=== PATIENT | female | born 1975 | race Two or more races ===

== ENCOUNTER 2020-05-13 09:07 | Outpatient (REF) | payer OTHER, SELFPAY ==
[2020-05-13 09:33] LABS: MANUAL DIFF FLAG NO
[2020-05-13 09:55] LABS: Basophils Percent Auto 0.5 % (0-2); Eosinophils Absolute Auto 0.1 X10*3/uL (0.0-0.4); Eosinophils Percent Auto 2.4 % (0-4); Hematocrit 42.3 % (37-47); Hemoglobin 13.7 g/dl (12.0-16.0); Imm Gran Abs Auto 0.02 X10*3/uL (0.00-0.03); Imm Gran Pct Auto 0.3 % (0.0-0.4); Lymphocytes Absolute Auto 1.7 X10*3/uL (1.2-4.9); Lymphocytes Percent Auto 27.9 % (20-40); Mean Corpuscular HGB Conc 32.4 g/dl (31.0-35.0); Mean Corpuscular Volume 83.3 fL (80-98); Mean Platelet Volume 10.2 fL (9.4-12.3); Monocytes Absolute Auto 0.4 X10*3/uL (0.1-1.2); Monocytes Percent Auto 5.9 % (2-11); Neutrophils Absolute Auto 3.8 X10*3/uL (2.0-8.3); Platelet Count 305 X10*3/uL (160-400); Red Blood Count 5.08 X10*6/uL (4.20-5.50); Red Cell Distribution Width 12.6 % (11.0-16.0)
[2020-05-13 10:20] LABS: Estimated Average Glucose 128 mg/dL; Hemoglobin A1c % 6.1 %
[2020-05-13 10:33] LABS: Alanine Aminotransferase 29 U/L (0-31); Albumin Level 4.6 g/dL (3.5-5.0); Alkaline Phosphatase 68 U/L (39-117); Anion Gap 16 (12-20); Aspartate Amino Transferase 25 U/L (5-31); Bilirubin Total 0.4 mg/dL (0.0-1.0); Blood Urea Nitrogen 14 mg/dL (9-16); Calcium 9.3 mg/dL (8.4-10.2); Carbon Dioxide 25 mmol/L (22-29); Chloride 103 mmol/L (96-108); Cholesterol 185 mg/dL; Estimated Glomerular Filt Rate > 60; Glucose Fasting 111 mg/dL (60-99); HDL Cholesterol 42 mg/dL; LDL Cholesterol Calculated 105 mg/dl; Potassium 4.5 mmol/l (3.3-5.1); Sodium 139 mmol/L (135-145); Total Protein 7.8 g/dL (6.5-8.0); Triglycerides 193 mg/dL
[2020-05-13 11:06] LABS: Folate > 20.0 ng/mL (> or = 4.0); Thyroid Stimulating Hormone 3.77 uIU/mL (0.32-4.0); Vitamin B12 914 pg/mL (200-900); Vitamin D 25-OH Total 30.1 ng/mL (>30)
[2020-05-13 11:47] LABS: T4 Thyroxine 6.2 ug/dL (4.5-12.0)
== END 2020-05-13 09:08 | disposition home or self-care (01) ==
LOC: HO.LAB 09:07
PROVIDERS: PCP Internal Medicine; Visit Provider Internal Medicine
DX: F41.8 Other specified anxiety disorders (principal); R73.01 Impaired fasting glucose
CPT/HCPCS: 36415; 80053; 80061; 82306; 82607; 82746; 83036; 84436; 84443; 85025

== ENCOUNTER 2020-06-07 10:51 | Outpatient (REF) | payer OTHER, SELFPAY ==
--- NOTE | 2020-06-07 10:54 | MM_ITS ---
EXAMINATION: MM SCREENING DIGITAL BREAST TOMOSYNTHESIS, BILATERAL CLINICAL INFORMATION: Screening. Asymptomatic. Family history breast cancer: Mother, sister, maternal grandmother. Benign ultrasound-guided right breast biopsy 05/09/2017 (fibroadenoma). The lifetime risk of breast cancer based on the Tyrer-Cuzick Model is 24%. COMPARISON: Mammography: 06/02/2019, 05/29/2018, 05/09/2017, 05/02/2017, 04/10/2017 TECHNIQUE: Digital breast tomosynthesis is performed in both the craniocaudal and mediolateral oblique views along with computer-aided detection (CAD). Synthesized 2D images are generated from the tomosynthesis. Additional left MLO view is provided. FINDINGS: The breasts are heterogeneously dense, which may obscure small masses (ACR BI-RADS breast composition Category c). There are no significant masses, abnormal calcifications, or other abnormalities. There is a known fibroadenoma again seen with biopsy clip marker posterior 3:30 position right breast. No significant changes from prior studies. MM/MM tomosynthesis screening BI IMPRESSION: No significant changes from prior studies. ASSESSMENT: BI-RADS 2: Benign RECOMMENDATION: 1. Routine annual mammography screening. 2. The lifetime risk of breast cancer based on the Tyrer-Cuzick Model is 24%. Additional annual adjunct screening with breast MRI may be of benefit in women with a risk score of 20% or greater. This patient's information was entered into a reminder system with a target due date for their next mammogram.
== END 2020-06-07 10:52 | disposition home or self-care (01) ==
LOC: HO.MAMMO 10:51
PROVIDERS: PCP Internal Medicine; Visit Provider Internal Medicine
DX: Z12.31 Encounter for screening mammogram for malignant neoplasm of breast (principal)
CPT/HCPCS: 77063; 77067

== ENCOUNTER 2020-07-05 12:48 | Outpatient (REF) | payer OTHER, SELFPAY ==
[2020-07-10 01:02] LABS: HPV 16 RNA DETECTED (NOT DETECTED); HPV mRNA E6/E7 rflx Detected (Not Detected)
== END 2020-07-05 12:49 | disposition home or self-care (01) ==
LOC: HO.LAB 12:48
PROVIDERS: Visit Provider Obstetrics & Gynecology
DX: Z01.419 Encounter for gynecological examination (general) (routine) without abnormal findings (principal); Z11.51 Encounter for screening for human papillomavirus (HPV); N87.0 Mild cervical dysplasia
CPT/HCPCS: 36415; 87624; 87625; 88141; 88142

== ENCOUNTER 2020-08-04 13:29 | Outpatient (REF) | payer OTHER, SELFPAY | END 2020-08-04 13:30 | disposition home or self-care (01) | LOC: HO.LAB 13:29 | PROVIDERS: Visit Provider Obstetrics & Gynecology | DX: N87.0 Mild cervical dysplasia (principal) | CPT/HCPCS: 57454; 81025; 88300; 88305 ==

== ENCOUNTER → 2020-08-18 14:19 | Outpatient (BNVA) | payer OTHER, SELFPAY | PROVIDERS: Visit Provider Obstetrics & Gynecology ==

== ENCOUNTER 2020-09-01 13:39 | Outpatient (REF) | payer OTHER, SELFPAY | END 2020-09-01 13:40 | disposition home or self-care (01) | LOC: HO.LAB 13:39 | PROVIDERS: Visit Provider Obstetrics & Gynecology | DX: N87.0 Mild cervical dysplasia (principal) | CPT/HCPCS: 57505; 88305; 99212 ==

== ENCOUNTER → 2020-09-21 13:32 | Outpatient (BNVA) | payer OTHER, SELFPAY | PROVIDERS: Visit Provider Obstetrics & Gynecology ==

== ENCOUNTER → 2020-10-07 09:32 | Outpatient (BNVA) | payer OTHER, SELFPAY | PROVIDERS: PCP Internal Medicine; Visit Provider Obstetrics & Gynecology | DX: N87.0 Mild cervical dysplasia (principal) | CPT/HCPCS: 99212 ==

== ENCOUNTER 2020-10-08 | Outpatient (REF) | payer OTHER, SELFPAY ==
[2020-10-08 09:33] VITALS: BMI 25.3
[2020-10-08 09:35] VITALS: BP 128/84; PULSE 83; RESP 16; TEMP 37.2; O2SAT 99
--- NOTE | 2020-10-08 10:19 | P.BOP_ITS ---
Brief Operative Note Date of Service: 05/14/20 Pre-op diagnosis: Persistent KELIN 1 with negative ECC Post-op diagnosis: same Procedure: LEEP Surgeon: Shay Magdaleno MD Anesthesia: other (Paracervical block) Was an Computer Information Science Professor used for this Procedure?: No Estimated blood loss (mL): 0 Pathology: other (Cervical cone +post Cerv lip) Condition: stable Disposition: other (Home)
--- NOTE | 2020-10-08 10:19 | MHC.SHP ---
Pre-Procedural Eval Section A The patient is an INPATIENT: No Changes since office visit: No Cold of Flu in the past 2 weeks, No New Medical Problems, No Changes in Medication and No Patient answered all questions The History & Physical has been completed within 30 days and I have reviewed it.: Yes Section B Chief Complaint: Persistant Mild cervical Dysplasia Allergies: Allergies Allergy/AdvReac Type Severity Reaction Status Date / Time No Known Allergies [NKA] Allergy Mild NOT Verified 10/07/20 09:44 APPLICABLE Plan Diagnosis/Plan: Unchanged I have reviewed the history and physical and performed a pertinent physical examination on my patient. No changes have occurred unless specified.
--- NOTE | 2020-10-08 10:20 | W.PM.OPN ---
Operative Note Operative Note Date of Service: 05/14/20 Narrative: Preop diagnosis: Persistent KELIN 1 with negative ECC Operation: LEEP Post op diagnosis: same Anesthesia: paracervical block Complications: none Pathology: Cervical cone and Posterior cervical lip QBL: minimal Procedure: The patient was put in the dorsal lithotomy position, was prepped and draped in the usual sterile fashion. A sterile speculum was inserted inside the patient vagina. Using Lugol solution the cervix with Dyed with Lugol solution to identifiy the abnormal demarcating line. 10 cc of Marcaine0.5% with epinephrine were given at 2,4 , 8, and 10 o'clock. Using a medium-size loop wire, the cervical cone was excised followed by the posterior cervical lip . Hemostasis was assured using cautery and Monsel solution. All instruments were taken out of the patient's vaginal cavity. the patient tolerated the procedure well and was discharged home with the following instructions: call if temperature is above 100.4, vaginal bleeding, abdominal pain or nausea or vomiting. Follow-up in the office in 2 weeks for postop visit
== END 2020-10-08 00:01 | disposition home or self-care (01) ==
LOC: HO.MS
PROVIDERS: Visit Provider Obstetrics & Gynecology
PROC: 0UBC7ZZ Excision of Cervix, Via Natural or Artificial Opening (ICD-10-PCS; CPT 57522; principal; 2020-10-08 09:40)
DX: N87.0 Mild cervical dysplasia (principal)
CPT/HCPCS: 57522; 88307; 99211

== ENCOUNTER → 2020-10-19 15:03 | Outpatient (BNVA) | payer OTHER, SELFPAY | PROVIDERS: Visit Provider Obstetrics & Gynecology ==

== ENCOUNTER 2021-03-24 09:48 | Outpatient (REF) | payer OTHER, SELFPAY ==
[2021-03-24 10:06] LABS: MANUAL DIFF FLAG NO
[2021-03-24 10:52] LABS: Basophils Percent Auto 0.3 % (0-2); Eosinophils Absolute Auto 0.1 X10*3/uL (0.0-0.4); Eosinophils Percent Auto 1.5 % (0-4); Hematocrit 39.1 % (37-47); Hemoglobin 12.6 g/dl (12.0-16.0); Imm Gran Abs Auto 0.03 X10*3/uL (0.00-0.03); Imm Gran Pct Auto 0.5 % (0.0-0.4); Lymphocytes Absolute Auto 1.6 X10*3/uL (1.2-4.9); Lymphocytes Percent Auto 25.8 % (20-40); Mean Corpuscular HGB Conc 32.2 g/dl (31.0-35.0); Mean Corpuscular Hemoglobin 26.5 pg (27.0-33.0); Mean Corpuscular Volume 82.3 fL (80-98); Mean Platelet Volume 9.9 fL (9.4-12.3); Monocytes Absolute Auto 0.4 X10*3/uL (0.1-1.2); Monocytes Percent Auto 5.8 % (2-11); Neutrophils Absolute Auto 4.1 X10*3/uL (2.0-8.3); Neutrophils Percent Auto 66.1 % (45-73); Platelet Count 282 X10*3/uL (160-400); Red Blood Count 4.75 X10*6/uL (4.20-5.50); Red Cell Distribution Width 12.8 % (11.0-16.0); White Blood Count 6.2 X10*3/uL (4.8-10.8)
[2021-03-24 11:16] LABS: Alanine Aminotransferase 25 U/L (0-31); Albumin Level 4.3 g/dL (3.5-5.0); Alkaline Phosphatase 66 U/L (39-117); Anion Gap 13 (12-20); Aspartate Amino Transferase 20 U/L (5-31); Bilirubin Total 0.4 mg/dL (0.0-1.0); Blood Urea Nitrogen 21 mg/dL (9-16); Calcium 9.7 mg/dL (8.4-10.2); Carbon Dioxide 24 mmol/L (22-29); Chloride 107 mmol/L (96-108); Cholesterol 174 mg/dL; Estimated Glomerular Filt Rate > 60; Glucose Random 127 mg/dL (60-115); HDL Cholesterol 41 mg/dL; LDL Cholesterol Calculated 112 mg/dl; Potassium 4.7 mmol/L (3.3-5.1); Sodium 139 mmol/L (135-145); Total Protein 7.4 g/dL (6.5-8.0); Triglycerides 108 mg/dL
[2021-03-24 11:24] LABS: Estimated Average Glucose 134 mg/dL; Hemoglobin A1c % 6.3 %
== END 2021-03-24 09:49 | disposition home or self-care (01) ==
LOC: HO.LAB 09:48
PROVIDERS: PCP Internal Medicine; Visit Provider Internal Medicine
DX: K21.9 Gastro-esophageal reflux disease without esophagitis (principal); R73.02 Impaired glucose tolerance (oral); E78.00 Pure hypercholesterolemia, unspecified
CPT/HCPCS: 36415; 80053; 80061; 83036; 85025

== ENCOUNTER 2021-07-12 09:21 | Outpatient (REF) | payer OTHER, SELFPAY ==
--- NOTE | ~2021-07-12 | MM_ITS ---
EXAMINATION: MM SCREENING DIGITAL BREAST TOMOSYNTHESIS, BILATERAL CLINICAL INFORMATION: Screening. Asymptomatic. Prior history benign right ultrasound-guided breast biopsy 05/09/2017 (fibroadenoma). The lifetime risk of breast cancer based on the Tyrer-Cuzick Model is 7%. COMPARISON: Mammography: 06/07/2020, 06/02/2019, 05/29/2018, 05/09/2017, 04/10/2017; ultrasound-guided right breast biopsy 05/09/2017, targeted right breast ultrasound 05/02/2017 TECHNIQUE: Digital breast tomosynthesis is performed in both the craniocaudal and mediolateral oblique views along with computer-aided detection (CAD). Synthesized 2D images are generated from the tomosynthesis. Additional right cleavage view is provided. FINDINGS: The breasts are heterogeneously dense, which may obscure small masses (ACR BI-RADS breast composition Category c). There are increased calcifications posterior medial right breast extending to the film margin. These are likely related to the previously sampled fibroadenoma. Patient will be recalled to obtain additional views. The breasts are otherwise similar to prior studies. There is no interval mass or architectural abnormality. Left breast shows no abnormal calcifications. The bilateral axilla and skin contours are unremarkable. MM/MM tomosynthesis screening BI IMPRESSION: 1. Right: Interval calcifications posterior medial right breast likely related to the fibroadenoma. 2. Left: No mammographic evidence of malignancy. ASSESSMENT: BI-RADS 0: Incomplete - Need Additional Imaging Evaluation RECOMMENDATION: 1. Additional views of the right breast (magnification medial CC, magnification LM). 2. Targeted ultrasound if warranted after review of the additional views. 3. Radiology department staff will contact the patient for additional imaging. This patient's information was entered into a reminder system with a target due date for their next mammogram.
== END 2021-07-12 09:22 | disposition home or self-care (01) ==
LOC: HO.MAMMO 09:21
PROVIDERS: PCP Internal Medicine; Visit Provider Internal Medicine
DX: Z12.31 Encounter for screening mammogram for malignant neoplasm of breast (principal)
CPT/HCPCS: 77063; 77067

== ENCOUNTER 2021-07-18 10:22 | Outpatient (REF) | payer OTHER, SELFPAY ==
[2021-07-21 22:46] LABS: HPV mRNA E6/E7 rflx Detected (Not Detected)
[2021-07-21 22:50] LABS: HPV 16 RNA DETECTED (NOT DETECTED)
== END 2021-07-18 10:23 | disposition home or self-care (01) ==
LOC: HO.LAB 10:22
PROVIDERS: PCP Internal Medicine; Visit Provider Obstetrics & Gynecology
DX: Z01.419 Encounter for gynecological examination (general) (routine) without abnormal findings (principal); Z11.51 Encounter for screening for human papillomavirus (HPV)
CPT/HCPCS: 87624; 87625; 88142

== ENCOUNTER 2021-07-26 08:55 | Outpatient (REF) | payer OTHER, SELFPAY ==
--- NOTE | ~2021-07-26 | MM_ITS ---
EXAMINATION: MM DIAGNOSTIC DIGITAL MAMMOGRAPHY, RIGHT CLINICAL INFORMATION: Recall from screening for calcifications posterior medial right breast extending to the film margin, likely related to previous biopsy proven fibroadenoma. COMPARISON: Mammography: 07/12/2021, 06/07/2020, ultrasound-guided right breast biopsy 05/09/2017. TECHNIQUE: Digital mammography is performed in the following views: Magnification CC, magnification LM x3. FINDINGS: The breasts are heterogeneously dense, which may obscure small masses (ACR BI-RADS breast composition Category c). There are scattered coarse calcifications limited to the area of the biopsy-proven fibroadenoma. Calcifications are increased from prior exam 06/07/2020. They will be reassessed again in 6 months to include magnification views. Results are discussed with the patient at time of visit. MM/MM added views RT IMPRESSION: Calcifications posterior medial right breast likely related to degenerating fibroadenoma. ASSESSMENT: BI-RADS 3: Probably Benign RECOMMENDATION: Diagnostic right mammography in 6 months. This patient's information was entered into a reminder system with a target due date for their next mammogram.
== END 2021-07-26 08:56 | disposition home or self-care (01) ==
LOC: HO.MAMMO 08:55
PROVIDERS: PCP Internal Medicine; Visit Provider Internal Medicine
DX: R92.1 Mammographic calcification found on diagnostic imaging of breast (principal); R92.2 Inconclusive mammogram
CPT/HCPCS: 77061; 77065

== ENCOUNTER 2021-08-12 11:41 | Outpatient (REF) | payer OTHER, SELFPAY ==
[2021-08-13 18:16] LABS: Rubella IgG Antibody 4.72 Index
[2021-08-14 22:01] LABS: TS Negative Control Passed; TS Panel A 0; TS Panel B 2; TS Positive Control Passed; TSpotTB Negative (Negative)
[2021-08-15 04:37] LABS: HBc Num1 0.06 S/CO (0.00-0.79); Hepatitis B Core Antibody Nonreactive (Nonreactive); ~Hepatitis B Surface Antibody NONREACTIVE (Nonreactive)
[2021-08-15 04:44] LABS: HBsAGNum1 0.22 S/CO (0.00-0.99); Hepatitis B Surface Antigen Negative (Negative)
== END 2021-08-12 11:42 | disposition home or self-care (01) ==
LOC: HO.LAB 11:41
PROVIDERS: PCP Internal Medicine; Visit Provider Internal Medicine
DX: Z01.84 Encounter for antibody response examination (principal); Z11.1 Encounter for screening for respiratory tuberculosis
CPT/HCPCS: 36415; 86481; 86704; 86706; 86735; 86762; 86765; 86787; 87340

== ENCOUNTER 2021-08-15 10:15 | Outpatient (REF) | payer OTHER, SELFPAY | END 2021-08-15 10:16 | disposition home or self-care (01) | LOC: HO.LAB 10:15 | PROVIDERS: PCP Internal Medicine; Visit Provider Obstetrics & Gynecology | DX: R87.610 Atypical squamous cells of undetermined significance on cytologic smear of cervix (ASC-US) (principal); R87.810 Cervical high risk human papillomavirus (HPV) DNA test positive; L91.8 Other hypertrophic disorders of the skin | CPT/HCPCS: 11200; 11421; 57454; 88304; 88305 ==

== ENCOUNTER 2021-08-26 09:17 | Outpatient (REF) | payer OTHER, SELFPAY ==
--- NOTE | ~2021-08-26 | XR_ITS ---
EXAMINATION: XR HAND, LEFT CLINICAL INFORMATION: Pain COMPARISON: Left wrist x-ray July 2008. TECHNIQUE: PA, lateral, and oblique views of the left hand. FINDINGS: Bone alignment is normal. There is new arthritis at the 1st LONG-TERM joint. On the lateral view, there is a well-corticated ossification, question arising from the trapezoid or trapezium versus accessory ossicle bone. Appearance is questionable for fracture, uncertain age. No other fracture is seen. Joint spaces are otherwise normal. Soft tissues are normal. XR/XR hand LT 2V IMPRESSION: New arthritis at the 1st LONG-TERM joint. Question fracture of the trapezoid or trapezium bones versus accessory ossicle, uncertain age, appreciated on the lateral view only.
[2021-08-26 09:34] LABS: MANUAL DIFF FLAG NO
[2021-08-26 09:57] LABS: Basophils Percent Auto 0.5 % (0-2); Eosinophils Absolute Auto 0.2 X10*3/uL (0.0-0.4); Eosinophils Percent Auto 3.7 % (0-4); Hematocrit 39.9 % (37.0-47.0); Hemoglobin 12.8 g/dl (12.0-16.0); Imm Gran Abs Auto 0.03 X10*3/uL (0.00-0.03); Imm Gran Pct Auto 0.5 % (0.0-0.4); Lymphocytes Absolute Auto 1.7 X10*3/uL (1.2-4.9); Lymphocytes Percent Auto 30.4 % (20-40); Mean Corpuscular HGB Conc 32.1 g/dl (31.0-35.0); Mean Corpuscular Hemoglobin 26.4 pg (27.0-33.0); Mean Corpuscular Volume 82.3 fL (80.0-98.0); Mean Platelet Volume 9.7 fL (9.4-12.3); Monocytes Absolute Auto 0.3 X10*3/uL (0.1-1.2); Monocytes Percent Auto 5.8 % (2-11); Neutrophils Absolute Auto 3.3 x10*3/uL (2.0-8.3); Neutrophils Percent Auto 59.1 % (45-73); Platelet Count 298 X10*3/uL (160-400); Red Blood Count 4.85 X10*6/uL (4.20-5.50); Red Cell Distribution Width 12.7 % (11.0-16.0); White Blood Count 5.7 X10*3/uL (4.8-10.8)
[2021-08-26 11:03] LABS: Estimated Average Glucose 151 mg/dL; Hemoglobin A1c % 6.9 %
[2021-08-26 11:34] LABS: Alanine Aminotransferase 39 U/L (0-31); Albumin Level 4.4 g/dL (3.5-5.0); Alkaline Phosphatase 80 U/L (39-117); Anion Gap 14 (12-20); Aspartate Amino Transferase 27 U/L (5-31); Bilirubin Total 0.5 mg/dL (0.0-1.0); Blood Urea Nitrogen 14 mg/dL (9-16); Calcium 9.8 mg/dL (8.4-10.2); Carbon Dioxide 24 mmol/L (22-29); Chloride 105 mmol/L (96-108); Cholesterol 189 mg/dL; Estimated Glomerular Filt Rate > 60; Glucose Random 143 mg/dL (60-115); HDL Cholesterol 38 mg/dL; LDL Cholesterol Calculated 108 mg/dl; Potassium 4.6 mmol/L (3.3-5.1); Sodium 138 mmol/L (135-145); Total Protein 7.8 g/dL (6.5-8.0); Triglycerides 216 mg/dL
== END 2021-08-26 09:18 | disposition home or self-care (01) ==
LOC: HO.XRAY 09:17
PROVIDERS: PCP Internal Medicine; Visit Provider Internal Medicine
DX: M79.642 Pain in left hand (principal); E78.00 Pure hypercholesterolemia, unspecified; E11.65 Type 2 diabetes mellitus with hyperglycemia
CPT/HCPCS: 36415; 73120; 80053; 80061; 83036; 84443; 85025

== ENCOUNTER → 2021-08-29 11:49 | Outpatient (BNVA) | payer OTHER, SELFPAY | PROVIDERS: Visit Provider Obstetrics & Gynecology | DX: Z13.89 Encounter for screening for other disorder (principal) ==

== ENCOUNTER 2021-09-09 08:00 | Outpatient (REF) | payer OTHER, SELFPAY ==
--- NOTE | ~2021-09-09 | XR_ITS ---
EXAMINATION: XR HAND, LEFT CLINICAL INFORMATION: Pain COMPARISON: None TECHNIQUE: Four views of the left hand. FINDINGS: No acute fracture or dislocation. There are severe degenerative changes of the first carpometacarpal joint with ipvv-cm-[id number] contact, subchondral sclerosis, subchondral cystic changes and marginal osteophytes. Small marginal osteophytes present throughout the distal interphalangeal joints. No erosive changes. Soft tissues unremarkable. XR/XR hand LT min 3V IMPRESSION: No acute findings. Severe degenerative changes of the first CMC joint
== END 2021-09-09 08:01 | disposition home or self-care (01) ==
LOC: HO.HOSX 08:00
PROVIDERS: Visit Provider Physician Assistant
DX: M18.12 Unilateral primary osteoarthritis of first carpometacarpal joint, left hand (principal)
CPT/HCPCS: 73130; 99202

== ENCOUNTER 2022-02-23 14:42 | Outpatient (REF) | payer OTHER, SELFPAY ==
--- NOTE | ~2022-02-23 | MM_ITS ---
EXAMINATION: MM DIAGNOSTIC DIGITAL BREAST TOMOSYNTHESIS, RIGHT CLINICAL INFORMATION: Probable benign calcifications contained within biopsy proven fibroadenoma posterior medial right breast. TC score 7%. COMPARISON: Mammography: 07/26/2021, 07/12/2021 (BI-RADS 0), 06/07/2020, 06/02/2019, ultrasound-guided right breast biopsy and postbiopsy mammography 05/09/2017. TECHNIQUE: Digital breast tomosynthesis is performed in both the craniocaudal and mediolateral oblique views along with computer-aided detection (CAD). Synthesized 2D images are generated from the tomosynthesis. Additional magnification CC and magnification LM views are obtained. FINDINGS: The breasts are heterogeneously dense, which may obscure small masses (ACR BI-RADS breast composition Category c). The coarse calcifications overlying the previously biopsy-proven fibroadenoma posterior medial right breast are similar to prior diagnostic exam. The calcifications are included within the extent of the fibroadenoma. Calcifications will be reassessed again at time of annual bilateral mammography, due in 6 months. Remainder of the right breast is unremarkable. Results are provided to the patient at time of visit by the technologist. MM/MM tomosynthesis diagnostic RT IMPRESSION: Probable benign calcifications corresponding to the biopsy-proven fibroadenoma are similar to prior diagnostic exam. ASSESSMENT: BI-RADS 3: Probably Benign RECOMMENDATION: Diagnostic mammography at time of bilateral annual mammography, due in 6 months. This patient's information was entered into a reminder system with a target due date for their next mammogram.
== END 2022-02-23 14:43 | disposition home or self-care (01) ==
LOC: HO.MAMMO 14:42
PROVIDERS: Visit Provider Internal Medicine
DX: R92.1 Mammographic calcification found on diagnostic imaging of breast (principal)
CPT/HCPCS: 77061; 77065

== ENCOUNTER 2022-04-18 10:45 | Outpatient (REF) | payer OTHER, SELFPAY ==
[2022-04-18 12:32] LABS: Alanine Aminotransferase 24 U/L (0-31); Albumin Level 4.5 g/dL (3.5-5.0); Alkaline Phosphatase 67 U/L (39-117); Anion Gap 14 (12-20); Aspartate Amino Transferase 21 U/L (5-31); Bilirubin Total 0.5 mg/dL (0.0-1.0); Blood Urea Nitrogen 13 mg/dL (9-16); Calcium 9.5 mg/dL (8.4-10.2); Carbon Dioxide 24 mmol/L (22-29); Chloride 106 mmol/L (96-108); Cholesterol 179 mg/dL; Estimated Glomerular Filt Rate > 60; Glucose Random 100 mg/dL (60-115); HDL Cholesterol 42 mg/dL; LDL Cholesterol Calculated 106 mg/dl; Potassium 4.6 mmol/L (3.3-5.1); Sodium 139 mmol/L (135-145); Total Protein 7.7 g/dL (6.5-8.0); Triglycerides 156 mg/dL
[2022-04-18 12:34] LABS: Estimated Average Glucose 126 mg/dL
[2022-04-18 13:17] LABS: Appearance Urine Clear; Color Urine Yellow; Glucose Urine UA Negative (Negative); Leukocyte Esterase Urine Negative (Negative); Nitrite Urine Negative (Negative); Specific Gravity - Urine >= 1.030 (1.005-1.025); Urine Blood Negative (Negative); Urine Ketones Negative (Negative); Urine Protein Negative (Neg-Trace)
[2022-04-18 14:17] LABS: Creatinine Urine 149.19 mg/dL; Microalbum/Creatinine Ratio Ur 13.4 ug/mg cr
[2022-04-18 14:22] LABS: RBC Urine 0-2 /HPF (0-2); WBC Urine 0-5 /HPF (0-5)
[2022-04-18 14:23] LABS: Bacteria Urine Trace (None Seen); Hyaline Casts Urine 0-2 /LPF (0-2)
== END 2022-04-18 10:46 | disposition home or self-care (01) ==
LOC: HO.LAB 10:45
PROVIDERS: PCP Internal Medicine; Visit Provider Internal Medicine
DX: E11.65 Type 2 diabetes mellitus with hyperglycemia (principal); E78.00 Pure hypercholesterolemia, unspecified
CPT/HCPCS: 36415; 80053; 80061; 81001; 82043; 83036

== ENCOUNTER → 2022-05-15 09:38 | Outpatient (REF) | payer OTHER, SELFPAY ==
--- NOTE | 2022-05-15 09:44 | HM_ITS ---
Conclusion: 1. Patient was monitored for total of 1 day 2. Baseline was normal sinus rhythm with average heart of 87 beats per minute 3. No significant pauses or bradycardia noted 4. Very rare ectopy noted 5. No patient reported events MTDD
--- NOTE | 2022-05-15 09:44 | CA_ITS ---
Transthoracic Echocardiogram Patient (Last, First, Middle): Jayne Sparks, Gender: Female Date of : 1975 Age: 46 Procedure Date: 05/15/2022 Procedure Type: Transthoracic Echocardiogram Location: OP Height: 170.18 cm Weight: 72.58 kg BSA: 1.84 m2 Heart Rate: bpm BP: 120 / 78 mmHg Genetic Coordinator: ROSARIO Referring MD: Denis Shepherd MD Symptoms: R00.2 - Palpitations Study Quality: Fair, contrast used ECG Rhythm: Sinus Conclusions: - The left ventricular systolic function is normal. The visually estimated ejection fraction is between 65-70%. - No obvious valvular pathology seen on this study. Findings Procedure Information Contrast agent, definity, is being given per protocol without apparent complications. Left Ventricle Normal left ventricular cavity size. There is normal left ventricular wall thickness. The left ventricular systolic function is normal. The visually estimated ejection fraction is between 65-70%. There is no evidence of regional wall motion abnormalities. Diastolic function is normal for age. LV peak GLS -17.4%. Right Ventricle Normal right ventricular cavity size and systolic function. Atria Both atria are normal in size. Aortic Valve There is a normal trileaflet aortic valve. There is no aortic valve stenosis. There is no aortic valve regurgitation. Mitral Valve The mitral valve appears normal. There is no mitral valve regurgitation. There is no mitral valve stenosis. Pulmonic Valve The pulmonic valve is likely normal. Tricuspid Valve Normal tricuspid valve structure. There is trace tricuspid valve regurgitation. There is no evidence of pulmonary hypertension. Great Vessels The aortic annulus, sinuses of valsalva, and asc aorta are normal in size. Venous The inferior vena cava is normal in size and collapses greater than 50% with inspiration. Pericardium/Pleural There is no evidence of pericardial effusion. Prior Study Comparison No significant change compared to prior study dated: 04/07/2016. Recommendations, Care & Conclusions No obvious valvular pathology seen on this study. Measurements 2D Linear Measurements IVSd: 1.12 0.6-0.9/0.6-1.0 cm LVIDd: 4.25 3.9-5.3/4.2-5.9 cm LVIDd Index: 2.31 2.4-3.2/2.2-3.1 cm/m2 LVIDs: 2.49 2.0-3.6 cm LVPWd: 0.94 0.7-1.1 cm LA Diam: 3.20 2.7-3.8/3.0-4.0 cm LAIDs Index: 1.74 1.5-2.3 cm/m2 LV Mass: 180.96 67-162/88-224 g LV Mass Index: 98.35 43-95/49-115 g/m2 LVOT Diam: 2.00 3.0+(-)1.3 cm 2D Systolic Function EF 4C: 67.30 >55% EF 2C: 74.60 >55% EF BiP: 71.20 >55% Mitral Valve MV Pk E: 0.66 MV PK A: 0.62 MV Decel Time: 207.00 E/A: 1.10 E'Lateral: 10.20 E'Medial: 7.83 E/E' Med: 8.40 E/E' Lat: 6.40 PHT: 61.00 MVA PHT: 3.61 Decel [place]: 3.16 Aortic Valve AoV Pk Guille: 1.45 AoV Mn Guille: 0.98 AoV VTI: 0.26 AoV Pk Grad: 8.00 Aov Mn Grad: 4.00 JUNAID Cont.VTI: 2.54 LVOT LVOT Pk Guille: 1.16 LVOT Mn Guille: 0.82 LVOT VTI: 0.21 LVOT Pk Grad: 5.00 LVOT Mn Grad: 3.00 LVOT Diam: 2.00 LVOT Area: 3.14 Diastolic Function MV Pk E: 0.66 MV Pk A: 0.62 E/A: 1.10 E'Medial: 7.83 E/E' Med: 8.40 E' Laterial: 10.20 E/E' Lat: 6.40 Right Ventricle TAPSE (mm): 19.90 TVS' Guille: 12.60 Tricuspid Valve TR Pk Guille: 2.32 TR Pk Grad: 22.00 RA Press: 3.00 RVSP: 25.00 Great Vessels Aorta Sinus of Valsalva: 3.50 2.0-3.[address] [place]: 2.64 1.7-3.4 cm Ao Asc: 3.20 2.1-3.4 cm Updated in Other Vendor System with Status of Final Jose Cullen MD electronically signed on 05/15/2022 12:41:40 PM with status of Final
== END ==
LOC: HO.CARD 09:38
PROVIDERS: PCP Internal Medicine; Visit Provider Internal Medicine
DX: R00.2 Palpitations (principal)
CPT/HCPCS: 93226; 93306; 93356; Q9957

== ENCOUNTER 2022-08-30 10:35 | Outpatient (REF) | payer OTHER, SELFPAY ==
--- NOTE | ~2022-08-30 | MM_ITS ---
EXAMINATION: MM DIAGNOSTIC DIGITAL BREAST TOMOSYNTHESIS, BILATERAL CLINICAL INFORMATION: Right breast calcifications. Screening left breast study. Previous right breast biopsy demonstrating pathology of fibroadenoma. The lifetime risk of breast cancer based on the Tyrer-Cuzick Model is 10.3%. COMPARISON: Mammography: 02/23/2022 and studies dating back to 02/25/2016. TECHNIQUE: Digital breast tomosynthesis is performed in both the craniocaudal and mediolateral oblique views along with computer-aided detection (CAD). Synthesized 2D images are generated from the tomosynthesis. Spot magnification films of the right breast in craniocaudal and 90 degree mediolateral views also performed. FINDINGS: The breasts are extremely dense, which lowers the sensitivity of mammography (ACR BI-RADS breast composition Category d). LEFT BREAST: There is a stable parenchymal pattern of the left breast with some circumscribed densities again being noted. RIGHT BREAST: There is an increase in calcifications about the previous biopsy site medial aspect of the right breast involving the known fibroadenoma. Recommend 1 year diagnostic follow-up study. Results are provided to the patient at time of visit by the technologist. MM/MM tomosynthesis diagnostic BI IMPRESSION: Increasing calcifications in region of right breast fibroadenoma. Otherwise stable appearance of the breasts. ASSESSMENT: BI-RADS 3: Probably Benign RECOMMENDATION: Diagnostic mammography at time of next annual exam, due in 12 months. This patient's information was entered into a reminder system with a target due date for their next mammogram.
== END 2022-08-30 10:36 | disposition home or self-care (01) ==
LOC: HO.MAMMO 10:35
PROVIDERS: Visit Provider Internal Medicine
DX: R92.1 Mammographic calcification found on diagnostic imaging of breast (principal)
CPT/HCPCS: 77062; 77066

== ENCOUNTER 2022-10-09 10:02 | Outpatient (REF) | payer OTHER, SELFPAY ==
[2022-10-13 03:39] LABS: HPV 16 RNA DETECTED (NOT DETECTED); HPV mRNA E6/E7 rflx Detected (Not Detected)
== END 2022-10-09 10:03 | disposition home or self-care (01) ==
LOC: HO.LNP 10:02
PROVIDERS: PCP Internal Medicine; Visit Provider Obstetrics & Gynecology
DX: Z01.419 Encounter for gynecological examination (general) (routine) without abnormal findings (principal)
CPT/HCPCS: 87624; 87625; 88142

== ENCOUNTER → 2022-11-10 09:45 | Outpatient (BNVA) | payer OTHER, SELFPAY | PROVIDERS: PCP Internal Medicine; Visit Provider Nurse Practitioner | DX: Z01.818 Encounter for other preprocedural examination (principal) | CPT/HCPCS: 99202 ==

== ENCOUNTER 2022-11-15 08:48 | Outpatient (REF) | payer OTHER, SELFPAY ==
[2022-11-15 08:57] LABS: MANUAL DIFF FLAG NO
[2022-11-15 09:29] LABS: Basophils Percent Auto 0.5 % (0-2); Eosinophils Absolute Auto 0.1 X10*3/uL (0.0-0.4); Eosinophils Percent Auto 1.7 % (0-4); Hematocrit 38.7 % (37.0-47.0); Hemoglobin 12.4 g/dl (12.0-16.0); Imm Gran Abs Auto 0.03 X10*3/uL (0.00-0.03); Imm Gran Pct Auto 0.5 % (0.0-0.4); Lymphocytes Absolute Auto 1.9 X10*3/uL (1.2-4.9); Lymphocytes Percent Auto 30.2 % (20-40); Mean Corpuscular Hemoglobin 26.5 pg (27.0-33.0); Mean Corpuscular Volume 82.7 fL (80.0-98.0); Mean Platelet Volume 10.1 fL (9.4-12.3); Monocytes Absolute Auto 0.4 X10*3/uL (0.1-1.2); Monocytes Percent Auto 5.7 % (2-11); Neutrophils Absolute Auto 3.9 x10*3/uL (2.0-8.3); Neutrophils Percent Auto 61.4 % (45-73); Platelet Count 290 X10*3/uL (160-400); Red Blood Count 4.68 X10*6/uL (4.20-5.50); Red Cell Distribution Width 13.2 % (11.0-16.0); White Blood Count 6.4 X10*3/uL (4.8-10.8)
[2022-11-15 09:41] LABS: Estimated Average Glucose 134 mg/dL; Hemoglobin A1C 151.4195 umol/L; Hemoglobin A1c % 6.3 %
[2022-11-15 10:01] LABS: Creatinine Urine 137.44 mg/dL; Microalbum/Creatinine Ratio Ur 20.3 ug/mg cr
[2022-11-15 10:14] LABS: Alanine Aminotransferase 29 U/L (0-31); Albumin Level 4.3 g/dL (3.5-5.0); Alkaline Phosphatase 60 U/L (39-117); Anion Gap 13 (12-20); Aspartate Amino Transferase 23 U/L (5-31); Bilirubin Total 0.4 mg/dL (0.0-1.0); Blood Urea Nitrogen 22 mg/dL (9-16); Calcium 9.5 mg/dL (8.4-10.2); Carbon Dioxide 23 mmol/L (22-29); Chloride 106 mmol/L (96-108); Cholesterol 191 mg/dL; Estimated Glomerular Filt Rate > 60; Glucose Random 207 mg/dL (60-115); HDL Cholesterol 42 mg/dL; LDL Cholesterol Calculated 98 mg/dl; Potassium 3.8 mmol/L (3.3-5.1); Sodium 138 mmol/L (135-145); Total Protein 7.7 g/dL (6.5-8.0); Triglycerides 259 mg/dL
[2022-11-15 10:42] LABS: Free T4 (Free Thyroxine) 0.81 ng/dL (0.71-1.85); Thyroid Stimulating Hormone 3.64 uIU/mL (0.32-4.0); Vitamin D 25-OH Total 35.1 ng/mL (>30)
[2022-11-15 11:06] LABS: Folate 14.4 ng/mL (> or = 4.0); Vitamin B12 590 pg/mL (200-900)
== END 2022-11-15 08:49 | disposition home or self-care (01) ==
LOC: HO.LAB 08:48
PROVIDERS: PCP Internal Medicine; Visit Provider Internal Medicine
DX: E11.65 Type 2 diabetes mellitus with hyperglycemia (principal); E78.00 Pure hypercholesterolemia, unspecified
CPT/HCPCS: 36415; 80053; 80061; 82043; 82306; 82607; 82746; 83036; 84439; 84443; 85025

== ENCOUNTER 2022-11-22 09:39 | Outpatient (REF) | payer OTHER, SELFPAY | END 2022-11-22 09:40 | disposition home or self-care (01) | LOC: HO.LNP 09:39 | PROVIDERS: PCP Internal Medicine; Visit Provider Obstetrics & Gynecology | DX: Z32.02 Encounter for pregnancy test, result negative (principal) | CPT/HCPCS: 57454; 81025; 88305 ==

== ENCOUNTER 2022-12-26 09:56 | Outpatient (AMB) | payer OTHER, SELFPAY ==
--- NOTE | 2022-12-26 09:59 | A.OFFVIS_ITS ---
Intake Vital Signs 12/26/22 10:02 Height 5 ft 7 in Weight 165 lb 5.547 oz BMI 25.9 BP 118/70 Intake Visit Reasons: Colpo Results Dressmaking Teacher Required: Yes Dressmaking Teacher Language: Tumbler Machine Operator Name: Halima SHORT Information Interpreted: non-clinical & clinical Accompanied by: Self / Same As Patient Allergies No Known Allergies [NKA] Allergy (Mild, Verified 12/26/22 10:04) NOT APPLICABLE HPI HPI Comments History of Present Illness Details Presenting post colpo for follow-up. The patient is doing well with no complaints. The pathology showed the following: A. Endocervix, curettage: Endocervical glandular mucosa with squamous metaplasia and acute inflammation; negative for dysplasia. B. Cervix, 6:00, biopsy: Squamous mucosa; negative for dysplasia; no endocervical glandular component present. C. Cervix, 12:00, biopsy: Squamous mucosa; negative for dysplasia; no end ocervical glandular component present Comment: The patient's previous negative Pap test ([id number]) concurs with the current biopsies. [facility] Medical History Anxiety Diverticular disease Dysplasia of cervix, low grade (KELIN 1) Fibroadenoma of breast GERD (gastroesophageal reflux disease) Hermansky-Pudlak syndrome Left ulnar fracture Overweight (BMI 25.0-29.9) Skin tag Varicose vein of leg Vision blurred Vitamin D deficiency Well woman exam Surgical History H/O LEEP History of cholecystectomy Family History Sister Uterine cancer Social History Housing: Apartment Alcohol intake: never Patient Tobacco Use Status: Never used Tobacco e-Cigarette/Vaping Use: Never Used Second Hand Smoke Exposure: No service: No Current occupational status: employed 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 Gender identity: Female Cognitive needs: No Hearing needs: No Vision needs: No Female Reproductive History Menstrual Age of Menarche: 11 Review of Systems Const All systems reviewed & are unremarkable except as noted in HPI and below Reports as per HPI and Reports no additional complaints GI Reports no additional complaints Reports no additional complaints Physical Exam Vital Signs: Last Vital Signs BP 118/70 12/26/22 10:02 BMI result Body Mass Index 25.9 Assessment & Plan Assessment & Plan (1) HPV (human papilloma virus) infection: Code(s): B97.7 - Papillomavirus as the cause of diseases classified elsewhere Plan: Discussed with the patient the pathology results of the colposcopy biopsies & endocervical curettage ( negative). Discussed with the patient the sensitivity specificity, positive and negative predictive value in detecting cervical cancer in addition discussed the regression, persistence and progression rates. Recommended co-testing in 12 months, if cytology and or HPV are abnormal will proceed was colposcopy biopsy and endocervical curettage. Instructions given to the patient to schedule a co test appointment in 1 year. All questions answered the patient verbalized understanding. Coding Level of Care Code Est Pt Level 3 (13988) Diagnoses HPV (human papilloma virus) infection B97.7
[2022-12-26 10:02] VITALS: BP 118/70; BMI 25.9
== END 2022-12-26 10:14 | disposition home or self-care (01) ==
LOC: HO.HWS 09:56
PROVIDERS: PCP Internal Medicine; Visit Provider Obstetrics & Gynecology
DX: R87.821 Vaginal low risk human papillomavirus (HPV) DNA test positive (principal)
CPT/HCPCS: 99213

== ENCOUNTER → 2022-12-26 09:56 | Outpatient (BNVA) | payer OTHER, SELFPAY | PROVIDERS: PCP Internal Medicine; Visit Provider Obstetrics & Gynecology | DX: A63.0 Anogenital (venereal) warts (principal) | CPT/HCPCS: 99212 ==

== ENCOUNTER 2023-03-06 12:21 | Outpatient (REF) | payer OTHER, SELFPAY ==
[2023-03-06 14:25] LABS: Alanine Aminotransferase 16 U/L (0-31); Albumin Level 4.4 g/dL (3.5-5.0); Alkaline Phosphatase 65 U/L (39-117); Anion Gap 14 (12-20); Aspartate Amino Transferase 16 U/L (5-31); Bilirubin Total 0.3 mg/dL (0.0-1.0); Blood Urea Nitrogen 15 mg/dL (9-16); Carbon Dioxide 21 mmol/L (22-29); Chloride 105 mmol/L (96-108); Cholesterol 140 mg/dL (<200); Estimated Glomerular Filt Rate > 60; Glucose Random 101 mg/dL (60-115); HDL Cholesterol 43 mg/dL (>40); LDL Cholesterol Calculated 72 mg/dL (<100); Sodium 136 mmol/L (135-145); Total Protein 7.9 g/dL (6.5-8.0); Triglycerides 127 mg/dL (<150)
== END 2023-03-06 12:22 | disposition home or self-care (01) ==
LOC: HO.LAB 12:21
PROVIDERS: PCP Internal Medicine; Visit Provider Internal Medicine
DX: E78.00 Pure hypercholesterolemia, unspecified (principal); E11.65 Type 2 diabetes mellitus with hyperglycemia
CPT/HCPCS: 36415; 80053; 80061; 82570

== ENCOUNTER 2023-03-07 09:34 | Outpatient (AMB) | payer OTHER, SELFPAY ==
--- NOTE | 2023-03-07 09:38 | MHC.PC.OV ---
Vital Signs 03/07/23 09:39 Height 5 ft 7 in Weight 163 lb 6 oz BMI 25.6 BP 112/68 Blood Pressure Location Lt brachial Position Sitting Pulse 81 Pulse Source Pulse Oximeter Pulse Oximetry (%) 96 Oxygen Delivery Method Room Air Intake Visit Reasons: DM Intake Note: Patient is here to follow up on DM. Corporate Wellness Coordinator Required: No Microchip Specialist: Not Required per policy Accompanied by: Self / Same As Patient Allergies No Known Allergies [NKA] Allergy (Mild, Verified 03/07/23 09:39) NOT APPLICABLE Medication List - Last Reconciled 03/07/23 by Denis Shepherd MD blood sugar diagnostic (FreeStyle Lite Strips) As directed check the BS QD blood-glucose meter (FreeStyle Lite Meter kit) As directed cholecalciferol (vitamin D3) 10 mcg PO DAILY lancets (FreeStyle Lancets) As directed check BS QD lisinopril 2.5 mg PO DAILY 90 days metformin 500 mg PO BID 30 days peg 3350-electrolytes 236-22.74-6.74 -5.86 gram (Golytely) 240 mL PO Q10M 1 day simvastatin 10 mg PO BEDTIME 90 days triamcinolone acetonide 0.5% 1 appl topical BID 14 days Tobacco use date assessed: 03/07/23 Dental Screening Dental Screen Date: 03/07/23 Did you have a dental visit in the last 12 months?: Yes Did you have a dental problem in the last 6 months where you did not have access to dental care?: No Was dental information given to patient?: Patient has dentist HPI DM HPI Details 47-year-old overweight female with controlled diabetes mellitus, hypercholesterolemia coming in for follow-up. Last seen November 2022. Patient has mammogram is up-to-date and colonoscopy is up-to-date. [facility] Medical History (Updated 03/07/23 @ 09:59 by Denis Shepherd MD) Pre-op examination Encounter for screening colonoscopy Palpitations Fibroadenoma of breast Skin tag Well woman exam Vision blurred Varicose vein of leg Diverticular disease Left ulnar fracture GERD (gastroesophageal reflux disease) Hermansky-Pudlak syndrome Vitamin D deficiency Anxiety Overweight (BMI 25.0-29.9) Dysplasia of cervix, low grade (KELIN 1) Surgical History History of cholecystectomy H/O LEEP Family History Sister Uterine cancer Social History Housing: Apartment Alcohol intake: never Patient Tobacco Use Status: Never used Tobacco e-Cigarette/Vaping Use: Never Used Second Hand Smoke Exposure: No service: No Current occupational status: employed 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 Johnny Murphy, Antionette Alexander, Guy Cortes and colleagues, with an educational carla from [email or web address]. Physical exam (Primary Care) Vital Signs: Last Vital Signs Pulse 81 03/07/23 09:39 BP 112/68 03/07/23 09:39 Pulse Ox 96 03/07/23 09:39 Oxygen Delivery Method Room Air 03/07/23 09:39 BMI result Body Mass Index 25.6 Tobacco/Smoking Status: Tobacco use Status Tobacco use date assessed 03/07/23 03/07/23 09:44 Patient Tobacco Use Status Never used Tobacco 03/07/23 09:44 e-Cigarette/Vaping Use Never Used 03/07/23 09:44 Thrive Assessment: Date of Thrive Assessment Date Thrive assessed 08/03/22 03/07/23 09:44 Const General: alert; No acute distress Eyes Conjunctivae: conjunctivae normal Resp Auscultation: clear to auscultation bilaterally Cardio Rate: regular rate Rhythm: regular rhythm GI Inspection: Yes normal to inspection Extrem General: Yes normal to inspection and No edema Office Procedures Flu Questionnaire Does the patient have a severe egg allergy?: No Does the patient have severe life threatening allergies?: No Does the patient have a fever or illness today?: No Has the patient ever had Guillain-Ceres Syndrome?: No Has the patient ever had any past reaction to a flu shot?: No Results AMB Hemoglobin A1c AMB Hemoglobin A1c 6.5 % Last Edit by HAN San on 03/07/23 09:54 Immunizations flu vacc [id number] 6mos up(PF) 60 mcg(15 mcgx4)/0.5 mL IM syringe Performing Provider: Denis Shepherd MD [facility] Administered by: LOREN Baker on 03/07/23 09:46 Dose Route Admin Location Dispensed Lot Number Expiration Date NDC Per Diem Rn 0.5 mL IM Left Deltoid 0.5 mL [id number] 12/02/23 [id number] [employer] VIS Given Date VIS Provided VIS Publication Date 03/07/23 Single Vaccine 21 Eligibility Eligibility Date Funding Source Not VFC Eligible 03/07/23 Private Results Reviewed Results Reviewed: Laboratory Last Values Hgb A1c (Clinic) 6.5 % (4.0-6.0) H 03/07/23 09:38 Assessment and Plan Assessment & Plan (1) Type 2 diabetes mellitus with hyperglycemia: Comment: Dr. Noonan. Eye and lasik Code(s): E11.65 - Type 2 diabetes mellitus with hyperglycemia Plan: Decrease the amount of carbohydrate intake, pasta, bread, rice and potatoes are all sugar and that is aside from all the sweet stuff, remember that fruits are good but they are Sweet also. Hemoglobin A1c goal of less than 6.5 patient is on metformin 500 twice a day (2) Hypercholesterolemia: Code(s): E78.00 - Pure hypercholesterolemia, unspecified Plan: Avoid fried foods, chicken skin, eggs, butter margarine, pastries and meat. Be it pork or beef they have a lot of cholesterol LDL goal of less than 100 and triglyceride of less than 150. Patient on simvastatin 10 mg at bedtime (3) Overweight (BMI 25.0-29.9): Code(s): E66.3 - Overweight Plan: Diet and exercise Orders: Orders Influenza [id number] Immunization Today Z23 - Encounter for immunization AMB Hemoglobin A1c Today E11.65 - Type 2 diabetes mellitus with hyperglycemia Medications: Refilled triamcinolone acetonide 0.5% 1 appl topical BID 45 grams 0RF 14 days L30.9 - Dermatitis, unspecified Coding Level of Care Code Est Pt Level 4 (75920) Diagnoses Type 2 diabetes mellitus with hyperglycemia E11.65 Hypercholesterolemia E78.00 Overweight (BMI 25.0-29.9) E66.3
[2023-03-07 09:39] VITALS: BP 112/68; PULSE 81; O2SAT 96; BMI 25.6
== END 2023-03-07 10:05 | disposition home or self-care (01) ==
PROVIDERS: PCP Internal Medicine; Visit Provider Internal Medicine
DX: E11.65 Type 2 diabetes mellitus with hyperglycemia (principal); E78.00 Pure hypercholesterolemia, unspecified; E66.3 Overweight; Z23 Encounter for immunization
CPT/HCPCS: 83036; 90471; 90686; 99214

== ENCOUNTER 2023-05-23 11:18 | Outpatient (AMB) | payer OTHER, SELFPAY ==
[2023-05-23 11:28] VITALS: BP 110/80; PULSE 71; O2SAT 100; BMI 25.5
--- NOTE | 2023-05-23 11:28 | MHC.PC.OV ---
Vital Signs 05/23/23 11:28 Height 5 ft 7 in Weight 163 lb 0.2 oz BMI 25.5 BP 110/80 Blood Pressure Location Lt brachial Position Sitting Pulse 71 Pulse Source Pulse Oximeter Pulse Oximetry (%) 100 Oxygen Delivery Method Room Air Intake Visit Reasons: Annual Exam Public Safety Telecommunicator Required: No Allergies No Known Allergies [NKA] Allergy (Mild, Verified 05/23/23 11:32) NOT APPLICABLE Medication List - Last Reconciled 05/23/23 by Denis Shepherd MD ascorbate calcium (vitamin C) 500 mg PO DAILY blood sugar diagnostic (FreeStyle Lite Strips) As directed check the BS QD blood-glucose meter (FreeStyle Lite Meter kit) As directed cholecalciferol (vitamin D3) 10 mcg PO DAILY lancets (FreeStyle Lancets) As directed check BS QD lisinopril 2.5 mg PO DAILY 90 days metformin 500 mg PO BID 30 days simvastatin 10 mg PO BEDTIME 90 days triamcinolone acetonide 0.5% 1 appl topical BID 14 days Tobacco use date assessed: 05/23/23 Dental Screening Dental Screen Date: 05/23/23 Did you have a dental visit in the last 12 months?: Yes Did you have a dental problem in the last 6 months where you did not have access to dental care?: No Was dental information given to patient?: Patient has dentist HPI Annual Exam HPI Details 47-year-old female with diabetes mellitus hypercholesterolemia coming in for physical exam last seen in March 2023. Mammogram is up-to-date colonoscopy up-to-date Pap smear up-to-date . [facility] Medical History (Updated 05/23/23 @ 11:57 by Denis Shepherd MD) Annual physical exam Pre-op examination Encounter for screening colonoscopy Palpitations Fibroadenoma of breast Skin tag Well woman exam Vision blurred Varicose vein of leg Diverticular disease Left ulnar fracture GERD (gastroesophageal reflux disease) Hermansky-Pudlak syndrome Vitamin D deficiency Anxiety Overweight (BMI 25.0-29.9) Dysplasia of cervix, low grade (KELIN 1) Surgical History History of cholecystectomy H/O LEEP Family History Sister Uterine cancer Social History Housing: Apartment Alcohol intake: never Patient Tobacco Use Status: Never used Tobacco e-Cigarette/Vaping Use: Never Used Second Hand Smoke Exposure: No service: No Current occupational status: employed 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 1. Little interest or pleasure in doing things: not at all 2. Feeling down, depressed, or hopeless: not at all 3. Trouble falling or staying asleep, or sleeping too much: not at all 4. Feeling tired or having little energy: not at all 5. Poor appetite or overeating: not at all 6. Feeling bad about yourself - or that you are a failure or have let yourself or your family down: not at all 7. Trouble concentrating on things, such as reading the newspaper or watching television: not at all 8. Moving or speaking so slowly that other people could have noticed. Or the opposite - being so fidgety or restless that you have been moving around a lot more than usual: not at all 9. Thoughts that you would be better off or of hurting yourself in some way: not at all Total score: 0 Depression Screening Interpretation: Negative Depression Screening Done: Yes Source: Developed by Drs. Johnny Murphy, Antionette Alexander, Guy Cortes and colleagues, with an educational carla from [employer]. Thrive Questionnaire Date Thrive assessed: 08/03/22 AUDIT C Alcohol Use Questionnaire (AUDIT-C) 1. How often do you have a drink containing alcohol?: Monthly or less 2. How many drinks containing alcohol do you have on a typical day when you are drinking?: 1 or 2 3. How often do you have six or more drinks on one occasion?: Never Total Score: 1 LUIS-7 AMB Questionnaire LUIS-7 Date LUIS - 7 assessed: 05/23/23 Feeling nervous, anxious, or on edge: 0 = Not at all Not being able to stop or control worryin = Not at all Worrying too much about different things: 0 = Not at all Trouble relaxin = Not at all Being so restless that it is hard to sit still: 0 = Not at all Becoming easily annoyed or irritable: 0 = Not at all Feeling afraid as if something awful might happen: 0 = Not at all Total LUIS-7 score (0-4 normal; 5-9 mild; 10-14 moderate; 15-21 severe): 0 Source: Developed by Drs. Johnny Murphy, Antionette Alexander, Guy Cortes and colleagues, with an educational carla from [employer]. Review of Systems Const Denies poor appetite and Denies weakness Eyes Denies no additional complaints ENT Reports Normal hearing present, Denies dizziness, Denies nasal congestion, Denies tinnitus and Denies sore throat Card Denies chest pain, Denies syncope, Denies rapid heart rate and Denies dyspnea Resp Denies cough and Denies dyspnea GI Denies change in stool character, Reports constipation, Denies diarrhea, Denies nausea and Denies vomiting Denies urinary frequency, Denies difficulty voiding and Denies dysuria Neuro Reports Normal hearing present, Denies confusion, Denies dizziness, Denies syncope and Denies weakness Psych Denies confusion Physical exam (Primary Care) Vital Signs: Last Vital Signs Pulse 71 05/23/23 11:28 BP 110/80 05/23/23 11:28 Pulse Ox 100 05/23/23 11:28 Oxygen Delivery Method Room Air 05/23/23 11:28 BMI result Body Mass Index 25.5 Tobacco/Smoking Status: Tobacco use Status Tobacco use date assessed 05/23/23 05/23/23 11:30 Patient Tobacco Use Status Never used Tobacco 05/23/23 11:30 e-Cigarette/Vaping Use Never Used 05/23/23 11:30 PHQ-9: PHQ-9 Score PHQ-9: Total score 0 05/23/23 11:50 Depression Screening Interpretation: Negative Thrive Assessment: Date of Thrive Assessment Date Thrive assessed 08/03/22 05/23/23 11:30 Const General: No confusion Orientation/consciousness: No confusion HENMT Head: Yes normocephalic Ears: external ears normal and TM's normal bilaterally Face and sinus: Yes normal facial exam Mouth: moist mucous membranes Throat: Yes tonsils normal Eyes Conjunctivae: conjunctivae normal Pupils: Equal, round and reactive pupils present and Pupil accommodation reflex normal Direct Ophthalmoscopy: normal light reflex Neck Neck: No lymphadenopathy Thyroid: Thyroid normal Chest Chest palpation & inspection: normal inspection of the chest Resp Effort & Inspection: normal respiratory effort and no audible wheezes Auscultation: clear to auscultation bilaterally, no crackles, no wheezes and lung sounds not diminished Cardio Rate: regular rate Rhythm: regular rhythm Peripheral pulses: radial pulses present and dorsalis pedis present GI Palpation (GI): no masses Auscultation: normal bowel sounds and normoactive bowel sounds Rectal Exam - Female: deferred Skin General skin exam: no rashes or lesions noted Rashes: no rashes Neuro General: No confusion Cranial nerves: Yes Equal, round and reactive pupils present and Yes Normal hearing present Cognition (Neuro): normal cognition Gait exam (Neuro): Normal gait present Motor exam (neuro): 5/5 motor strength present throughout Deep tendon reflexes (DTR's): Right brachioradialis reflex intensity grade: 2+, Left brachioradialis reflex intensity grade: 2+, Right patellar reflex intensity grade: 2+ and Left patellar reflex intensity grade: 2+ Extrem General: No edema Results AMB Hemoglobin A1c AMB Hemoglobin A1c 6.7 % Last Edit by HAN Pak on 05/23/23 11:50 Results Reviewed Results Reviewed: Laboratory Last Values Hgb A1c (Clinic) 6.7 % (4.0-6.0) H 05/23/23 11:36 Assessment and Plan Assessment & Plan (1) Annual physical exam: Code(s): Z00.00 - Encounter for general adult medical examination without abnormal findings (2) Type 2 diabetes mellitus with hyperglycemia: Comment: Dr. Noonan. Eye and lasik Code(s): E11.65 - Type 2 diabetes mellitus with hyperglycemia Plan: Decrease the amount of carbohydrate intake, pasta, bread, rice and potatoes are all sugar and that is aside from all the sweet stuff, remember that fruits are good but they are Sweet also. Hemoglobin A1c goal of less than 6.5 metformin 500 mg twice a day (3) Hypercholesterolemia: Code(s): E78.00 - Pure hypercholesterolemia, unspecified Plan: Avoid fried foods, chicken skin, eggs, butter margarine, pastries and meat. Be it pork or beef they have a lot of cholesterol LDL goal of less than 100 and triglyceride of less than 150 simvastatin 10 mg once a Orders: Orders AMB Hemoglobin A1c Today E11.65 - Type 2 diabetes mellitus with hyperglycemia Medications: Changed From metformin 500 mg PO BID 30 days 180 tabs 3RF E11.65 - Type 2 diabetes mellitus with hyperglycemia To metformin 1,000 mg PO BID 30 days 60 tabs 3RF E11.65 - Type 2 diabetes mellitus with hyperglycemia Coding Level of Care Code Est Pt [facility] Care 40-64y(25026) Diagnoses Annual physical exam Z00.00 Type 2 diabetes mellitus with hyperglycemia E11.65 Hypercholesterolemia E78.00
== END 2023-05-23 12:16 | disposition home or self-care (01) ==
PROVIDERS: Visit Provider Internal Medicine
DX: Z00.00 Encounter for general adult medical examination without abnormal findings (principal); E11.65 Type 2 diabetes mellitus with hyperglycemia; E78.00 Pure hypercholesterolemia, unspecified
CPT/HCPCS: 83036; 99396

== ENCOUNTER 2023-06-11 12:42 | Day surgery (SDC) | payer OTHER, SELFPAY ==
--- NOTE | 2023-06-08 12:04 | HO.ANESPROP2 ---
Documented by User: Dulce Maria Vilchis NP 06/08/23 12:05 HPI - Anesthesia Eval Consult details Narrative: 47yo F for Colonoscopy PMFSH Active Problems Active Problems: All Active Problems (Updated 05/23/23 @ 11:57 by Denis Shepherd MD) Annual physical exam (Acute) HPV (human papilloma virus) infection (Acute) Well woman exam (Acute) Diabetic neuropathy (Acute) Eczema (Acute) Arthritis of carpometacarpal (CMC) joint of left thumb (Acute) Wrist stiffness (Acute) ASCUS with positive high risk HPV cervical (Acute) Breast calcification, right (Acute) Type 2 diabetes mellitus with hyperglycemia (Acute) Hypercholesterolemia (Acute) Annual physical exam (Acute) Hermansky-Pudlak syndrome (Acute) Overweight (BMI 25.0-29.9) (Acute) Dysplasia of cervix, low grade (KELIN 1) (Acute) Past Medical History Medical History Annual physical exam Pre-op examination Encounter for screening colonoscopy Palpitations Fibroadenoma of breast Skin tag Well woman exam Vision blurred Varicose vein of leg Diverticular disease Left ulnar fracture GERD (gastroesophageal reflux disease) Hermansky-Pudlak syndrome Vitamin D deficiency Anxiety Overweight (BMI 25.0-29.9) Dysplasia of cervix, low grade (KELIN 1) Family History Family History Sister Uterine cancer Surgical History Surgical History History of cholecystectomy H/O LEEP Social History Social History Housing: Apartment Alcohol intake: never Patient Tobacco Use Status: Never used Tobacco e-Cigarette/Vaping Use: Never Used Second Hand Smoke Exposure: No Are you DNR?: No Advance Directives: No Advance Directives Information Provided: Yes Nutrition Risks: No Nutritional Risk Patient : No service: No Current occupational status: employed 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 Gender identity: Female Cognitive needs: No Hearing needs: No Vision needs: No Meds Allergies Allergy/AdvReac Type Severity Reaction Status Date / Time No Known Allergies [NKA] Allergy Mild NOT Verified 05/23/23 11:32 APPLICABLE Home Medications Medication Instructions Recorded Confirmed Last Taken Type cholecalciferol (vitamin D3) 10 10 mcg PO DAILY 07/05/20 06/11/23 06/09/23 History mcg (400 unit) capsule ascorbate calcium (vitamin C) 500 500 mg PO DAILY 05/23/23 06/11/23 06/09/23 History mg tablet Exam Pertinent Lab Results Pertinent Lab Results: Laboratory Tests 11/15/22 11/15/22 03/06/23 08:55 08:55 12:35 WBC 6.4 Hgb 12.4 Hct 38.7 Plt Count 290 Sodium 136 Potassium 4.0 Chloride 105 Carbon Dioxide BUN 15 Creatinine 03/06/23 12:35 WBC Hgb Hct Plt Count Sodium Potassium Chloride Carbon Dioxide 21 L BUN Creatinine 0.79 Assessment and Plan Assessment Anesthesia Assessment: Chart Reviewed Documented by User: Ciara Coreas MD 06/11/23 14:15 [facility] Past Medical History Medical History Annual physical exam Pre-op examination Encounter for screening colonoscopy Palpitations Fibroadenoma of breast Skin tag Well woman exam Vision blurred Varicose vein of leg Diverticular disease Left ulnar fracture GERD (gastroesophageal reflux disease) Hermansky-Pudlak syndrome Vitamin D deficiency Anxiety Overweight (BMI 25.0-29.9) Dysplasia of cervix, low grade (KELIN 1) Family History Family History Sister Uterine cancer Surgical History Surgical History History of cholecystectomy H/O LEEP History of Problems with Anesthesia: No Social History Social History Housing: Apartment Alcohol intake: never Patient Tobacco Use Status: Never used Tobacco e-Cigarette/Vaping Use: Never Used Second Hand Smoke Exposure: No Are you DNR?: No Advance Directives: No Advance Directives Information Provided: Yes Nutrition Risks: No Nutritional Risk Patient : No service: No Current occupational status: employed 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 Gender identity: Female Cognitive needs: No Hearing needs: No Vision needs: No Meds Allergies Allergy/AdvReac Type Severity Reaction Status Date / Time No Known Allergies [NKA] Allergy Mild NOT Verified 05/23/23 11:32 APPLICABLE Home Medications Medication Instructions Recorded Confirmed Last Taken Type cholecalciferol (vitamin D3) 10 10 mcg PO DAILY 07/05/20 06/11/23 06/09/23 History mcg (400 unit) capsule ascorbate calcium (vitamin C) 500 500 mg PO DAILY 05/23/23 06/11/23 06/09/23 History mg tablet Exam Airway Mallampati Class: II TM Dist: >3cm Neck ROM: Full Loose/Missing/Broken Teeth: No Heart: RRR Lungs: CTA Assessment and Plan Assessment Anesthesia Assessment: Anesthesia Plan Discussed Final Anesthetic Review History of Problems with Anesthesia: No NPO: Yes ASA Class: II Final Preanesthetic Review: Meds/Allgs Chart Reviewed, Consent Obtained/Reviewed and Anes Risks/Benef Reviewed Patient Risk: Low Procedure Risk: Low Anesthetic Plan Anesthetic Plan: MAC: Disposition: Standard PACU
[2023-06-11 13:20] VITALS: BP 129/76; PULSE 83; RESP 20; TEMP 36.8; O2SAT 97
[2023-06-11 13:21] VITALS: BMI 25.5
--- NOTE | 2023-06-11 13:25 | MHC.SHP ---
Pre-Procedural Eval Section A Date of Service: 06/11/23 The patient is an INPATIENT: No The History & Physical has been completed within 30 days and I have reviewed it.: No Section B Chief Complaint: Colon cancer screening Relevant Family History (Specify if Yes): No Relevant Social History: None Present Medications: see Short Stay Collaborative assessment Medical History: Significant History (Diverticular disease Dysplasia of cervix, low grade (KELIN 1) Fibroadenoma of breast GERD (gastroesophageal reflux disease) Hermansky-Pudlak syndrome Left ulnar fracture Overweight (BMI 25.0-29.9) Skin tag Varicose vein of leg Vision blurred Vitamin D deficiency) History of Previous Operations: Relevant previous surgery/procedure and date(s) (H/O LEEP History of cholecystectomy) Allergies: Allergies Allergy/AdvReac Type Severity Reaction Status Date / Time No Known Allergies [NKA] Allergy Mild NOT Verified 05/23/23 11:32 APPLICABLE Review of Systems Sugical H&P ROS: Negative: Constitution, Cardiovascular, Respiratory and Gastrointestinal Exam Surgical H&P Exam: Normal: Heart, Normal: Lungs, Normal: Extremities and Normal: Abdomen Plan Diagnosis/Plan: Unchanged I have reviewed the history and physical and performed a pertinent physical examination on my patient. No changes have occurred unless specified. Time Spent With Patient Time: Total time managing care of this patient today ____ minutes.
--- NOTE | 2023-06-11 13:28 | PC.NURSE ---
pt sts drank 4ounces of water at 1100
--- NOTE | 2023-06-11 14:21 | W.PM.OPN ---
Operative Note Operative Note Date of Service: 06/11/23 Narrative: COLONOSCOPY TILL CECUM Pre-op diagnosis: Colon cancer screening Post-op diagnosis:? Diverticulosis, hemorrhoids Endoscopist:? Brenda Rice MD Anesthesia:?MAC Consent: Indications for the procedure and potential complications of bleeding, perforation, reaction to medications and missed diagnosis were discussed with the patient and informed consent was obtained. Instrument: Olympus PCF H 190 L variable stiffness pediatric colonoscope Monitoring: Vital signs and clinical assessment, intermittent blood pressure monitoring, continuous EKG monitoring, Pulse oximetry and Carbon Dioxide monitoring were done throughout the procedure. Please see anesthesia flowsheet. Colon withdrawl time was 18 minutes. Procedure: The patient was placed in the left lateral decubitis position and pre-procedure medications were administered. After a digital rectal examination of the ano-rectum, the video colonoscope was inserted into the rectum and advanced through the colon to the cecum. The colonoscope was slowly withdrawn in a retrograde panoramic fashion and the colon mucosa was carefully examined including a retroflexed view of the rectum. Findings and interventions are described below. Procedure Difficulty: Without difficulty Findings: Terminal Ileum: Not evaluated Cecum: Normal Ascending Colon: Normal Transverse Colon: Normal Descending Colon: Moderate diverticulosis Sigmoid Colon: Moderate diverticulosis Rectum: Normal Ano-rectum: Moderate internal hemorrhoids Colon preparation: Good after copious irrigation Dickens Bowel Preparation Scale Right colon; 2 Transverse colon: 2 Left colon; 2 (0 = Unprepared colon segment with mucosa not seen due to solid stool that cannot be cleared. 1 = Portion of mucosa of the colon segment seen, but other areas of the colon segment not well seen due to staining, residual stool and/or opaque liquid. 2 = Minor amount of residual staining, small fragments of stool and/or opaque liquid, but mucosa of colon segment seen well. 3 = Entire mucosa of colon segment seen well with no residual staining, small fragments of stool or opaque liquid) Impression and Post Procedure Diagnosis: Colonoscopy Findings: No polyps were detected Moderate diverticulosis seen in the left colon Moderate hemorrhoids on retroflexed exam. Plan: Patient has an appointment on 07/04/23 in the GI Clinic with Samira Lechuga NP. Repeat Colonoscopy in 10 years. Above findings were reviewed with the patient and diverticulosis handout was given in the discharge area
[2023-06-11 15:08] VITALS: BP 96/63; PULSE 78; RESP 12; TEMP 36.4; O2SAT 98
[2023-06-11 15:23] VITALS: BP 106/72; PULSE 75; RESP 16; O2SAT 99
--- NOTE | 2023-06-11 15:37 | HO.POSTANES ---
Post Anesthesia Evaluation Post Anesthesia Evaluation Date of Service: 06/11/23 Vital Signs: Vital Signs Temp Pulse Resp BP Pulse Ox O2 Del Method 06/11/23 15:23 75 16 106/72 99 Room Air 06/11/23 15:08 97.6 F 78 12 96/63 98 Room Air 06/11/23 13:20 98.3 F 83 20 129/76 97 Room Air Anesthesia: Monitored Mental Status: Awake Pain Control: Satisfactory Nausea/Vomiting: None Hydration: Adequate Anesthesia-Related Issues: No Anes. Related Issues
[2023-06-11 15:38] VITALS: BP 129/81; PULSE 73; RESP 16; TEMP 36.6; O2SAT 98
== END 2023-06-11 16:02 | disposition home or self-care (01) ==
PROVIDERS: PCP Internal Medicine; Visit Provider Internal Medicine Gastroenterology
PROC: 0DJD8ZZ Inspection of Lower Intestinal Tract, Via Natural or Artificial Opening Endoscopic (ICD-10-PCS; CPT 45378; principal; 2023-06-11 14:30)
DX: Z12.11 Encounter for screening for malignant neoplasm of colon (principal); K57.30 Diverticulosis of large intestine without perforation or abscess without bleeding; K64.8 Other hemorrhoids; K21.9 Gastro-esophageal reflux disease without esophagitis; D24.9 Benign neoplasm of unspecified breast; N87.0 Mild cervical dysplasia; E55.9 Vitamin D deficiency, unspecified; E70.331 Hermansky-Pudlak syndrome; R00.2 Palpitations; Z90.49 Acquired absence of other specified parts of digestive tract; I83.10 Varicose veins of unspecified lower extremity with inflammation; E66.3 Overweight; Z68.26 Body mass index [BMI] 26.0-26.9, adult; Z79.899 Other long term (current) drug therapy
CPT/HCPCS: 45378; 81025; 82947; J2704

== ENCOUNTER → 2023-06-11 12:42 | Outpatient (BNV) | payer OTHER, SELFPAY | PROVIDERS: PCP Internal Medicine; Visit Provider Internal Medicine Gastroenterology | DX: Z12.11 Encounter for screening for malignant neoplasm of colon (principal); K57.30 Diverticulosis of large intestine without perforation or abscess without bleeding | CPT/HCPCS: 45378 ==

== ENCOUNTER 2023-07-18 13:05 | Outpatient (AMB) | payer OTHER, SELFPAY ==
--- NOTE | 2023-07-18 13:09 | MHC.OFFVIS ---
Intake Vital Signs 07/18/23 13:11 Height 5 ft 7 in Weight 154 lb BMI 24.1 BP 121/73 Blood Pressure Location Lt brachial Position Sitting Pulse 78 Intake Visit Reasons: s/P Raccoon screening; Dr. Rice Intake Note: Patient follow up for Colonoscopy result Patient denies any GI issues. Flash Welder Required: Yes Flash Welder Name: [facility] Interpeter Accompanied by: Self / Same As Patient Allergies No Known Allergies [NKA] Allergy (Mild, Verified 07/18/23 13:09) NOT APPLICABLE HPI s/P Raccoon screening; Dr. Rice HPI Details Assessment & Plan (1) Pre-op examination: Code(s): Z01.818 - Encounter for other preprocedural examination Plan: [place] #Ximena, Live She had a prior colonoscopy with Dr. Youngblood that was negative in 2018. She denies any bowel or upper GI problems. There are no prior problems with anesthesia or sedation. She denies any respiratory or cardiac problems and she has had a negative stress test. NO ID problems. There is no known FHX of crc or polyps. Medications: New peg 3350-electroly noble 236-22.74-6.74 -5.86 gram (Golyt jc) until feca l effluent is jorge r; do not exceed a total volume of 2 ,000 mL 240 mL PO Q10M 4,0 00 mL 0RF 1 day Z12.11 - Encounter for screening for malignant neoplas m of colon : COLONOSCOPY 06/11/23 Findings: Terminal Ileum: Not evaluated Cecum: Normal Ascending Colon: Normal Transverse Colon: Normal Descending Colon: Moderate diverticulosis Sigmoid Colon: Moderate diverticulosis Rectum: Normal Ano-rectum: Moderate internal hemorrhoids Impression and Post Procedure Diagnosis: Colonoscopy Findings: No polyps were detected Moderate diverticulosis seen in the left colon Moderate hemorrhoids on retroflexed exam. Plan: Patient has an appointment on 07/04/23 in the GI Clinic with Samira Lechuga NP. Repeat Colonoscopy in 10 years. TODAY'S VISIT She is agreeable to a 10 year follow up. The procedure was well tolerated. The results were explained and the patient is agreeable to the follow-up interval as stated. The bowel pattern has returned to normal. Education was provided to tell any 1st degree relatives about their findings to be sure that they are screened by age 45. Educated that they will be put on a recall list when it is time for their repeat scope but should they move out of state or away from the hospital they will need to remember along with their primary to repeat the procedure in a timely fashion to avoid any adverse complications. FORMERLY [facility], [facility] Medical History (Updated 07/18/23 @ 13:25 by IVY Armenta) Encounter for screening colonoscopy Annual physical exam Pre-op examination Palpitations Fibroadenoma of breast Skin tag Well woman exam Vision blurred Varicose vein of leg Diverticular disease Left ulnar fracture GERD (gastroesophageal reflux disease) Hermansky-Pudlak syndrome Vitamin D deficiency Anxiety Overweight (BMI 25.0-29.9) Dysplasia of cervix, low grade (KELIN 1) Surgical History History of cholecystectomy H/O LEEP Family History Sister Uterine cancer Social History Housing: Apartment Alcohol intake: never Patient Tobacco Use Status: Never used Tobacco e-Cigarette/Vaping Use: Never Used Second Hand Smoke Exposure: No service: No Current occupational status: employed 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 Gender identity: Female Cognitive needs: No Hearing needs: No Vision needs: No Female Reproductive History Menstrual Age of Menarche: 11 Review of Systems Const Denies fatigue, Denies fever(s), Denies night sweats, Denies poor appetite and Denies weight loss ENT Reports Normal hearing present, Denies dental pain, Denies dysphagia, Denies hearing loss, Denies mouth pain, Denies odynophagia, Denies throat swelling, Denies tongue swelling and Reports other (Dentition adequate) Card Reports no additional complaints Resp Reports no additional complaints GI Details: Denies abdominal pain, Denies melena, Denies bloating, Denies hematochezia, Denies constipation, Denies GI cramping, Denies dysphagia, Denies excessive flatus, Denies early satiety, Denies heartburn, Denies diarrhea, Denies nausea, Denies odynophagia, Denies vomiting and Denies hematemesis Skin/Breast Denies pruritus, Denies lesions, Denies rash and Denies jaundice Neuro Reports Normal hearing present and Denies Abnormal speech present Endo Denies fatigue Aller/Immun Denies throat swelling and Denies tongue swelling Physical Exam Vital Signs: Last Vital Signs Pulse 78 07/18/23 13:11 BP 121/73 07/18/23 13:11 BMI result Body Mass Index 24.1 Const General: cooperative, no acute distress, well developed and well groomed Nutritional Appearance: average body habitus and well nourished Orientation/consciousness: oriented to person, oriented to place and oriented to time Limitations: language barrier HEENT Head: Yes normocephalic and Yes atraumatic Eyes General: appearance normal, both eyes and all related structures Pupils: Equal, round and reactive pupils present Neck Neck: Yes normal visual inspection and Yes no lymphadenopathy Thyroid: Thyroid normal Resp Effort & Inspection: normal respiratory effort and able to speak in complete sentences Auscultation: clear to auscultation bilaterally Cardio Rate: regular rate Rhythm: regular rhythm Heart sounds: Normal, physiologic split S2 sound present Peripheral pulses: radial pulses present and posterior tibial pulses present GI Inspection: No distended and No Abdominal panniculus present Palpation (GI): Soft to palpation, nontender, no guarding, not rigid and No hepatosplenomegaly present Percussion: Yes normal to percussion Auscultation: normal bowel sounds Rectal Exam - Female: deferred Skin General skin exam: no rashes or lesions noted, turgor normal, skin not dry, no jaundice, No spider nevi and no striae Rashes: no rashes Nails: normal Neuro General: oriented to person, oriented to place and oriented to time Cranial nerves: Yes Equal, round and reactive pupils present and Yes Normal hearing present Speech: No Abnormal speech present Extrem General: Yes normal to inspection, No clubbing, No cyanosis and No edema Psych Appearance: grossly normal and well kempt Mental Status: mental status grossly normal Speech and movement: Normal speech and movement present Affect: normal affect Attitude: cooperative Thought process: Normal thought process present and not confabulating Thought content: Normal thought content present Insight: Limited insight present (Psych) Judgement: Limited judgement present (Psych) Assessment & Plan Assessment & Plan (1) Encounter for screening colonoscopy: Code(s): Z12.11 - Encounter for screening for malignant neoplasm of colon Plan She is agreeable to a 10 year follow up. The procedure was well tolerated. The results were explained and the patient is agreeable to the follow-up interval as stated. The bowel pattern has returned to normal. Education was provided to tell any 1st degree relatives about their findings to be sure that they are screened by age 45. Educated that they will be put on a recall list when it is time for their repeat scope but should they move out of state or away from the hospital they will need to remember along with their primary to repeat the procedure in a timely fashion to avoid any adverse complications. Coding Level of Care Code Est Pt Level 3 (30209) Diagnoses Encounter for screening colonoscopy Z12.11
[2023-07-18 13:11] VITALS: BP 121/73; PULSE 78; BMI 24.1
== END 2023-07-18 13:29 | disposition home or self-care (01) ==
PROVIDERS: PCP Internal Medicine; Visit Provider Nurse Practitioner
DX: Z12.11 Encounter for screening for malignant neoplasm of colon (principal); Z01.818 Encounter for other preprocedural examination
CPT/HCPCS: 99213

== ENCOUNTER → 2023-07-18 13:05 | Outpatient (BNVA) | payer OTHER, SELFPAY | PROVIDERS: PCP Internal Medicine; Visit Provider Nurse Practitioner | DX: Z12.11 Encounter for screening for malignant neoplasm of colon (principal) | CPT/HCPCS: 99212 ==

== ENCOUNTER 2023-08-13 12:29 | Outpatient (REF) | payer OTHER, SELFPAY ==
[2023-08-13 13:53] LABS: Appearance Urine Clear; Color Urine Yellow; Glucose Urine UA Negative (Negative); Leukocyte Esterase Urine Negative (Negative); Nitrite Urine Negative (Negative); Urine Blood Negative (Negative); Urine Ketones Negative (Negative); Urine Protein Negative (Neg-Trace)
== END 2023-08-13 12:30 | disposition home or self-care (01) ==
LOC: HO.LAB 12:29
PROVIDERS: PCP Internal Medicine; Visit Provider Internal Medicine
DX: R39.9 Unspecified symptoms and signs involving the genitourinary system (principal)
CPT/HCPCS: 81003

== ENCOUNTER 2023-08-27 12:46 | Outpatient (AMB) | payer OTHER, SELFPAY ==
[2023-08-27 12:49] VITALS: BP 122/78; PULSE 97; O2SAT 99; BMI 24.6
--- NOTE | 2023-08-27 12:49 | A.OFFPC_ITS ---
Vital Signs 08/27/23 12:49 Height 5 ft 7 in Weight 157 lb 0.8 oz BMI 24.6 BP 122/78 Blood Pressure Location Lt brachial Position Sitting Pulse 97 Pulse Source Pulse Oximeter Pulse Oximetry (%) 99 Oxygen Delivery Method Room Air Intake Visit Reasons: 3 month f/u Intake Note: Patient is here to follow up on 3 months Allergies No Known Allergies [NKA] Allergy (Mild, Verified 08/27/23 12:50) NOT APPLICABLE Tobacco use date assessed: 08/27/23 Dental Screening Dental Screen Date: 08/27/23 HPI 3 month f/u HPI Details 47-year-old female with a history of thao betes mellitus hypercholesterolemia last seen in May 2023 comes in for follow-up. Mammogram is due, colonoscopy is up-to-date. June 2023 negative and 10 years blood work complete done in November although last cholesterol test was done in March 2023 [facility] Medical History (Updated 08/27/23 @ 13:05 by Denis Shepherd MD) Encounter for screening colonoscopy Annual physical exam Pre-op examination Palpitations Fibroadenoma of breast Skin tag Well woman exam Vision blurred Varicose vein of leg Diverticular disease Left ulnar fracture GERD (gastroesophageal reflux disease) Hermansky-Pudlak syndrome Vitamin D deficiency Anxiety Overweight (BMI 25.0-29.9) Dysplasia of cervix, low grade (KELIN 1) Surgical History History of cholecystectomy H/O LEEP Family History Sister Uterine cancer Social History Housing: Apartment Alcohol intake: never Patient Tobacco Use Status: Never used Tobacco e-Cigarette/Vaping Use: Never Used Second Hand Smoke Exposure: No service: No Current occupational status: employed 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 1. Little interest or pleasure in doing things: not at all 2. Feeling down, depressed, or hopeless: not at all 3. Trouble falling or staying asleep, or sleeping too much: not at all 4. Feeling tired or having little energy: not at all 5. Poor appetite or overeating: not at all 6. Feeling bad about yourself - or that you are a failure or have let yourself or your family down: not at all 7. Trouble concentrating on things, such as reading the newspaper or watching television: not at all 8. Moving or speaking so slowly that other people could have noticed. Or the opposite - being so fidgety or restless that you have been moving around a lot more than usual: not at all 9. Thoughts that you would be better off or of hurting yourself in some way: not at all Total score: 0 Depression Screening Interpretation: Negative Depression Screening Done: Yes Source: Developed by Drs. Johnny Murphy, Antionette Alexander, Guy Cortes and colleagues, with an educational carla from [employer]. Thrive Questionnaire Date Thrive assessed: 08/27/23 AUDIT C Alcohol Use Questionnaire (AUDIT-C) 1. How often do you have a drink containing alcohol?: Monthly or less 2. How many drinks containing alcohol do you have on a typical day when you are drinking?: 1 or 2 3. How often do you have six or more drinks on one occasion?: Never Total Score: 1 LUIS-7 AMB Questionnaire LUIS-7 Date LUIS - 7 assessed: 08/27/23 Source: Developed by Drs. Johnny Murphy, Antionette Alexander, Guy Cortes and colleagues, with an educational carla from [employer]. Physical exam (Primary Care) Vital Signs: Last Vital Signs Pulse 97 08/27/23 12:49 BP 122/78 08/27/23 12:49 Pulse Ox 99 08/27/23 12:49 Oxygen Delivery Method Room Air 08/27/23 12:49 BMI result Body Mass Index 24.6 Tobacco/Smoking Status: Tobacco use Status Tobacco use date assessed 08/27/23 08/27/23 12:51 Patient Tobacco Use Status Never used Tobacco 08/27/23 12:49 e-Cigarette/Vaping Use Never Used 08/27/23 12:49 PHQ-9: PHQ-9 Score PHQ-9: Total score 0 08/27/23 12:51 Depression Screening Interpretation: Negative Thrive Assessment: Date of Thrive Assessment Date Thrive assessed 08/27/23 08/27/23 12:51 Const General: alert; No acute distress Eyes Conjunctivae: conjunctivae normal Resp Auscultation: clear to auscultation bilaterally Cardio Rate: regular rate Rhythm: regular rhythm GI Inspection: Yes normal to inspection Extrem General: Yes normal to inspection and No edema Results AMB Hemoglobin A1c AMB Hemoglobin A1c 6.1 % Last Edit by HAN Pak on 08/27/23 13:06 Assessment and Plan Assessment & Plan (1) Type 2 diabetes mellitus with hyperglycemia: Comment: Dr. Noonan. Eye and lasik Code(s): E11.65 - Type 2 diabetes mellitus with hyperglycemia Plan: Decrease the amount of carbohydrate intake, pasta, bread, rice and potatoes are all sugar and that is aside from all the sweet stuff, remember that fruits are good but they are Sweet also. Hemoglobin A1c goal of less than 6.5. Patient on metformin 1000 mg twice a day (2) Breast cancer screening by mammogram: Code(s): Z12.31 - Encounter for screening mammogram for malignant neoplasm of breast Plan: Reminded about mammogram (3) Hypercholesterolemia: Code(s): E78.00 - Pure hypercholesterolemia, unspecified Plan: Avoid fried foods, chicken skin, eggs, butter margarine, pastries and meat. Be it pork or beef they have a lot of cholesterol LDL goal of less than 100 and triglyceride of less than 150 presently on simvastatin 10 mg at bedtime (4) ASCUS with positive high risk HPV cervical: Comment: Colpo biopsy/ECC negative Code(s): R87.610 - Atypical squamous cells of undetermined significance on cytologic smear of cervix (ASC-US); R87.810 - Cervical high risk human papillomavirus (HPV) DNA test positive Plan: Reminded about follow-up with gynecology Orders: Orders AMB Hemoglobin A1c Today E11.65 - Type 2 diabetes mellitus with hyperglycemia Comprehensive Met. Panel 3 Months E11.65 - Type 2 diabetes mellitus with hyperglycemia Microalbumin, Random (w Creat) 3 Months E11.65 - Type 2 diabetes mellitus with hyperglycemia Thyroid Stimulating Hormone 3 Months E11.65 - Type 2 diabetes mellitus with hyperglycemia Vitamin D 25-OH Total 3 Months E11.65 - Type 2 diabetes mellitus with hyperglycemia Complete Blood Count Auto Diff 3 Months E11.65 - Type 2 diabetes mellitus with hyperglycemia Creatinine Urine 3 Months E11.65 - Type 2 diabetes mellitus with hyperglycemia Lipid Panel 3 Months E11.65 - Type 2 diabetes mellitus with hyperglycemia, E78.00 - Pure hypercholesterolemia, unspecified Vitamin B12 and Folate 3 Months E11.65 - Type 2 diabetes mellitus with hyperglycemia Free T4 (Free Thyroxine) 3 Months E11.65 - Type 2 diabetes mellitus with hyperglycemia Hemoglobin A1c 3 Months E11.65 - Type 2 diabetes mellitus with hyperglycemia Coding Level of Care Code Est Pt Level 4 (60016) Diagnoses Type 2 diabetes mellitus with hyperglycemia E11. Breast cancer screening by mammogram Z12.31 Hypercholesterolemia E78.00 ASCUS with positive high risk HPV cervical R87.610; R87.810
== END 2023-08-27 13:14 | disposition home or self-care (01) ==
PROVIDERS: PCP Internal Medicine; Visit Provider Internal Medicine
DX: E11.65 Type 2 diabetes mellitus with hyperglycemia (principal); Z12.31 Encounter for screening mammogram for malignant neoplasm of breast; E78.00 Pure hypercholesterolemia, unspecified; R87.610 Atypical squamous cells of undetermined significance on cytologic smear of cervix (ASC-US); R87.810 Cervical high risk human papillomavirus (HPV) DNA test positive
CPT/HCPCS: 83036; 99214

== ENCOUNTER 2023-09-25 12:36 | Outpatient (REF) | payer OTHER, SELFPAY ==
--- NOTE | ~2023-09-25 | MM_ITS ---
EXAMINATION: MM DIAGNOSTIC DIGITAL BREAST TOMOSYNTHESIS, BILATERAL CLINICAL INFORMATION: 1 year follow-up for right breast calcifications lower inner aspect, posterior one third, associated with a previously biopsied fibroadenoma. This will establish a two-year stability if unchanged or benign. Patient also here for bilateral screening. Prior history benign right ultrasound-guided breast biopsy 05/09/2017 yielding fibroadenoma. COMPARISON: Mammography: 08/30/2022, 02/23/2022, 07/26/2021, 07/12/2021 (BI-RADS 0), 06/07/2020, 06/02/2019, 05/29/2018. Ultrasound-guided right breast biopsy and postbiopsy mammography 05/09/2017. TECHNIQUE: Digital breast tomosynthesis is performed in both the craniocaudal and mediolateral oblique views along with computer-aided detection (CAD). Synthesized 2D images are generated from the tomosynthesis. In addition, 2-D spot magnification right CC and LM views were also included of the right breast. FINDINGS: The breasts are extremely dense, which lowers the sensitivity of mammography (ACR BI-RADS breast composition Category d). Calcifications associated with the biopsied fibroadenoma have mildly increased in number, however more importantly have become quite coarse, in a classically benign morphology, related to degenerating fibroadenoma. These are benign and no further follow-up is recommended. There are no suspicious masses, suspicious grouped calcifications, or areas of architectural distortion in either breast. The extremely dense and nodular parenchymal pattern is stable from prior exams dating back to 2018. There are no skin or axillary abnormalities. MM/MM tomosynthesis diagnostic BI IMPRESSION: -No findings suspicious for malignancy in either breast. -Calcifications associated with biopsied fibroadenoma in the posterior right inferior medial breast are classically benign in appearance, and have been followed over two-year period. This establishes benignity. No further follow-up is warranted. -Recommend the patient return to routine annual screening to include both breasts. ASSESSMENT: BI-RADS BI-RADS 2 - Benign Findings RECOMMENDATION: 1 year F/U Results were provided to the patient at time of visit by the technologist. This patient's information was entered into a reminder system with a target due date for their next mammogram.
== END 2023-09-25 12:37 | disposition home or self-care (01) ==
LOC: HO.MAMMO 12:36
PROVIDERS: PCP Internal Medicine; Visit Provider Internal Medicine
DX: R92.1 Mammographic calcification found on diagnostic imaging of breast (principal)
CPT/HCPCS: 77062; 77066

== ENCOUNTER → 2023-09-25 13:00 | Outpatient (BNV) | payer OTHER, SELFPAY | PROVIDERS: PCP Internal Medicine; Visit Provider Radiology Diagnostic Radiology | DX: R92.1 Mammographic calcification found on diagnostic imaging of breast (principal) | CPT/HCPCS: 77062; 77066 ==

== ENCOUNTER → 2023-10-30 14:50 | Outpatient (RCR) | payer OTHER, SELFPAY ==
--- NOTE | 2021-10-10 11:41 | MHC.OT.OEV ---
[address] [phone] F: [phone] Occupational Therapy Evaluation Diagnosis: Left thumb CMC OA Date of Onset: 06/06/21 Date of Surgery: Attending Provider: Letty Dunn PA-C Prescribed Treatment: Eval and treat MD Follow Up Appointment: History of Current Condition: Pt reports a 4 mo ho of worsening left thumb pain with carrying/transfer her 100 lb disabled son bed to Significant Medical History: T2 DM Precautions/Contraindications: DM Patient Goals: Improve pain. Hand Dominance: Right Observations: Wearing Cool Comfort TS QuickDASH Score: 25 Prior Level of Function and Occupation Self Care, Employment, Leisure: Indep in all areas Caring for disabled 12 yo son..100 lb physical assist. 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 15 hrs wk Enjoys cleaning and TV Living Situation, Family and/or Social Support: See above Current Level of Function and Occupation Self Care, Employment, Leisure: Pain with lifting , personal care of her son, tight jars. 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 Alleviating Factors: Using splint with work, and helping her son Skin and Soft Tissue Assessment Skin and Soft Tissue: Swelling Comments: Left thenar ms and index finger Nerve assessment Ulnar Nerve: Median Nerve: Radial Nerve: Comments: Sensory Assessment Temperature: Light Touch: WNL Proprioception: Vibration: Comments: Edema Assessment Upper Extremity: Left Impaired Lower Extremity: Comments: Mild left radial hand Dexterity Assessment Dexterity: WFL Comments: Special Tests Comments: Phalens neg AROM(PROM) Strength Cervical Cervical Flexion: Cervical Extension: Cervical Lateral Flexion: Cervical Rotation: Comments: Shoulder Flexion: Extension: Abduction: Internal Rotation: External Rotation: Comments: Flexion: Extension: Abduction: Internal Rotation: External Rotation: Comments: Elbow Flexion: Extension: Pronation: Supination: Comments: Flexion: Extension: Pronation: Supination: Comments: Wrist Flexion: Extension: Ulnar Deviation: Radial Deviation: Comments: Flexion: Extension: Ulnar Deviation: Radial Deviation: Comments: Thumb Thumb CMC Flexion: Thumb MCP Flexion: Thumb IP Flexion: Radial Abduction: Palmar Abduction: [place] ([place] 0-10): R 10 L 10 Comments: AROM WNL. Left thumb pain at end ranges Digits Index MCP: PIP: DIP: Long MCP: PIP: DIP: Ring MCP: PIP: DIP: Small MCP: PIP: DIP: Comments: WNL Gross Grasp: Lateral Pinch: Two-Point Pinch: Three-Jaw Jose: Comments: Deferred Patient Education Primary Language: Robotic Machine Operator Required: No Current Knowledge: Minimal, needs reinforcement Teaching Method: Demonstration Verbal Education Needs Identified on Evaluation: ADL's Disease Information Exercise How did patient/family demonstrate learning? Patient demonstrates Patient verbalizes Barriers to Learning: None Readiness for Learning: Accepting Who was educated? Patient Comments: Plan of Care Assessment: Pt is a 45 yo female with worsening left thumb pain over the past 4 months primarily during personal care for her disabled 12 yo son with transfers and dressing. S+S are consistent with her dx of CMC jt OA. She is able to complete most other daily activities with little difficulty with use of the Cool Comfort thumb spica issued by [facility] orthopedics. Pt will benefit in OT to address pain for improved left hand function and slow the progression of left thumb OA jt changes. STG Duration: 2 wks Short Term Goals: Report Jt protection tech for left thumb OA Demo indep with HEP and jt protection tech Indep in tech for pain management Dec pain to <5/10 with protection tech as needed LTG Duration: 4 wks Half-Way Goals: Dec left thumb pain to occasional with use of jt protection as needed Demo indep with thenar ms strengthening for jt stabilization Indep in self management of CMCj OA Frequency and Duration: The patient will be seen 2x wk x 2 wks Treatment Plan: Therapeutic Exercise Therapeutic Activity Home Exercise Program Splinting Patient Education ADL Training Ultrasound Paraffin Fluidotherapy MHP Kinesiotaping Electronically Signed By: Annie Mendoza OT CHT CLT Reviewed/agree with student documentation: N/A Therapist: Please sign and return to therapist, Thank you for your referral.
--- NOTE | 2021-12-26 13:12 | MHC.OT.DC ---
[address] [phone] F: [phone] Occupational Therapy Discharge Note Provider: Letty Dunn PA-C Diagnosis: Left thumb CMC OA Date of Surgery: Date of Evaluation: 10/10/21 Date of Discharge: 12/26/21 Treatments to Date: 10 Cancellations to Date: No Shows to Date: Discharge Status: Achieved Goals Improved Function Independent with HEP Discharge Summary: Pt. reports she has remained pain free the past 2 weeks except when she lifts her son. 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 She is indep working on strengthening thumb op to avoid medial MCP jt and IPj pressure with pinch Goals met Electronically Signed By: Annie Mendoza OT CHT CLT Reviewed/agree with student documentation: N/A Therapist: Please Sign and return to therapist, thank you for your referral.
== END | disposition home or self-care (01) ==
LOC: HO.OT 10-10 10:23
PROVIDERS: PCP Internal Medicine; Visit Provider Physician Assistant
DX: M18.12 Unilateral primary osteoarthritis of first carpometacarpal joint, left hand (principal); M25.632 Stiffness of left wrist, not elsewhere classified
CPT/HCPCS: 29125; 29130; 97035; 97110; 97140; 97165; 97760

== ENCOUNTER 2023-12-20 07:47 | Outpatient (REF) | payer OTHER, SELFPAY ==
[2023-12-20 08:01] LABS: MANUAL DIFF FLAG NO
[2023-12-20 08:17] LABS: Basophils Percent Auto 0.4 % (0-2); Eosinophils Absolute Auto 0.1 X10*3/uL (0.0-0.4); Eosinophils Percent Auto 1.5 % (0-4); Hematocrit 39.3 % (37.0-47.0); Hemoglobin 12.7 g/dl (12.0-16.0); Imm Gran Abs Auto 0.03 X10*3/uL (0.00-0.03); Imm Gran Pct Auto 0.4 % (0.0-0.4); Lymphocytes Absolute Auto 1.5 X10*3/uL (1.2-4.9); Lymphocytes Percent Auto 20.7 % (20-40); Mean Corpuscular HGB Conc 32.3 g/dl (31.0-35.0); Mean Corpuscular Hemoglobin 26.1 pg (27.0-33.0); Mean Corpuscular Volume 80.7 fL (80.0-98.0); Mean Platelet Volume 9.3 fL (9.4-12.3); Monocytes Absolute Auto 0.4 X10*3/uL (0.1-1.2); Monocytes Percent Auto 5.8 % (2-11); Neutrophils Absolute Auto 5.2 x10*3/uL (2.0-8.3); Neutrophils Percent Auto 71.2 % (45-73); Platelet Count 308 X10*3/uL (160-400); Red Blood Count 4.87 X10*6/uL (4.20-5.50); Red Cell Distribution Width 13.5 % (11.0-16.0); White Blood Count 7.3 X10*3/uL (4.8-10.8)
[2023-12-20 08:23] LABS: Estimated Average Glucose 140 mg/dL; Hemoglobin A1C 149.8187 umol/L; Hemoglobin A1c % 6.5 % (<6.0)
[2023-12-20 08:55] LABS: Alanine Aminotransferase 19 U/L (0-31); Albumin Level 4.5 g/dL (3.5-5.0); Alkaline Phosphatase 64 U/L (39-117); Anion Gap 16 (12-20); Aspartate Amino Transferase 17 U/L (5-31); Bilirubin Total 0.4 mg/dL (0.0-1.0); Blood Urea Nitrogen 12 mg/dL (9-16); Carbon Dioxide 21 mmol/L (22-29); Chloride 106 mmol/L (96-108); Cholesterol 183 mg/dL (<200); Estimated Glomerular Filt Rate > 60; Glucose Random 140 mg/dL (60-115); HDL Cholesterol 42 mg/dL (>40); LDL Cholesterol Calculated 116 mg/dL (<100); Sodium 139 mmol/L (135-145); Triglycerides 127 mg/dL (<150)
[2023-12-20 09:11] LABS: Free T4 (Free Thyroxine) 0.84 ng/dL (0.71-1.85); Thyroid Stimulating Hormone 5.34 uIU/mL (0.32-4.0); Vitamin D 25-OH Total 33.1 ng/mL (>30)
[2023-12-20 09:23] LABS: Folate 12.5 ng/mL (> or = 4.0); Vitamin B12 647 pg/mL (200-900)
[2023-12-20 13:55] LABS: Creatinine Urine 137.75 mg/dL; Microalbum/Creatinine Ratio Ur 13.7 ug/mg cr (<30)
== END 2023-12-20 07:48 | disposition home or self-care (01) ==
LOC: HO.LAB 07:47
PROVIDERS: PCP Internal Medicine; Visit Provider Internal Medicine
DX: E11.65 Type 2 diabetes mellitus with hyperglycemia (principal); E78.00 Pure hypercholesterolemia, unspecified
CPT/HCPCS: 36415; 80053; 80061; 82043; 82306; 82570; 82607; 82746; 83036; 84439; 84443; 85025

== ENCOUNTER 2023-12-21 12:45 | Outpatient (AMB) | payer OTHER, SELFPAY ==
[2023-12-21 12:48] VITALS: BP 106/72; PULSE 78; O2SAT 99; BMI 25.4
--- NOTE | 2023-12-21 12:48 | A.OFFPC_ITS ---
Vital Signs 12/21/23 12:48 Height 5 ft 7 in Weight 162 lb 0.4 oz BMI 25.4 BP 106/72 Blood Pressure Location Lt brachial Position Sitting Pulse 78 Pulse Source Pulse Oximeter Pulse Oximetry (%) 99 Oxygen Delivery Method Room Air Intake Visit Reasons: 3mth f/u Escrow Officer Required: No Allergies No Known Allergies [NKA] Allergy (Mild, Verified 12/21/23 12:49) NOT APPLICABLE Tobacco use date assessed: 08/27/23 Dental Screening Dental Screen Date: 08/27/23 HPI 3mth f/u HPI Details 48-year-old female with diabetes mellitu s controlled hypercholesterole gerson coming in for follow-up. Last seen in 08/2023. Patient's mammogram is up-to-date 09/2023 Pap smear reminded colonoscopy up-to-date June 2023. [facility] Medical History (Updated 12/21/23 @ 13:05 by Denis Shepherd MD) Breast cancer screening by mammogram Encounter for screening colonoscopy Annual physical exam Pre-op examination Palpitations Fibroadenoma of breast Skin tag Well woman exam Vision blurred Varicose vein of leg Diverticular disease Left ulnar fracture GERD (gastroesophageal reflux disease) Hermansky-Pudlak syndrome Vitamin D deficiency Anxiety Overweight (BMI 25.0-29.9) Dysplasia of cervix, low grade (KELIN 1) Surgical History History of cholecystectomy H/O LEEP Family History Sister Uterine cancer Social History Housing: Apartment Alcohol intake: never Patient Tobacco Use Status: Never used Tobacco e-Cigarette/Vaping Use: Never Used Second Hand Smoke Exposure: No service: No Current occupational status: employed 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 How often do you have a drink containing alcohol?: Monthly or less 2. How many drinks containing alcohol do you have on a typical day when you are drinking?: 1 or 2 3. How often do you have six or more drinks on one occasion?: Never Total Score: 1 LUIS-7 AMB Questionnaire LUIS-7 Date LUIS - 7 assessed: 08/27/23 Source: Developed by Drs. Johnny Murphy, Antionette Alexander, Guy Cortes and colleagues, with an educational carla from [employer]. Physical exam (Primary Care) Vital Signs: Last Vital Signs Pulse 78 12/21/23 12:48 BP 106/72 12/21/23 12:48 Pulse Ox 99 12/21/23 12:48 Oxygen Delivery Method Room Air 12/21/23 12:48 BMI result Body Mass Index 25.4 Tobacco/Smoking Status: Tobacco use Status Tobacco use date assessed 08/27/23 12/21/23 12:50 Patient Tobacco Use Status Never used Tobacco 12/21/23 12:50 e-Cigarette/Vaping Use Never Used 12/21/23 12:50 Thrive Assessment: Date of Thrive Assessment Date Thrive assessed 08/27/23 12/21/23 12:50 Const General: alert; No acute distress Eyes Conjunctivae: conjunctivae normal Resp Auscultation: clear to auscultation bilaterally Cardio Rate: regular rate Rhythm: regular rhythm GI Inspection: Yes normal to inspection Extrem General: Yes normal to inspection and No edema Assessment and Plan Assessment & Plan (1) Type 2 diabetes mellitus with hyperglycemia: Comment: Dr. Noonan. Eye and lasik Code(s): E11.65 - Type 2 diabetes mellitus with hyperglycemia Plan: Decrease the amount of carbohydrate intake, pasta, bread, rice and potatoes are all sugar and that is aside from all the sweet stuff, remember that fruits are good but they are Sweet also. Presently on metformin a 1000 mg twice a day hemoglobin A1c goal of less than 6.5. (2) Hypercholesterolemia: Code(s): E78.00 - Pure hypercholesterolemia, unspecified Plan: Avoid fried foods, chicken skin, eggs, butter margarine, pastries and meat. Be it pork or beef they have a lot of cholesterol LDL goal of less than 100 and triglyceride of less than 150 on simvastatin 10 mg once a day (3) ASCUS with positive high risk HPV cervical: Comment: Colpo biopsy/ECC negative Code(s): R87.610 - Atypical squamous cells of undetermined significance on cytologic smear of cervix (ASC-US); R87.810 - Cervical high risk human papillomavirus (HPV) DNA test positive Plan: Patient is reminded about Pap smears yearly. Orders: Orders Lipid Panel 3 Months E11.65 - Type 2 diabetes mellitus with hyperglycemia, E78.00 - Pure hypercholesterolemia, unspecified Comprehensive Met. Panel 3 Months E11.65 - Type 2 diabetes mellitus with hyperglycemia Thyroid Stimulating Hormone 3 Months R79.89 - Other specified abnormal findings of blood chemistry Hemoglobin A1c 3 Months E11.65 - Type 2 diabetes mellitus with hyperglycemia Free T4 (Free Thyroxine) 3 Months R79. - Other specified abnormal findings of blood chemistry Medications: Refilled triamcinolone acetonide 0.5% 1 appl topical BID 14 days 45 grams 0RF L30.9 - Dermatitis, unspecified simvastatin 10 mg PO BEDTIME 90 days 90 tabs 1RF E78.00 - Pure hypercholesterolemia, unspecified lisinopril 2.5 mg PO DAILY 90 days 90 tabs 2RF E11.65 - Type 2 diabetes mellitus with hyperglycemia Coding Level of Care Code Est Pt Level 4 (93252) Diagnoses Type 2 diabetes mellitus with hyperglycemia E11.65 Hypercholesterolemia E78.00 ASCUS with positive high risk HPV cervical R87.610; R87.810
== END 2023-12-21 13:33 | disposition home or self-care (01) ==
PROVIDERS: PCP Internal Medicine; Visit Provider Internal Medicine
DX: E11.65 Type 2 diabetes mellitus with hyperglycemia (principal); E78.00 Pure hypercholesterolemia, unspecified; R87.610 Atypical squamous cells of undetermined significance on cytologic smear of cervix (ASC-US); R87.810 Cervical high risk human papillomavirus (HPV) DNA test positive
CPT/HCPCS: 99214

== ENCOUNTER 2024-02-13 16:53 | Outpatient (REF) | payer OTHER, SELFPAY ==
[2024-02-13 17:39] LABS: Creatinine Urine 158.82 mg/dL
[2024-02-13 18:02] LABS: Free T4 (Free Thyroxine) 0.84 ng/dL (0.71-1.85); Thyroid Stimulating Hormone 3.68 uIU/mL (0.32-4.0)
== END 2024-02-13 16:54 | disposition home or self-care (01) ==
LOC: HO.LAB 16:53
PROVIDERS: PCP Internal Medicine; Visit Provider Internal Medicine
DX: R79.89 Other specified abnormal findings of blood chemistry (principal); E11.65 Type 2 diabetes mellitus with hyperglycemia
CPT/HCPCS: 36415; 82570; 84439; 84443

== ENCOUNTER 2024-02-14 13:35 | Outpatient (AMB) | payer OTHER, SELFPAY ==
[2024-02-14 13:41] VITALS: BP 120/72; BMI 24.4
--- NOTE | 2024-02-14 13:41 | A.OFFVIS_ITS ---
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/do not reschedule x 3 Geospatial Imagery Intelligence Analyst Required: Yes Geospatial Imagery Intelligence Analyst Language: Kitchen Hand Services: Geospatial Imagery Intelligence Analyst Present (in person) Geospatial Imagery Intelligence Analyst Name: Halima SHORT Information Interpreted: non-clinical & clinical Tire Shop Mechanic: Tire Shop Mechanic Present (Halima SHORT) Accompanied by: Self / Same As Patient Allergies No Known Allergies [NKA] Allergy (Mild, Verified 02/14/24 13:49) NOT APPLICABLE Is last menstrual period known: Yes Last menstrual period: 01/31/24 HPI Comments Details: Presenting for annual exam. No complaints. Last Pap/HPV was negative-HPV E6 E7 and 16 positive, colpo/biopsy/ECC were n egative in 10/24 Last Mammogram was BI-RADS 2 in 09/25 Last Colonoscopy was done in 06/27, the recommendation was to repeat in 10 years [facility] Medical History (Updated 02/14/24 @ 13:54 by Shay Magdaleno MD) Breast cancer screening by mammogram Encounter for screening colonoscopy Annual physical exam Pre-op examination Palpitations Fibroadenoma of breast Skin tag Well woman exam Vision blurred Varicose vein of leg Diverticular disease Left ulnar fracture GERD (gastroesophageal reflux disease) Hermansky-Pudlak syndrome Vitamin D deficiency Anxiety Overweight (BMI 25.0-29.9) Dysplasia of cervix, low grade (KELIN 1) Surgical History History of cholecystectomy H/O LEEP Family History Sister Uterine cancer Social History Housing: Apartment Alcohol intake: never Patient Tobacco Use Status: Never used Tobacco e-Cigarette/Vaping Use: Never Used Second Hand Smoke Exposure: No service: No Current occupational status: employed 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 Gender identity: Female Cognitive needs: No Hearing needs: No Vision needs: No Female Reproductive History Menstrual Age of Menarche: 11 Date of last menstrual period: 01/31/24 Total pregnancies: 5 Full term: 2 Number of Living Children: 2 Ab spontaneous: 3 Date of last pap smear: 10/10/22 History of abnormal pap smear: Yes (HPV +) Date of Mammogram: 09/25/23 Review of Systems Const All systems reviewed & are unremarkable except as noted in HPI and below Card Reports as per HPI Resp Reports as per HPI GI Reports as per HPI and Reports no additional complaints Reports as per HPI Physical Exam Vital Signs: Last Vital Signs BP 120/72 02/14/24 13:41 BMI result Body Mass Index 24.4 Const General: cooperative, healthy appearing and comfortable Chest Chest palpation & inspection: normal inspection of the chest and normal palpation of entire chest wall Breast/axilla inspection: normal inspection of the breasts and normal inspection of the axillae Breast/axilla palpation: normal palpation of the breasts, normal palpation of the axillae and no axillary lymphadenopathy Resp Effort & Inspection: normal respiratory effort Auscultation: clear to auscultation bilaterally Percussion: percussion normal Cardio Palpation: normal PMI Rate: regular rate Rhythm: regular rhythm Heart sounds: no murmurs and no rubs Peripheral pulses: Peripheral pulses 2+ throughout GI Inspection: Yes normal to inspection Palpation (GI): Soft to palpation, nontender, no guarding, not rigid and No hepatosplenomegaly present Percussion: Yes normal to percussion Auscultation: normal bowel sounds Rectal Exam - Female: deferred General: Yes bladder normal to palpation External Female Exam: No lesion Speculum Exam - Vagina: normal appearance of the vagina, normal palpation, normal vaginal discharge and not erythematous Speculum Exam - Cervix: normal appearance of the cervix and normal palpation Bimanual exam- vagina & uterus: normal bimanual exam, normal palpation, uterine size normal, bladder normal to palpation, consistency normal and normal palpation Bimanual Exam- Adnexa, other: normal adnexae, no masses and no tenderness Assessment & Plan Assessment & Plan (1) Well woman exam: Comment: History of KELIN 1 persistent status post LEEP 2020 2021 Ascus/HPV positive E6/E7/18, negative HPV 16 and 45 2022 Pap negative/HPV E6 E7 16 positive, colpo biopsy negative Code(s): Z01.419 - Encounter for gynecological examination (general) (routine) without abnormal findings Category: Medical Plan: Co testing done. Counseled the patient about the recommended dietary allowance of 1200 mg of Calcium & 600 IU of vitamin D. Instructions given the patient to schedule next screening Mammogram in 09/26. The patient was instructed to perform monthly self-breast exams and schedule annual exam in a year. All questions answered and the patient verbalized understanding. Coding Level of Care Code Est Pt Prev Care 40-64y(31620) Diagnoses Well woman exam Z01.419
== END 2024-02-14 14:10 | disposition home or self-care (01) ==
PROVIDERS: Visit Provider Obstetrics & Gynecology
DX: Z01.419 Encounter for gynecological examination (general) (routine) without abnormal findings (principal)
CPT/HCPCS: 99396

== ENCOUNTER 2024-02-14 13:35 | Outpatient (REF) | payer OTHER, SELFPAY ==
[2024-02-19 07:28] LABS: HPV mRNA E6/E7 Detected (Not Detected)
== END 2024-02-14 13:36 | disposition home or self-care (01) ==
LOC: HO.LNP 13:35
PROVIDERS: Visit Provider Obstetrics & Gynecology
DX: Z01.419 Encounter for gynecological examination (general) (routine) without abnormal findings (principal)
CPT/HCPCS: 87624; 88175; 99396

== ENCOUNTER 2024-04-14 12:38 | Outpatient (AMB) | payer OTHER, SELFPAY ==
--- NOTE | 2024-04-14 12:50 | A.OFFVIS_ITS ---
Intake Visit Reasons: Colposcopy Garage Door Opener Installer Required: Yes Garage Door Opener Installer Language: Aviation Metalsmith Services: Garage Door Opener Installer Present (in person) Garage Door Opener Installer Name: Halima SHORT Information Interpreted: non-clinical & clinical Swimming Pool Maintenance Supervisor: Swimming Pool Maintenance Supervisor Present (Christine / Halima SHORT) Allergies No Known Allergies [NKA] Allergy (Mild, Verified 04/14/24 12:58) NOT APPLICABLE HPI Comments Details: Presenting for ascus HPV E6 E7 positive PFS Medical History Breast cancer screening by mammogram Encounter for screening colonoscopy Annual physical exam Pre-op examination Palpitations Fibroadenoma of breast Skin tag Well woman exam Vision blurred Varicose vein of leg Diverticular disease Left ulnar fracture GERD (gastroesophageal reflux disease) Hermansky-Pudlak syndrome Vitamin D deficiency Anxiety Overweight (BMI 25.0-29.9) Dysplasia of cervix, low grade (KELIN 1) Surgical History History of cholecystectomy H/O LEEP Family History Sister Uterine cancer Social History Housing: Apartment Alcohol intake: never Patient Tobacco Use Status: Never used Tobacco e-Cigarette/Vaping Use: Never Used Second Hand Smoke Exposure: No service: No Current occupational status: employed 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 We thoroughly discussed the procedure itself, including its details, alternatives, and all associated risks. This included but not limited to the following complications such as bleeding, infection, and injury to the vagina, bladder, and vessels, as well as the potential need for transfusion with all its associated risks. Subsequently, the patient sign the consent. Pap smear result: LSIL. Urine test in office = Negative Procedure: During the procedure, the following steps were performed: A speculum was inserted, and acetic acid was applied. Colposcopy was conducted, allowing visualization of the transformation zone. Acetowhite lesions were identified at the 9+12+1 o'clock position. Cervical biopsies were obtained from the 9+1 o'clock position, followed by an endocervical curettage (ECC). Vaginoscopy of the upper vagina revealed no evidence of aceto-white lesions. Hemostasis was achieved using Monsel solution, and the patient tolerated the procedure well. Post-Procedure Instructions: The patient was advised to promptly contact the office or the after hours answering service or go to the emergency room if experiencing a temperature exceeding 100.4?F, abdominal pain, nausea/vomiting, or bleeding. Additionally, the patient was instructed to abstain from vaginal intercourse and bathtub use. The patient confirmed understanding of these instructions. Discharge Instructions: The patient was instructed to schedule a follow-up appointment in 2 weeks for further evaluation and management. Please note that this note was generated using a voice recognition program, and errors may have occurred during material specialist. [id number] of cervix including upper vagina with biopsy and ECC Procedure code (CPT) selection complete Assessment & Plan Assessment & Plan (1) ASCUS with positive high risk HPV cervical: Code(s): R87.610 - Atypical squamous cells of undetermined significance on cytologic smear of cervix (ASC-US); R87.810 - Cervical high risk human papillomavirus (HPV) DNA test positive Category: Medical Plan: Discussed with the patient the result of her abnormal pap, its significance, risk of progression, persistence, and regression. the false positive/negative rate of a Pap smear as a screening test in detecting cervical cancer and the indication for a diagnostic test -colposcopy, biopsy, endocervical curettage. The patient verbalized understanding and agreed with the plan, all questions answered. Colpo/biopsy/ECC done, see procedure note Orders: Orders AMB Colposcopy Today R87.610 - Atypical squamous cells of undetermined significance on cytologic smear of cervix (ASC-US), R87.810 - Cervical high risk human papillomavirus (HPV) DNA test positive Coding Level of Care Code Procedure Only Diagnoses ASCUS with positive high risk HPV cervical R87.610; R87.810 CPT Codes Colposcopy - CPT: [id number] of cervix including upper vagina with biopsy and ECC ([id number])
== END 2024-04-14 13:38 | disposition home or self-care (01) ==
LOC: HO.HWS 12:38
PROVIDERS: PCP Internal Medicine; Visit Provider Obstetrics & Gynecology
DX: R87.610 Atypical squamous cells of undetermined significance on cytologic smear of cervix (ASC-US) (principal); R87.810 Cervical high risk human papillomavirus (HPV) DNA test positive
CPT/HCPCS: 57454

== ENCOUNTER 2024-04-14 12:38 | Outpatient (REF) | payer OTHER, SELFPAY | END 2024-04-14 12:39 | disposition home or self-care (01) | LOC: HO.LNP 12:38 | PROVIDERS: PCP Internal Medicine; Visit Provider Obstetrics & Gynecology | DX: R87.610 Atypical squamous cells of undetermined significance on cytologic smear of cervix (ASC-US) (principal); B97.7 Papillomavirus as the cause of diseases classified elsewhere | CPT/HCPCS: 57454; 88305 ==

== ENCOUNTER 2024-04-28 12:50 | Outpatient (AMB) | payer OTHER, SELFPAY ==
[2024-04-28 12:54] VITALS: BP 110/78; PULSE 81; O2SAT 98; BMI 25.1
--- NOTE | 2024-04-28 12:54 | MHC.PC.OV ---
Vital Signs 04/28/24 12:54 Height 5 ft 7 in Weight 160 lb BMI 25.1 BP 110/78 Blood Pressure Location Lt brachial Position Sitting Pulse 81 Pulse Source Pulse Oximeter Pulse Oximetry (%) 98 Oxygen Delivery Method Room Air Intake Visit Reasons: DM Intake Note: As of right now she is having upper back pain and at the pains will radiate down her back into her lower back. Allergies No Known Allergies [NKA] Allergy (Mild, Verified 04/28/24 12:54) NOT APPLICABLE Tobacco use date assessed: 08/27/23 Dental Screening Dental Screen Date: 08/27/23 HPI DM HPI Details 48-year-old female with a history of controlled diabetes mellitus hypercholesterolemia coming in for follow-up. Last seen in December 2023. Patient's mammogram is up-to-date colonoscopy up-to-date. With the ascus patient continues to follow-up with gynecology [facility] Medical History Breast cancer screening by mammogram Encounter for screening colonoscopy Annual physical exam Pre-op examination Palpitations Fibroadenoma of breast Skin tag Well woman exam Vision blurred Varicose vein of leg Diverticular disease Left ulnar fracture GERD (gastroesophageal reflux disease) Hermansky-Pudlak syndrome Vitamin D deficiency Anxiety Overweight (BMI 25.0-29.9) Dysplasia of cervix, low grade (KELIN 1) Surgical History History of cholecystectomy H/O LEEP Family History Sister Uterine cancer Social History Housing: Apartment Alcohol intake: never Patient Tobacco Use Status: Never used Tobacco Tobacco use type: Cigarette e-Cigarette/Vaping Use: Never Used Second Hand Smoke Exposure: No service: No Current occupational status: employed 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 1. Little interest or pleasure in doing things: not at all 2. Feeling down, depressed, or hopeless: not at all 3. Trouble falling or staying asleep, or sleeping too much: not at all 4. Feeling tired or having little energy: not at all 5. Poor appetite or overeating: not at all 6. Feeling bad about yourself - or that you are a failure or have let yourself or your family down: not at all 7. Trouble concentrating on things, such as reading the newspaper or watching television: not at all 8. Moving or speaking so slowly that other people could have noticed. Or the opposite - being so fidgety or restless that you have been moving around a lot more than usual: not at all 9. Thoughts that you would be better off or of hurting yourself in some way: not at all Total score: 0 Depression Screening Interpretation: Negative Depression Screening Done: Yes Source: Developed by Drs. Johnny Murphy, Antionette Alexander, Guy Cortes and colleagues, with an educational carla from [employer]. Thrive Questionnaire Date Thrive assessed: 08/27/23 AUDIT C Alcohol Use Questionnaire (AUDIT-C) 1. How often do you have a drink containing alcohol?: Monthly or less 2. How many drinks containing alcohol do you have on a typical day when you are drinking?: 1 or 2 3. How often do you have six or more drinks on one occasion?: Never Total Score: 1 LUIS-7 AMB Questionnaire LUIS-7 Date LUIS - 7 assessed: 08/27/23 Source: Developed by Drs. Johnny Murphy, Antionette Alexander, Guy Cortes and colleagues, with an educational carla from [employer]. Physical exam (Primary Care) Vital Signs: Last Vital Signs Pulse 81 04/28/24 12:54 BP 110/78 04/28/24 12:54 Pulse Ox 98 04/28/24 12:54 Oxygen Delivery Method Room Air 04/28/24 12:54 BMI result Body Mass Index 25.1 Tobacco/Smoking Status: Tobacco use Status Tobacco use date assessed 08/27/23 04/28/24 12:55 Patient Tobacco Use Status Never used Tobacco 04/28/24 12:55 Tobacco use type Cigarette 04/28/24 12:55 e-Cigarette/Vaping Use Never Used 04/28/24 12:55 PHQ-9: PHQ-9 Score PHQ-9: Total score 0 04/28/24 13:00 Depression Screening Interpretation: Negative Thrive Assessment: Date of Thrive Assessment Date Thrive assessed 08/27/23 04/28/24 12:55 Const General: alert; No acute distress Eyes Conjunctivae: conjunctivae normal Resp Auscultation: clear to auscultation bilaterally Cardio Rate: regular rate Rhythm: regular rhythm GI Inspection: Yes normal to inspection Extrem General: Yes normal to inspection and No edema Results AMB Hemoglobin A1c AMB Hemoglobin A1c 6.4 % Last Edit by Tanvi Dutta CMA on 04/28/24 13:08 Coding Level of Care Code Est Pt Level 4 (09117) Diagnoses Type 2 diabetes mellitus with hyperglycemia E11.65 Hypercholesterolemia E78.00 ASCUS with positive high risk HPV cervical R87.610; R87.810 Acute bilateral thoracic back pain M54.6 Chronicity: acute Back pain laterality: bilateral Assessment & Plan Assessment & Plan (1) Type 2 diabetes mellitus with hyperglycemia: Comment: Dr. Noonan. Eye and lasik Code(s): E11.65 - Type 2 diabetes mellitus with hyperglycemia Category: Medical Plan: Decrease the amount of carbohydrate intake, pasta, bread, rice and potatoes are all sugar and that is aside from all the sweet stuff, remember that fruits are good but they are Sweet also. Hemoglobin A1c goal of less than 6.5. Patient is on metformin a 1000 mg twice a day. (2) Hypercholesterolemia: Code(s): E78.00 - Pure hypercholesterolemia, unspecified Category: Medical Plan: Avoid fried foods, chicken skin, eggs, butter margarine, pastries and meat. Be it pork or beef they have a lot of cholesterol presently on simvastatin 10 mg at bedtime and patient needs to have blood work done. (3) ASCUS with positive high risk HPV cervical: Code(s): R87.610 - Atypical squamous cells of undetermined significance on cytologic smear of cervix (ASC-US); R87.810 - Cervical high risk human papillomavirus (HPV) DNA test positive Category: Medical Plan: Patient continues to follow-up with gynecology. (4) Thoracic back pain: Code(s): M54.6 - Pain in thoracic spine Category: Medical Qualifiers: Chronicity: acute Back pain laterality: bilateral Qualified Code(s): M54.6 - Pain in thoracic spine Plan: offered PT but will give muscle relaxant for now- sied effects discussed about dsrowsiness Orders: Orders AMB Hemoglobin A1c Today Z13.9 - Encounter for screening, unspecified XR chest 2V Today M54.6 - Pain in thoracic spine Medications: New cyclobenzaprine 5 mg PO BEDTIME PRN 20 tabs 0RF muscle spasm M54.6 - Pain in thoracic spine Refilled triamcinolone acetonide 0.5% 1 appl topical BID 14 days 45 grams 0RF L30.9 - Dermatitis, unspecified
== END 2024-04-28 13:23 | disposition home or self-care (01) ==
PROVIDERS: PCP Internal Medicine; Visit Provider Internal Medicine
DX: E11.65 Type 2 diabetes mellitus with hyperglycemia (principal); E78.00 Pure hypercholesterolemia, unspecified; R87.610 Atypical squamous cells of undetermined significance on cytologic smear of cervix (ASC-US); R87.810 Cervical high risk human papillomavirus (HPV) DNA test positive; M54.6 Pain in thoracic spine; Z13.9 Encounter for screening, unspecified

== ENCOUNTER → 2024-04-28 12:50 | Outpatient (BNVA) | payer OTHER, SELFPAY | PROVIDERS: PCP Internal Medicine; Visit Provider Internal Medicine | DX: E11.65 Type 2 diabetes mellitus with hyperglycemia (principal); E78.00 Pure hypercholesterolemia, unspecified; R87.610 Atypical squamous cells of undetermined significance on cytologic smear of cervix (ASC-US); R87.810 Cervical high risk human papillomavirus (HPV) DNA test positive; M54.6 Pain in thoracic spine | CPT/HCPCS: 83036; 99212 ==

== ENCOUNTER 2024-06-11 12:30 | Outpatient (AMB) | payer OTHER, SELFPAY ==
[2024-06-11 12:41] VITALS: BMI 25.1
--- NOTE | 2024-06-11 12:41 | MHC.OFFVIS ---
Vital Signs 06/11/24 12:41 Height 5 ft 7 in Weight 160 lb BMI 25.1 Intake Visit Reasons: colpo results Procurement Inspector Required: Yes Procurement Inspector Language: Telemetry Nurse Services: Procurement Inspector Present (in person) Procurement Inspector Name: Halima SHORT Information Interpreted: non-clinical & clinical Accompanied by: Self / Same As Patient Allergies No Known Allergies [NKA] Allergy (Mild, Verified 06/11/24 12:42) NOT APPLICABLE Post menopausal: Yes HPI Comments Details: Presenting post colpo for follow-up. The patient is doing well with no complaints. The pathology showed the following: A. Endocervix, curettage: Inflamed squamous mucosa with reactive changes; no endocervical epithelium present; no atypia identified. B. Cervix, 1 o'clock, biopsy: Scant blood and fibrin; no epithelium present. C. Cervix, 9 o'clock, biopsy: Scant fragments of degenerated squamous epithelium and mucoinflammatory material; no endocervical epithelium present; no atypia identified. D. Cervix, 12 o'clock, biopsy: Inflamed squamous mucosa with reactive changes; no endocervical epithelium present; no atypia identified [facility] Medical History Breast cancer screening by mammogram Encounter for screening colonoscopy Annual physical exam Pre-op examination Palpitations Fibroadenoma of breast Skin tag Well woman exam Vision blurred Varicose vein of leg Diverticular disease Left ulnar fracture GERD (gastroesophageal reflux disease) Hermansky-Pudlak syndrome Vitamin D deficiency Anxiety Overweight (BMI 25.0-29.9) Dysplasia of cervix, low grade (KELIN 1) Surgical History History of cholecystectomy H/O LEEP Family History Sister Uterine cancer Social History Housing: Apartment Alcohol intake: never Patient Tobacco Use Status: Never used Tobacco Tobacco use type: Cigarette e-Cigarette/Vaping Use: Never Used Second Hand Smoke Exposure: No service: No Current occupational status: employed 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 Gender identity: Female Cognitive needs: No Hearing needs: No Vision needs: No Female Reproductive History Menstrual Age of Menarche: 11 Review of Systems Const All systems reviewed & are unremarkable except as noted in HPI and below Reports as per HPI and Reports no additional complaints GI Reports no additional complaints Reports no additional complaints Physical Exam Vital Signs: BMI result Body Mass Index 25.1 Assessment & Plan Assessment & Plan (1) ASCUS with positive high risk HPV cervical: Code(s): R87.610 - Atypical squamous cells of undetermined significance on cytologic smear of cervix (ASC-US); R87.810 - Cervical high risk human papillomavirus (HPV) DNA test positive Category: Medical Plan: Discussed with the patient the pathology results of the colposcopy biopsies & endocervical curettage ( negative). Discussed with the patient the sensitivity specificity, positive and negative predictive value in detecting cervical cancer in addition discussed the regression, persistence and progression rates. Recommended co-testing in 12 months, if cytology and or HPV are abnormal will proceed was colposcopy biopsy and endocervical curettage, if lesions gets worse or stays persistent for 2 years will proceed with loop electric excision procedure. Instructions given to the patient to schedule a co test appointment in 1 year. All questions answered the patient verbalized understanding. Coding Level of Care Code Est Pt Level 3 (55033) Diagnoses ASCUS with positive high risk HPV cervical R87.610; R87.810
== END 2024-06-11 13:31 | disposition home or self-care (01) ==
PROVIDERS: PCP Internal Medicine; Visit Provider Obstetrics & Gynecology
DX: R87.610 Atypical squamous cells of undetermined significance on cytologic smear of cervix (ASC-US) (principal); R87.810 Cervical high risk human papillomavirus (HPV) DNA test positive
CPT/HCPCS: 99213

== ENCOUNTER → 2024-06-11 12:30 | Outpatient (BNVA) | payer OTHER, SELFPAY | PROVIDERS: PCP Internal Medicine; Visit Provider Obstetrics & Gynecology | DX: R87.610 Atypical squamous cells of undetermined significance on cytologic smear of cervix (ASC-US) (principal); R87.810 Cervical high risk human papillomavirus (HPV) DNA test positive | CPT/HCPCS: 99212 ==

== ENCOUNTER 2024-06-26 12:02 | Outpatient (REF) | payer OTHER, SELFPAY ==
--- NOTE | ~2024-06-26 | XR_ITS ---
CLINICAL HISTORY: M54.6 - Pain in thoracic spine 2 view chest x-ray Comparison: None Findings: No consolidation or effusion. Heart size is normal. No acute fracture. IMPRESSION: 1. No acute findings. This document has been electronically signed by: Larry Everett MD on 06/27/2024 08:51:32
[2024-06-26 14:03] LABS: Estimated Average Glucose 143 mg/dL; Hemoglobin A1C 162.1695 umol/L; Hemoglobin A1c % 6.6 % (<6.0); Total Hemoglobin (HGBA1C) 3369.3191 umol/L
[2024-06-26 14:30] LABS: Alanine Aminotransferase 20 U/L (0-31); Albumin Level 4.5 g/dL (3.5-5.0); Alkaline Phosphatase 66 U/L (39-117); Anion Gap 12 (12-20); Aspartate Amino Transferase 21 U/L (5-31); Bilirubin Total 0.4 mg/dL (0.0-1.0); Blood Urea Nitrogen 13 mg/dL (9-16); Calcium 9.8 mg/dL (8.4-10.2); Carbon Dioxide 24 mmol/L (22-29); Chloride 109 mmol/L (96-108); Cholesterol 161 mg/dL (<200); Estimated Glomerular Filt Rate > 60; Glucose Random 94 mg/dL (60-115); HDL Cholesterol 47 mg/dL (>40); LDL Cholesterol Calculated 78 mg/dL (<100); Potassium 4.4 mmol/L (3.3-5.1); Sodium 141 mmol/L (135-145); Total Protein 8.4 g/dL (6.5-8.0); Triglycerides 183 mg/dL (<150)
[2024-06-26 14:40] LABS: Free T4 (Free Thyroxine) 0.84 ng/dL (0.71-1.85); Thyroid Stimulating Hormone 3.78 uIU/mL (0.32-4.0)
== END 2024-06-26 12:03 | disposition home or self-care (01) ==
LOC: HO.XRAY 12:02
PROVIDERS: PCP Internal Medicine; Visit Provider Internal Medicine
DX: E78.00 Pure hypercholesterolemia, unspecified (principal); E11.65 Type 2 diabetes mellitus with hyperglycemia; R79.89 Other specified abnormal findings of blood chemistry; M54.6 Pain in thoracic spine
CPT/HCPCS: 36415; 71046; 80053; 80061; 83036; 84439; 84443

== ENCOUNTER → 2024-06-26 12:35 | Outpatient (BNV) | payer OTHER, SELFPAY | PROVIDERS: PCP Internal Medicine; Visit Provider Specialist | DX: M54.6 Pain in thoracic spine (principal) | CPT/HCPCS: 71046 ==

== ENCOUNTER → 2024-06-27 12:31 | Outpatient (BNVA) | payer OTHER, SELFPAY | PROVIDERS: PCP Internal Medicine; Visit Provider Internal Medicine | DX: E11.65 Type 2 diabetes mellitus with hyperglycemia (principal); E78.00 Pure hypercholesterolemia, unspecified; M54.6 Pain in thoracic spine; M54.2 Cervicalgia | CPT/HCPCS: 99212 ==

== ENCOUNTER 2024-08-08 16:09 | Outpatient (REF) | payer OTHER, SELFPAY ==
--- NOTE | ~2024-08-08 | XR_ITS ---
CLINICAL HISTORY: M54.2 - Cervicalgia 3 views cervical spine Comparison: None Findings: There is mild cervical kyphosis which could be related to muscle spasm. No acute fractures or dislocation. No significant degenerative change. No prevertebral soft tissue swelling. There is a degenerating disc at C5-6 and C7-T1. There is evidence of calcific tendinitis adjacent to the occipital on the lateral view. IMPRESSION: 1. There is mild cervical kyphosis which could be related to muscle spasm. 2. There is a degenerating disc at C5-6 and C7-T1. 3. There is evidence of calcific tendinitis adjacent to the occipital on the lateral view. This document has been electronically signed by: Nicholas Macedo MD on 08/13/2024 10:17:30
--- NOTE | ~2024-08-08 | XR_ITS ---
CLINICAL HISTORY: M54.6 - Pain in thoracic spine 2 views thoracic spine Comparison: None Findings: Normal vertebral body alignment. No acute fractures or dislocation. No significant degenerative change. IMPRESSION: No acute findings. This document has been electronically signed by: Nicholas Macedo MD on 08/13/2024 10:19:37
--- OUTSIDE RECORDS SUMMARY | 2024-08-08 17:25 | XMS_ITS | Encounter Summary ---
Author Organization [facility] [employer] [facility] Address [address] [place] [address] [address] [place] [address] Care Team Providers Care Forms Analyst Name Role Phone Unavailable Primary Care Provider Unavailabl e Encounter Details Date Type Department Care Team (Latest Contact Info) Description 08/25/[address] [facility] CONVERSIONS Dental, Provider, DDS Social History Tobacco Use Types Packs/Day Years Used Date Smoking Tobacco: Never Assessed Comments Unknown Sex and Gender Information Value Date Recorded Sex Assigned at Female 04/03/2022 10:18 AM EDT Legal Sex Female 10:18 AM EDT Gender Identity Female 04/03/2022 10:18 AM EDT Sexual Orientation Straight 04/03/2022 10 :18 AM EDT documented as of this encounter Plan of Treatment Upcoming Encounters Date Type Department Care Team (Late st Contact Info) Description 12/11/2024 1:00 PM EDT Office Visit [facility] ADULT DENTAL [address] [place] [address] Sj Zunigaaris [address] [place] [address] documented as of this encounter Visit Diagnoses Not on filedocumented in this encounter
--- OUTSIDE RECORDS SUMMARY | 2024-08-08 17:25 | XMS_ITS | Clinical Summary ---
Author Organization [employer] Address [address] [place] [address] [address] [place] [address] Care Team Providers Care Dynamics Ax Solution Architect Name Role Phone Unavailable Primary Care Provider Unavailabl e Allergies No known active allergies Medications acetaminophen-c odeine (Tylenol w/ Codeine #3) 300-30 MG tablet TAKE 1 TABLET EVERY 4 HOURS NEEDED FOR PAIN 3 Active ergocalciferol (Vitamin D-2) 1.25 MG (65160 UT) capsule take 1 capsule by oral route every week Active lisinopril 2.5 MG tablet TOME LIZZY TABLETA TODOS LOS D 3 Active metFORMIN (Glucophage) 500 MG tablet TOME LIZZY TABLETA DOS VECES AL D A 3 Active simvastatin (Zocor) 10 MG tablet TOME LIZZY TABLETA TODOS LOS D AL ACOSTARSE FOR 90 DAYS 3 Active Active Problems Problem Noted Date Diagnosed Date Tipped teeth 06/06/2024 Dental caries 06/06/2024 Missing teeth, acquired 06/06/2024 Partially edentulous maxilla 10/06/2022 Dental plaque 09/21/2022 Gingival recession, localized 09/21/2022 Encounters Date Type Department Care Team Description 07/01/2024 2:30 PM EST Office Visit [facility] ADULT D[facility]AL [address] [place] [address] Cory De La Cruz DDS Dental caries (Primary Dx) 06/06/2024 1:00 PM EST Office Visit [facility] ADULT D[facility] [address] [place] [address] Krystal Zuniga Tipped teeth (Primary Dx); Dental caries; Dental plaque; Missing teeth, acquired; Gingival recession, localized from Last 3 Months Social History Tobacco Use Types Packs/Day Years Used Date Smoking Tobacco: Never Passive Smoke Exposure: Never Smokeless Tobacco: Never Tobacco Cessation:Counseling Given: Not Answered Alcohol Use Standard Drinks/Week Comments Defer 0 (1 standard drink = 0.6 oz pur e alcohol) Comments Unknown Sex and Gender Information Value Date Recorded Sex Assigned at Female 04/03/2022 10:18 AM EDT Legal Sex Female 10:18 AM EDT Gender Identity Female 04/03/2022 10:18 AM EDT Sexual Orientation Straight 04/03/2022 10 :18 AM EDT Last Filed Vital Signs Vital Sign [place] Time Taken Comments Blood Pressure 124/72 07/01/2024 2:18 PM EST Pulse 74 07/01/2024 2:18 PM EST Temperature - - Respiratory Rate - - Oxygen Saturation - - Inhaled Oxygen Concentration - - Weight - - Height - - Body Mass Index - - Plan of Treatment Upcoming Encounters Date Type Department Care Team (Late st Contact Info) Description 12/11/2024 1:00 PM EDT Office Visit [facility] ADULT D[facility]AL [address] [place] [address] Nadia, Krystal [address] [place] [address] Health Maintenance Due Date Last Done Comments CT Colonography 1973 Colonoscopy 1973 Colorectal Cancer Screening 1973 Depression Screening 1973 FIT DNA/Cologuard 1973 FIT 1973 FOBT 1973 HIV Screening 1973 Lipid Panel 1973 SDOH Screening 1973 Sigmoidoscopy 1973 Alcohol/Substance Use Screening 1985 Family Planning (PISQ) 1988 Hepatitis C Screening 11/09/1991 Pap Smear 1994 Cervical Cancer Screening 11/09/2003 HPV/Cotest 11/09/2003 Mammogram 2013 Hepatitis B Vaccines (3 of 3 - 19+ 3-dose series) 02/19/2022 09/16/2021, 08/19/2021 Zoster Vaccines (1 of 2) 11/09/2023 COVID-19 Vaccine ( - season) 2024 06/27/2021, 02/25/2021 Influenza Vaccine (#1) 2024 03/07/2023 Dental Oral Exam 12/05/2024 06/06/2024, 08/2023, 10/06/2022 Dental Prophylaxis 12/05/2024 06/06/2024, 0 11/26/2023, 05/14/2023, Additional history exists Dental X-Ray: Bitewings 06/07/2025 06/06/2024, 09/21 Tobacco Screening 07/01/2025 07/01/2024 Dental X-Ray: Full Mouth 06/07/2027 06/06/2024, 09/03 DTaP/Tdap/Td Vaccines (2 - Td or Tdap) 08/20/2031 08/19/2021 RSV Patients and Patients Aged 60 years or older (1 - 1-dose 75+ series) 2048 Pneumococcal Vaccine: 50+ Years Completed 08/03/2022 Pneumococcal Vaccine: Pediatrics (0 to 5 Years) and At-Risk Patients (6 to 49) Years) Aged Out 08/03/2022 No longer eligible based on patient's age to complete this topic HIB Vaccines Aged Out No longer eligi ble based on patient's age to complete this topic HPV Vaccines Aged Out No longer eligi ble based on patient's age to complete this topic Hepatitis A Vaccines Aged Out No long er eligible based on patient's age to complete this topic IPV Vaccines Aged Out No longer eligi ble based on patient's age to complete this topic Meningococcal Vaccine Aged Out No mackenzie antony eligible based on patient's age to complete this topic RSV under 20 months Aged Out No longe r eligible based on patient's age to complete this topic Rotavirus Vaccines Aged Out No longer eligible based on patient's age to complete this topic Procedures Procedure Name Priority Date/Time Associated Diagnosis Comments CASE PRESENTATION, DETAILED AND EXTENSIVE TREATMENT PLANNING Routine 07/01/2024 2:30 PM EST 12 M RESIN-BASED COMPOSITE - 1 SURF, POSTERIOR Routine 07/01/2024 2:30 PM EST ADJUST PARTIAL DENTURE - MAXILLARY Routine 07/01/2024 2:30 PM EST COMPREHENSIVE PERIODONTAL EVALUATION - NEW OR ESTABLISHED PATIENT Routine 06/06/2024 1:00 PM EST PERIODIC ORAL EVALUATION - ESTABLISHED PATIENT Routine 06/06/2024 1:00 PM EST CASE PRESENTATION, DETAILED AND EXTENSIVE TREATMENT PLANNING Routine 06/06/2024 1:00 PM EST Tipped teeth Dental caries Dental plaque Missing teeth, acquired Gingival recession, localized ORAL HYGIENE INSTRUCTIONS Routine 2024 1:00 PM EST Tipped teeth Dental caries Dental plaque Missing teeth, acquired Gingival recession, localized PROPHYLAXIS - ADULT Routine 06/06/2024 1 :00 PM EST Tipped teeth Dental caries Dental plaque Missing teeth, acquired Gingival recession, localized INTRAORAL - COMPLETE SERIES OF RADIOGRAPHIC IMAGES Routine 06/06/2024 1:00 PM EST Dental plaque Gingival recession, localized from Last 3 Months Insurance [employer] STAND ADULT Member Subscriber Plan / Payer (Ef fective 2022-Present) Name:Jayne Pierson Relation to Subscriber:Self Name:Jayne Pierson Payer ID:Not on file Group ID:Not on file Type:Not on file Address: [place] [id number]
--- OUTSIDE RECORDS SUMMARY | 2024-08-08 17:25 | XMS_ITS | Clinical Summary ---
Author Organization [facility] Address [address] [place] [address] Phone Care Team Providers Care Medical Officer Psychiatry Name Role Phone Slade Bliss MD Primary Care Provider [phone] Allergies No known active allergies Medications clotrimazole (LOTRIMIN) 1 % cream Apply to skin daily for 6 weeks 3 Active hydrocortisone 1 % topical cream Apply topically to skin daily right ankle 3 Active lisinopriL (PRINIVIL,ZESTR IL) 2.5 mg tablet Take 1 Tablet by mouth daily. Active metFORMIN (GLUCOPHAGE) 500 mg tablet Take 1 Tablet by mouth 2 times daily (with meals). Active simvastatin (ZOCOR) 10 mg tablet Take 1 Tablet by mouth at bedtime. Active triamcinolone (KENALOG) 0.025 % cream Apply 1 Applicator topically 2 times daily for 60 days. 3 Active Encounters Date Type Department Care Team Description 06/02/2024 1:00 PM EST Office Visit Orthopedic Surgery [facility] [address] [facility] [address] [place] [address] Brett Huerta, DPM Type 2 diabetes mellitus without complication, unspecified whether care home insulin use (CMS/[facility]) (Primary Dx); Ingrowing nail from Last 3 Months Social History Tobacco Use Types Packs/Day Years Used Date Smoking Tobacco: Never Assessed Comments Unknown Sex and Gender Information Value Date Recorded Sex Assigned at Not on file Legal Sex Female 4:57 AM EST Gender Identity Not on file Sexual Orientation Not on file Last Filed Vital Signs Vital Sign Reading Time Taken Comments Blood Pressure - - Pulse - - Temperature - - Respiratory Rate - - Oxygen Saturation - - Inhaled Oxygen Concentration - - Weight 75.3 kg (166 lb) 06/02/2024 1:04 PM EST Height 170.2 cm (5' 7 ) 06/02/2024 1:04 PM EST Body Mass Index 26 06/02/2024 1:04 PM EST Plan of Treatment Upcoming Encounters Date Type Department Care Team (Late st Contact Info) Description 06/02/2025 1:00 PM EST Office Visit Orthopedic Surgery - [place] [phone] [phone] Brett Huerta, PAUL [address] [address] Health Maintenance Due Date Last Done Comments Breast Cancer Screening 1973 Diabetes: Annual GFR (Glomerular Filtration Rate) 1973 Diabetes: Annual Foot Exam 11/09/1983 Diabetes: Annual Retina Eye Exam 11/09/1983 Cervical Cancer Screening: P ap Smear 1994 Hepatitis B Vaccines (3 of 3 - 19+ 3-dose series) 02/19/2022 09/16/2021, 08/19/2021 Cholesterol Screening (Lipid Panel) 07/04/2023 Colorectal Cancer Screening: Colonoscopy 07/04/2023 Depression Screening 07/04/2023 HIV Screening 07/04/2023 Hepatitis C Screening 07/04/2023 Social Influencers of Health Screening 07/04/2023 Zoster Vaccines (1 of 2) 11/09/2023 COVID-19 Vaccine (3 - 2023-2 5 season) 2024 06/27/2021, 02/25/2021 Influenza Vaccine (#1) 2024 03/07/2023 Diabetes: Annual Urine Albumin-Creatinine Ratio (uACR) 06/02/2024 Diabetes: Blood Sugar Contro l Test (HGBA1C) 06/02/2024 DTaP,Tdap,and Td Vaccines (2 - Td or Tdap) 08/20/2031 08/19/2021 Pneumococcal Vaccine: 50+ Years Completed 08/03/2022 Pneumococcal Vaccine: Pediatrics (0 to 5 Years) and At-Risk Patients (6 to 64 Years) Completed 08/03/2022 HIB Vaccines Aged Out No longer eligi [...] on patient's age to complete this topic MMR Vaccines Aged Out No longer eligi ble based on patient's age to complete this topic Meningococcal ACWY Vaccine Aged Out N o longer eligible based on patient's age to complete this topic Meningococcal B Vacine Aged Out No lo nger eligible based on patient's age to complete this topic RSV Immunization Patients Under 20 months Aged Out No longer eligible b ased on patient's age to complete this topic Varicella Vaccines Aged Out No longer eligible based on patient's age to complete this topic Insurance [facility] Care Teams Medical Officer Psychiatry Relationship Specialty Start Date End Date Slade Bliss MD [address] [place] [address] [place] [id number] PCP - General 12/25/22
--- OUTSIDE RECORDS SUMMARY | 2024-08-08 17:25 | XMS_ITS | Encounter Summary ---
Author Organization [facility] Address [address] [place] [address] [address] [place] [address] Care Team Providers Care Revenue Collector Name Role Phone Unavailable Primary Care Provider Unavailabl e Encounter Details Date Type Department Care Team (Latest Contact Info) Description 09/29/2020 Abstract [facility] CONVERSIONS Dental, Provider, DDS Social History [...] Description 12/11/2024 1:00 PM EDT Office Visit [facility] ADULT DENTAL [address] [place] [address] Sj Zunigaaris [address] [place] [address] documented as of this encounter Visit Diagnoses Not on filedocumented in this encounter
--- OUTSIDE RECORDS SUMMARY | 2024-08-08 17:25 | XMS_ITS | Encounter Summary ---
Author Organization [facility] [employer] [facility] Address [address] [place] [address] [address] [place] [address] Care Team Providers Care Blurb Writer Name Role Phone Unavailable Primary Care Provider Unavailabl e Encounter Details Date Type Department Care Team (Latest Contact Info) Description 11/22/2018 Abstract [facility] CONVERSIONS Dental, Provider, DDS Social History [...] Description 12/11/2024 1:00 PM EDT Office Visit [facility] ADULT DENTAL [address] [place] [address] Sj Zunigaaris [address] [place] [address] documented as of this encounter Visit Diagnoses Not on filedocumented in this encounter
== END 2024-08-08 16:10 | disposition home or self-care (01) ==
LOC: HO.XRAY 16:09
PROVIDERS: PCP Internal Medicine; Visit Provider Internal Medicine
DX: M54.2 Cervicalgia (principal); M54.6 Pain in thoracic spine
CPT/HCPCS: 72040; 72070

== ENCOUNTER → 2024-08-08 16:12 | Outpatient (BNV) | payer OTHER, SELFPAY | PROVIDERS: PCP Internal Medicine; Visit Provider Radiology Diagnostic Radiology | DX: M54.2 Cervicalgia (principal); M54.6 Pain in thoracic spine | CPT/HCPCS: 72040; 72070 ==

== ENCOUNTER 2024-08-11 13:02 | Outpatient (AMB) | payer OTHER, SELFPAY ==
--- NOTE | 2024-08-11 13:07 | MHC.PC.OV ---
Vital Signs 08/11/24 13:08 Height 5 ft 7 in Weight 158 lb BMI 24.7 BP 108/70 Blood Pressure Location Lt brachial Position Sitting Pulse 88 Pulse Source Pulse Oximeter Pulse Oximetry (%) 97 Oxygen Delivery Method Room Air Intake Visit Reasons: DM, Cholesterol Intake Note: Patient here for a follow up DM, Cholesterol Chute Greaser Required: No Accompanied by: Self / Same As Patient Allergies No Known Allergies [NKA] Allergy (Mild, Verified 08/11/24 13:11) NOT APPLICABLE Tobacco use date assessed: 06/27/24 Dental Screening Dental Screen Date: 06/27/24 [facility] Medical History Breast cancer screening by mammogram Encounter for screening colonoscopy Annual physical exam Pre-op examination Palpitations Fibroadenoma of breast Skin tag Well woman exam Vision blurred Varicose vein of leg Diverticular disease Left ulnar fracture GERD (gastroesophageal reflux disease) Hermansky-Pudlak syndrome Vitamin D deficiency Anxiety Overweight (BMI 25.0-29.9) Dysplasia of cervix, low grade (KELIN 1) Surgical History History of cholecystectomy H/O LEEP Family History Sister Uterine cancer Social History Housing: Apartment Alcohol intake: never Patient Tobacco Use Status: Never used Tobacco e-Cigarette/Vaping Use: Never Used Second Hand Smoke Exposure: No service: No Current occupational status: employed 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 Johnny Murphy, Antionette Alexander, Guy Cortes and colleagues, with an educational carla from [employer]. Physical exam (Primary Care) Vital Signs: Last Vital Signs Pulse 88 08/11/24 13:08 BP 108/70 08/11/24 13:08 Pulse Ox 97 08/11/24 13:08 Oxygen Delivery Method Room Air 08/11/24 13:08 BMI result Body Mass Index 24.7 Tobacco/Smoking Status: Tobacco use Status Tobacco use date assessed 06/27/24 06/27/24 12:51 Patient Tobacco Use Status Never used Tobacco 06/27/24 12:51 Tobacco use type Cigarette 06/27/24 12:51 e-Cigarette/Vaping Use Never Used 06/27/24 12:51 Thrive Assessment: Date of Thrive Assessment Date Thrive assessed 06/27/24 06/27/24 12:51 Const General: alert; No acute distress Eyes Conjunctivae: conjunctivae normal Resp Auscultation: clear to auscultation bilaterally Cardio Rate: regular rate Rhythm: regular rhythm GI Inspection: Yes normal to inspection Extrem General: Yes normal to inspection and No edema Coding Level of Care Code Est Pt Level 4 (39504) Diagnoses Type 2 diabetes mellitus with hyperglycemia E11.65 Hypercholesterolemia E78.00 Acute bilateral thoracic back pain M54.6 Back pain laterality: bilateral Chronicity: acute Assessment & Plan Assessment & Plan (1) Type 2 diabetes mellitus with hyperglycemia: Comment: Dr. Noonan. Eye and lasik Code(s): E11.65 - Type 2 diabetes mellitus with hyperglycemia Category: Medical Plan: Decrease the amount of carbohydrate intake, pasta, bread, rice and potatoes are all sugar and that is aside from all the sweet stuff, remember that fruits are good but they are Sweet also. On metformin a 1000 mg twice a day Jardiance 10 mg once a day (2) Hypercholesterolemia: Code(s): E78.00 - Pure hypercholesterolemia, unspecified Category: Medical Plan: Avoid fried foods, chicken skin, eggs, butter margarine, pastries and meat. Be it pork or beef they have a lot of cholesterol on simvastatin 10 mg once a day LDL goal of less than 100 and triglyceride of less than 150 (3) Thoracic back pain: Code(s): M54.6 - Pain in thoracic spine Category: Medical Qualifiers: Back pain laterality: bilateral Chronicity: acute Qualified Code(s): M54.6 - Pain in thoracic spine Plan: X-rays pending Plan History of Present Illness The patient is a 48-year-old female presenting for a follow-up related to diabetes management and evaluation of pending cervical and thoracic spine X-ray results. She reports a recent weight loss of 5 pounds. Her diabetes management includes Lisinopril 2.5 mg, Metformin 1000 mg twice daily, and Jardiance 10 mg daily. In June 2024, her blood work showed a Hemoglobin A1c of 6.6 and an LDL level of 78. Her thyroid function was normal. She has well-controlled blood glucose levels and continues to follow her prescribed medication regimen. Health maintenance is current regarding mammograms and colonoscopy. The patient is engaged in her care plan and aware of the importance of routine monitoring. 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 - Vision: Last eye examination in April 2024. Physical Exam - Respiratory- Lungs are clear. Results - Labs: Hemoglobin A1c 6.6; LDL 78; Triglycerides 183; Normal thyroid function - Pending: Cervical and thoracic spine X-rays Plan 1. 5, her diabetes regimen includes Metformin 1000 mg twice daily and Jardiance 10 mg daily. Simvastatin is effectively managing her cholesterol. Monitoring results of the pending cervical and thoracic spine X-rays are crucial. Continued surveillance with routine screenings and discussions during her next visit in December will ensure her health remains optimal.: Patient was informed and verbally consented to the use of an ambient scribe for clinic note documentation during this visit. Discussion Notes The patient and I discussed the current management of her diabetes and hypercholesterolemia, focusing on medication adherence to achieve the desired A1c and LDL levels. We reviewed her pending cervical and thoracic spine X-ray results. I advised her on the importance of maintaining her health maintenance, particularly in view of her occupational exposure to infectious diseases. We agreed on maintaining the current medication regimen, with the plan to re-evaluate in December. The patient expressed understanding and consented to the current management plan. Patient Instructions - Continue current medications: Lisinopril, Metformin, Jardiance, and Simvastatin - Monitor blood glucose levels regularly - Maintain current health screenings and awareness of occupational health risks - Await further instructions post-review of cervical and thoracic spine X-ray results - Follow up in December or sooner if advised based on X-ray findings - Ensure adequate water intake and adhere to preventative health measures - Contact the office if any health changes occur or with questions regarding test outcomes.
[2024-08-11 13:08] VITALS: BP 108/70; PULSE 88; O2SAT 97; BMI 24.7
--- OUTSIDE RECORDS SUMMARY | 2024-08-11 14:36 | XMS_ITS | Encounter Summary ---
Author Organization [facility] [employer] [facility] Address [address] [place] [address] 7 [place] [address] Care Team Providers Care Instrument Calibrator Name Role Phone Unavailable Primary Care Provider Unavailabl e Encounter Details Date Type Department Care Team (Latest Contact Info) Description 11/22/2018 Abstract [facility] CONVERSIONS Dental, Provider, DDS Social History [...] Description 12/11/2024 1:00 PM EDT Office Visit [facility] ADULT DENTAL [address] [place] [address] Sj Zunigaaris [address] [place] [address] documented as of this encounter Visit Diagnoses Not on filedocumented in this encounter
--- OUTSIDE RECORDS SUMMARY | 2024-08-11 14:36 | XMS_ITS | Encounter Summary ---
Author Organization [facility] [employer] [facility] Address [address] [place] [address] [address] [place] [address] Care Team Providers Care Innersole Maker Name Role Phone Unavailable Primary Care Provider Unavailabl e Encounter Details Date Type Department Care Team (Latest Contact Info) Description 08/25/2021 Abstract [facility] CONVERSIONS Dental, Provider, DDS Social History [...] Description 12/11/2024 1:00 PM EDT Office Visit [facility] ADULT DENTAL [address] [place] [address] Sj Zunigaaris [address] [place] [address] documented as of this encounter Visit Diagnoses Not on filedocumented in this encounter
--- OUTSIDE RECORDS SUMMARY | 2024-08-11 14:36 | XMS_ITS | Encounter Summary ---
Author Organization [facility] [employer] [facility] Address [address] [place] [address] 7 [place] [address] Care Team Providers Care Geological Engineer Name Role Phone Unavailable Primary Care Provider Unavailabl e Encounter Details Date Type Department Care Team (Latest Contact Info) Description 09/29/2020 Abstract [facility] CONVERSIONS Dental, Provider, DDS Social History Tobacco [...] Description 12/11/2024 1:00 PM EDT Office Visit [facility] ADULT DENTAL [address] [place] [address] Sj Zunigaaris [address] [place] [address] documented as of this encounter Visit Diagnoses Not on filedocumented in this encounter
--- OUTSIDE RECORDS SUMMARY | 2024-08-11 14:36 | XMS_ITS | Clinical Summary ---
Author Organization [employer] Address [address] [place] [address] 7 [place] [address] Care Team Providers Care Yeast Fermentation Attendant Name Role Phone Unavailable Primary Care Provider Unavailabl e Allergies No known active allergies Medications acetaminophen-c odeine (Tylenol w/ Codeine #3) 300-30 MG tablet TAKE 1 TABLET EVERY 4 HOURS NEEDED FOR PAIN 3 Active ergocalciferol (Vitamin D-2) 1.25 MG (58822 UT) capsule take 1 capsule by oral [...] Description 07/01/2024 2:30 PM EST Office Visit [facility] ADULT DENTAL [address] [place] [address] Cory De La Cruz DDS Dental caries (Primary Dx) 06/06/2024 1:00 PM EST Office Visit [facility] ADULT DENTAL [address] [place] [address] Krystal Zuniga Tipped teeth (Primary Dx); Dental [...] Description 12/11/2024 1:00 PM EDT Office Visit [facility] ADULT DENTAL [address] [place] [address] Nadia, Krystal [address] [place] [address] Health Maintenance Due Date Last Done Comments [...] recession, localized from Last 3 Months Insurance [facility] MEDICAID STAND ADULT Member Subscriber Plan / Payer (Ef fective 2022-Present) Name:Jayne Pierson Relation to Subscriber:Self Name:Jayne Pierson Payer ID:Not on file Group ID:Not on file Type:Not on file Address: [place] [id number]
--- OUTSIDE RECORDS SUMMARY | 2024-08-11 14:36 | XMS_ITS | Clinical Summary ---
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) (Primary Dx); Ingrowing nail from Last 3 [...] PM EST Office Visit Orthopedic Surgery - [place] [address] [phone] Brett Huerta, PAUL [address] [address] Health Maintenance Due Date Last Done Comments [...] patient's age to complete this topic Insurance [facility] Care Teams Mva Reactor Operator Relationship Specialty Start Date End Date Slade Bliss MD [address] [place] [address] [place] [address] PCP - General 12/25/22
== END 2024-08-11 13:23 | disposition home or self-care (01) ==
PROVIDERS: PCP Internal Medicine; Visit Provider Internal Medicine
DX: E11.65 Type 2 diabetes mellitus with hyperglycemia (principal); E78.00 Pure hypercholesterolemia, unspecified; M54.6 Pain in thoracic spine

== ENCOUNTER → 2024-08-11 13:02 | Outpatient (BNVA) | payer OTHER, SELFPAY | PROVIDERS: PCP Internal Medicine; Visit Provider Internal Medicine | DX: E11.65 Type 2 diabetes mellitus with hyperglycemia (principal); E78.00 Pure hypercholesterolemia, unspecified; M54.6 Pain in thoracic spine | CPT/HCPCS: 99212 ==

== ENCOUNTER 2024-12-23 12:18 | Outpatient (REF) | payer OTHER, SELFPAY ==
[2024-12-23 12:31] LABS: MANUAL DIFF FLAG NO
[2024-12-23 12:40] LABS: Hematocrit 40.7 % (37.0-47.0); Hemoglobin 12.9 g/dl (12.0-16.0); Imm Gran Abs Auto 0.03 X10*3/uL (0.00-0.03); Imm Gran Pct Auto 0.4 % (0.0-0.4); Lymphocytes Absolute Auto 2.2 X10*3/uL (1.2-4.9); Mean Corpuscular HGB Conc 31.7 g/dl (31.0-35.0); Mean Corpuscular Hemoglobin 24.4 pg (27.0-33.0); Mean Corpuscular Volume 77.1 fL (80.0-98.0); NRBC Abs Auto 0.000 X10*3/uL (0.0-0.012); NRBC Pct Auto 0.0 /100WBC (0.0-0.2); Platelet Count 342 X10*3/uL (160-400); Red Blood Count 5.28 X10*6/uL (4.20-5.50); White Blood Count 7.1 X10*3/uL (4.8-10.8)
[2024-12-23 12:50] LABS: Hemoglobin A1C 148.5388 umol/L; Total Hemoglobin (HGBA1C) 3286.5844 umol/L
[2024-12-23 13:08] LABS: Alanine Aminotransferase 18 U/L (0-31); Albumin Level 4.7 g/dL (3.5-5.0); Alkaline Phosphatase 73 U/L (39-117); Anion Gap 12 (12-20); Aspartate Amino Transferase 25 U/L (5-31); Blood Urea Nitrogen 13 mg/dL (9-16); Calcium 9.2 mg/dL (8.4-10.2); Carbon Dioxide 24 mmol/L (22-29); Chloride 106 mmol/L (96-108); Cholesterol 157 mg/dL (<200); Estimated Glomerular Filt Rate > 60; HDL Cholesterol 43 mg/dL (>40); Potassium 4.2 mmol/L (3.3-5.1); Sodium 138 mmol/L (135-145); Total Protein 7.9 g/dL (6.5-8.0); Triglycerides 143 mg/dL (<150)
--- OUTSIDE RECORDS SUMMARY | 2024-12-23 13:20 | XMS_ITS | Patient Health Record ---
Author Organization [facility] Address [address] [place] [address] Care Team Providers Care Garnett Feeder Name Role Phone Po Denis SALMERON Primary Care Provider Alvin Suarez Jr Unavailable [phone] Reason For Referral No Information Medications Medication SIG (Take, Route, Fr equency, Duration) Notes Start Date End Date Status Golytely 236 GM as directed before c olonoscopy Orally every 15 minutes for 1 day(s) Active Social History Tobacco Use: Social History Observation Description Date Details (start date - stop date) Never Smoker NA - NA Tobacco Use/Smoking Question Answer Notes Patient is a nonsmoker Alcohol Screen Question Answer Notes Did you have a drink containing alcohol in the p ast year? No Points 0 Interpretation Negative Problems Problem Type SNOMED Code ICD Code Onset Dates Problem Status W/U Status Risk Notes Problem 8577634 Diverticulitis o f large intestine without perforation or abscess with bleeding (K57.33) Active confirmed Problem [id number] Hematochezia (K92.1) Active confirmed Plan Of Treatment Future Test Test Name Order Date COLONOSCOPY 12/21/2017 Insurance Providers Payer Name Payer Address Payer Phone Subscriber Number Group Number Insured Name Patient Relationship to Insured Coverage Start Date Coverage End Date [facility] [employer] Plan [address] [address] [place], [place] [id number] GRABIEL ARROYO Self - patient is the insured Medical (General) History Medical History History ICD Code Denies [place],DM,CVA,Lung disease,renal dise ase
--- OUTSIDE RECORDS SUMMARY | 2024-12-23 13:20 | XMS_ITS | Encounter Summary ---
Author Organization [facility] Address [address] [facility] 7 [place] [address] Care Team Providers Care Sales Representative Business Courses Name Role Phone Unavailable Primary Care Provider Unavailabl e Encounter Details Date Type Department Care Team (Latest Contact Info) Description 09/29/2020 Abstract [facility] CONVERSIONS Dental, Provider, DDS Social History [...] Care Team (Late st Contact Info) Description 06/24/2025 1:00 PM EST Office Visit [facility] ADULT DENTAL [address] [place] [address] Krystal Zuniga [address] [place] [address] documented as of this encounter Visit Diagnoses Not on filedocumented in this encounter
--- OUTSIDE RECORDS SUMMARY | 2024-12-23 13:20 | XMS_ITS | Clinical Summary ---
Author Organization 175 [facility] Address [address] [place] [address] Phone Care Team Providers Care Electronic Scale Subassembler Name Role Phone Slade Bliss MD Primary Care Provider [phone] Allergies No known active allergies Medications clotrimazole [...] times daily for 60 days. 3 Active Social History Tobacco Use Types Packs/Day Years [...] PM EST Office Visit Orthopedic Surgery - [place] 250 175 [facility] [address] [place] [address] Brett Huerta, DPM [address] [address] Health Maintenance Due Date Last Done Comments Breast Cancer Screening 1973 Cervical Cancer Screening: P ap Smear 1994 Hepatitis B Vaccines (3 of 3 - 19+ 3-dose series) 02/19/2022 09/16/2021, 08/19/2021 Colorectal Cancer Screening: Colonoscopy 07/04/2023 HIV Screening 07/04/2023 Hepatitis C Screening 07/04/2023 Social Influencers of Health Screening 07/04/2023 Zoster Vaccines (1 of 2) 11/09/2023 COVID-19 Vaccine (3 - 2023-2 5 season) 2024 06/27/2021, 02/25/2021 Depression Screening 06/04/2024 Influenza Vaccine (#1) 2025 03/07/2023 DTaP,Tdap,and Td Vaccines (2 - Td or Tdap) 08/20/2031 08/19/2021 Pneumococcal Vaccine: 50+ Years Completed 08/03/2022 HIB Vaccines Aged Out No [...] age to complete this topic Meningococcal B Vaccine Aged Out No l onger eligible based on patient's age to complete this topic RSV Immunization Patients Under 20 months Aged Out No longer eligible b ased on patient's age to complete this topic Varicella Vaccines Aged Out No longer eligible based on patient's age to complete this topic Insurance [facility] PLAN Care Teams Electronic Scale Subassembler Relationship Specialty Start Date End Date Slade Bliss MD [address] [place] [address] PCP - General 12/25/22
[2024-12-23 13:33] LABS: Free T4 (Free Thyroxine) 0.86 ng/dL (0.71-1.85); Thyroid Stimulating Hormone 3.79 uIU/mL (0.32-4.0)
[2024-12-23 13:38] LABS: Folate 13.8 ng/mL (> or = 4.0); Vitamin B12 636 pg/mL (200-900)
[2024-12-23 14:33] LABS: Appearance Urine Clear; Glucose Urine UA >=1000 mg/dL (Negative); PH 5.5 (5.0-9.0); Specific Gravity - Urine >= 1.030 (1.005-1.025); UMIC TRIGGER UACC YES
[2024-12-23 15:07] LABS: Microalbum/Creatinine Ratio Ur 10.5 ug/mg cr (<30)
== END 2024-12-23 12:19 | disposition home or self-care (01) ==
LOC: HO.LAB 12:18
PROVIDERS: PCP Internal Medicine; Visit Provider Internal Medicine
DX: E11.65 Type 2 diabetes mellitus with hyperglycemia (principal); E78.00 Pure hypercholesterolemia, unspecified; R30.0 Dysuria
CPT/HCPCS: 36415; 80053; 80061; 81001; 82043; 82306; 82570; 82607; 82746; 83036; 84439; 84443; 85025

== ENCOUNTER 2024-12-26 12:52 | Outpatient (AMB) | payer OTHER, SELFPAY ==
--- OUTSIDE RECORDS SUMMARY | 2024-12-26 12:54 | XMS_ITS | Clinical Summary ---
Author Organization 175 [facility] Address [address] [place] [address] Phone Care Team Providers Care Continuing Education Dean Name Role Phone Slade Bliss MD Primary Care Provider [phone] Allergies No known active allergies Medications clotrimazole [...] PM EST Office Visit Orthopedic Surgery - [place] 250 175 [facility] [address] [place] [address] Brett Huerta, DPM [address] [address] Health Maintenance Due Date Last Done Comments [...] patient's age to complete this topic Insurance [facility] PL[facility] Care Teams Continuing Education Dean Relationship Specialty Start Date End Date Slade Bliss MD [address] [place] [address] PCP - General 12/25/22
--- OUTSIDE RECORDS SUMMARY | 2024-12-26 12:55 | XMS_ITS | Encounter Summary ---
Author Organization [email or web address] [facility] Address [address] [facility] 7 [place] [address] Care Team Providers Care Neurology Technologist Name Role Phone Unavailable Primary Care Provider Unavailabl e Encounter Details Date Type Department Care Team (Latest Contact Info) Description 09/29/2020 Abstract [facility] CONVERSIONS Dental, Provider, DDS Social History Tobacco [...] Description 06/24/2025 1:00 PM EST Office Visit [facility] ADULT DENTAL [address] [place] [address] Krystal Zuniga [address] [place] [address] documented as of this encounter Visit Diagnoses Not on filedocumented in this encounter
--- OUTSIDE RECORDS SUMMARY | 2024-12-26 12:55 | XMS_ITS | Patient Health Record ---
Author Organization [facility] Address [address] [place] [address] Care Team Providers Care Travel Journalist Name Role Phone Po Denis SALMERON Primary Care Provider Alvin Suarez Jr Unavailable Reason For Referral No Information Medications Medication [...] Problem Status W/U Status Risk Notes Problem 4352213 Diverticulitis o f large intestine without perforation or abscess with bleeding (K57.33) Active confirmed Problem [id number] Hematochezia (K92.1) Active confirmed Plan Of Treatment Future Test Test Name Order Date COLONOSCOPY 12/21/2017 Insurance Providers Payer Name Payer Address Payer Phone Subscriber Number Group Number Insured Name Patient Relationship to Insured Coverage Start Date Coverage End Date [facility] [employer] [facility] [employer] Plan [address] [address] [place], [place] [id number] GRABIEL ARROYO Self - patient is the insured Medical (General) History Medical History History ICD Code Denies [place],DM,CVA,Lung disease,renal dise ase
--- NOTE | 2024-12-26 13:13 | MHC.PC.OV ---
Vital Signs 12/26/24 13:15 Height 5 ft 7 in Weight 156 lb 4 oz BMI 24.5 BP 122/76 Blood Pressure Location Lt brachial Position Sitting Pulse 99 Pulse Source Pulse Oximeter Temp 97.3 F Temp Source Temporal Artery Scan Pulse Oximetry (%) 98 Oxygen Delivery Method Room Air Intake Visit Reasons: Annual exam Intake Note: Patient is here today for a physical. Canvas Marker Required: Yes Canvas Marker Language: Latvian Information Interpreted: non-clinical & clinical Commercial Green Building Architect: Not Required per policy Accompanied by: Self / Same As Patient Allergies No Known Allergies (NKA) Allergy (Mild, Verified 12/26/24 13:14) NOT APPLICABLE Medication List - Last Reconciled 12/26/24 by Denis Shepherd MD ascorbate calcium (vitamin C) 500 mg PO DAILY blood sugar diagnostic (FreeStyle Lite Strips) As directed check the BS QD blood-glucose meter (FreeStyle Lite Meter kit) As directed cholecalciferol (vitamin D3) 10 mcg PO DAILY cyclobenzaprine 5 mg PO BEDTIME PRN empagliflozin (Jardiance) 10 mg PO DAILY lancets (FreeStyle Lancets) As directed check BS QD lisinopril 2.5 mg PO DAILY 90 days metformin 1,000 mg PO BID 30 days simethicone (Gas Relief (simethicone)) 125 mg PO ONCE simvastatin 10 mg PO BEDTIME 90 days triamcinolone acetonide 0.5% 1 appl topical BID 14 days Tobacco use date assessed: 12/26/24 Dental Screening Dental Screen Date: 06/27/24 [facility] Medical History (Updated 12/26/24 @ 13:54 by Denis Shepherd MD) Breast cancer screening by mammogram Encounter for screening colonoscopy Annual physical exam Pre-op examination Palpitations Fibroadenoma of breast Skin tag Well woman exam Vision blurred Varicose vein of leg Diverticular disease Left ulnar fracture GERD (gastroesophageal reflux disease) Hermansky-Pudlak syndrome Vitamin D deficiency Anxiety Overweight (BMI 25.0-29.9) Dysplasia of cervix, low grade (KELIN 1) Surgical History History of cholecystectomy H/O LEEP Family History Sister Uterine cancer Social History Housing: Apartment Alcohol intake: never Patient Tobacco Use Status: Never used Tobacco e-Cigarette/Vaping Use: Never Used Second Hand Smoke Exposure: No service: No Current occupational status: employed 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 1. Little interest or pleasure in doing things: not at all 2. Feeling down, depressed, or hopeless: not at all 3. Trouble falling or staying asleep, or sleeping too much: not at all 4. Feeling tired or having little energy: not at all 5. Poor appetite or overeating: not at all 6. Feeling bad about yourself - or that you are a failure or have let yourself or your family down: not at all 7. Trouble concentrating on things, such as reading the newspaper or watching television: not at all 8. Moving or speaking so slowly that other people could have noticed. Or the opposite - being so fidgety or restless that you have been moving around a lot more than usual: not at all 9. Thoughts that you would be better off or of hurting yourself in some way: not at all Total score: 0 Depression Screening Interpretation: Negative Depression Screening Done: Yes Source: Developed by Drs. Johnny Murphy, Antionette Alexander, Guy Cortes and colleagues, with an educational carla from [employer]. Thrive Questionnaire Date Thrive assessed: 06/27/24 I am a: Patient What is your living situation today?: I have a steady place to live Within the past 12 months, did the food you bought not last and you didn't have the money to get more?: Often true Within the past 12 months, did you worry whether your food would run out before you got money to buy more?: Never true Do you have trouble paying for medicines?: No Do you have trouble getting transportation to medical appointments?: No Do you have trouble paying your heating and electricity bill?: No Do you have trouble taking care of your child, family member or friend?: No Do you have trouble with day-to-day activities such as bathing, preparing meals, shopping, managing finances, etc.?: No Are you currently unemployed and looking for a job?: No Are you interested in more education?: No Please select the resources that you would like help with: Housing/Intermediate, Food and Transportation Currently or been in a relationship where the following occur: No concerns reported THRIVE Score: 1 AUDIT C Alcohol Use Questionnaire (AUDIT-C) 1. How often do you have a drink containing alcohol?: Never Total Score: 0 LUIS-7 AMB Questionnaire LUIS-7 Date LUIS - 7 assessed: 12/26/24 Feeling nervous, anxious, or on edge: 0 = Not at all Not being able to stop or control worryin = Not at all Worrying too much about different things: 0 = Not at all Trouble relaxin = Not at all Being so restless that it is hard to sit still: 0 = Not at all Becoming easily annoyed or irritable: 0 = Not at all Feeling afraid as if something awful might happen: 0 = Not at all Total LUIS-7 score (0-4 normal; 5-9 mild; 10-14 moderate; 15-21 severe): 0 Source: Developed by Drs. Johnny Murphy, Antionette Alexander, Guy Cortes and colleagues, with an educational carla from [employer]. Physical exam (Primary Care) Vital Signs: Last Vital Signs Temp 97.3 F 12/26/24 13:15 Pulse 99 12/26/24 13:15 BP 122/76 12/26/24 13:15 Pulse Ox 98 12/26/24 13:15 Oxygen Delivery Method Room Air 12/26/24 13:15 BMI result Body Mass Index 24.5 Tobacco/Smoking Status: Tobacco use Status Tobacco use date assessed 12/26/24 12/26/24 13:20 Patient Tobacco Use Status Never used Tobacco 12/26/24 13:20 Tobacco use type 08/12/24 08:13 e-Cigarette/Vaping Use Never Used 12/26/24 13:20 PHQ-9: PHQ-9 Score PHQ-9: Total score 0 12/26/24 13:53 Depression Screening Interpretation: Negative Thrive Assessment: Date of Thrive Assessment Date Thrive assessed 06/27/24 12/26/24 13:20 Currently or been in a relationship where the following occur: No concerns reported Const General: alert; No acute distress Eyes Conjunctivae: conjunctivae normal Resp Auscultation: clear to auscultation bilaterally Cardio Rate: regular rate Rhythm: regular rhythm GI Inspection: Yes normal to inspection Extrem General: Yes normal to inspection and No edema Coding Level of Care Code Est Pt Level 4 (60406) Diagnoses Type 2 diabetes mellitus with hyperglycemia E11.65 Hypercholesterolemia E78.00 ASCUS with positive high risk HPV cervical R87.610; R87.810 Breast cancer screening by mammogram Assessment & Plan Assessment & Plan (1) Type 2 diabetes mellitus with hyperglycemia: Comment: Dr. Noonan. Eye and lasik Code(s): E11.65 - Type 2 diabetes mellitus with hyperglycemia Category: Medical Plan: Decrease the amount of carbohydrate intake, pasta, bread, rice and potatoes are all sugar and that is aside from all the sweet stuff, remember that fruits are good but they are Sweet also. Hemoglobin A1c goal of less than 6.5 patient is on Jardiance and metformin (2) Hypercholesterolemia: Code(s): E78.00 - Pure hypercholesterolemia, unspecified Category: Medical Plan: Avoid fried foods, chicken skin, eggs, butter margarine, pastries and meat. Be it pork or beef they have a lot of cholesterol LDL goal of less than 100 on simvastatin 10 mg once a day (3) ASCUS with positive high risk HPV cervical: Code(s): R87.610 - Atypical squamous cells of undetermined significance on cytologic smear of cervix (ASC-US); R87.810 - Cervical high risk human papillomavirus (HPV) DNA test positive Category: Medical Plan: Continue to follow-up with gynecology (4) Breast cancer screening by mammogram: Code(s): Z. - Encounter for screening mammogram for malignant neoplasm of breast Category: Medical Plan History of Present Illness The patient is a 49-year-old female presenting for a routine follow-up and preventative care visit. The patient has a history of iron deficiency without anemia, noted during recent blood work where microcytic red blood cells were observed, although hemoglobin levels remain within normal limits. This condition is typically associated with iron deficiency, and follow-up is planned to monitor the situation. The patient has Type 2 Diabetes Mellitus, with a recent hemoglobin A1c of 6.3%, showing improvement from a previous level of 6.6%. The patient is currently on metformin and Jardiance, which are part of her diabetes management regimen. The patient also has hyperlipidemia, with recent lab results showing LDL cholesterol at 86 mg/dL and triglycerides reduced from 183 mg/dL to 143 mg/dL. The patient is on simvastatin for cholesterol management. Vitamin D deficiency was noted, with recommendations to avoid sun exposure due to high temperatures, and potential supplementation was discussed. The patient reports eczema and requested a refill for triamcinolone cream, which was sent to the pharmacy. Preventative care measures include a mammogram, which is due as the last one was in September 2023. Health Maintenance - Mammogram screening is due as the last one was in September 2023. - Vitamin D supplementation discussed due to deficiency. - Eczema management with triamcinolone cream. - Diabetes management with metformin and Jardiance, with improved A1c levels. - Hyperlipidemia management with simvastatin, with improved lipid profile. Social History Review of Systems - Gastrointestinal: Denies constipation, reports normal bowel movements. - Genitourinary: Denies nocturia, reports waking up once at night to urinate occasionally. Physical Exam Results - Labs: Hemoglobin A1c at 6.3%, LDL cholesterol at 86 mg/dL, triglycerides at 143 mg/dL, vitamin D deficiency noted. - Urinalysis: No proteinuria detected. Plan The patient will continue with her current diabetes management regimen, including metformin and Jardiance, given the improvement in her hemoglobin A1c levels. A refill for triamcinolone cream has been provided for eczema management. The patient is advised to schedule a mammogram as her last screening was in September 2023. Vitamin D supplementation is recommended due to deficiency, with a caution to avoid excessive sun exposure due to high temperatures. The patient's hyperlipidemia is being managed with simvastatin, and recent improvements in lipid profile are noted. Patient was informed and verbally consented to the use of an ambient scribe for clinic note documentation during this visit. Discussion Notes I discussed with the patient the importance of continuing her current diabetes management regimen, including metformin and Jardiance, due to the improvement in her hemoglobin A1c levels. We also talked about the need for a mammogram, as her last screening was in September 2023, and the importance of vitamin D supplementation due to deficiency. The patient was informed about the refill for triamcinolone cream for eczema management and the ongoing management of hyperlipidemia with simvastatin, noting recent improvements in her lipid profile. Patient Instructions - Continue taking metformin and Jardiance as prescribed. - Use triamcinolone cream as directed for eczema. - Schedule a mammogram as soon as possible. - Consider vitamin D supplementation and avoid excessive sun exposure. - Continue simvastatin for cholesterol management. Orders: Orders MM tomosynthesis screening BI Today Z12.31 - Encounter for screening mammogram for malignant neoplasm of breast Medications: Refilled metformin 1,000 mg PO BID 60 tabs 1RF 30 days E11.65 - Type 2 diabetes mellitus with hyperglycemia empagliflozin (Jardiance) 10 mg PO DAILY 90 tabs 3RF E11.65 - Type 2 diabetes mellitus with hyperglycemia triamcinolone acetonide 0.5% 1 appl topical BID 45 grams 0RF 14 days L30.9 - Dermatitis, unspecified
[2024-12-26 13:15] VITALS: BP 122/76; PULSE 99; TEMP 36.3; O2SAT 98; BMI 24.5
== END 2024-12-26 14:03 | disposition home or self-care (01) ==
LOC: HO.HMCH 12:53
PROVIDERS: PCP Internal Medicine; Visit Provider Internal Medicine
DX: E11.65 Type 2 diabetes mellitus with hyperglycemia (principal); E78.00 Pure hypercholesterolemia, unspecified; R87.610 Atypical squamous cells of undetermined significance on cytologic smear of cervix (ASC-US); R87.810 Cervical high risk human papillomavirus (HPV) DNA test positive; Z12.31 Encounter for screening mammogram for malignant neoplasm of breast

== ENCOUNTER → 2024-12-26 12:52 | Outpatient (BNVA) | payer OTHER, SELFPAY | PROVIDERS: PCP Internal Medicine; Visit Provider Internal Medicine | DX: Z00.00 Encounter for general adult medical examination without abnormal findings (principal); E11.65 Type 2 diabetes mellitus with hyperglycemia; E78.00 Pure hypercholesterolemia, unspecified; R87.610 Atypical squamous cells of undetermined significance on cytologic smear of cervix (ASC-US); R87.810 Cervical high risk human papillomavirus (HPV) DNA test positive; L30.9 Dermatitis, unspecified | CPT/HCPCS: 99212 ==

== ENCOUNTER 2025-01-27 12:21 | Outpatient (REF) | payer OTHER, SELFPAY ==
--- OUTSIDE RECORDS SUMMARY | 2025-01-27 13:09 | XMS_ITS | Encounter Summary ---
Author Organization [facility] Address [address] [facility] [address], [place] [address] Care Team Providers Care Insole And Outsole Preparer Name Role Phone Unavailable Primary Care Provider Unavailabl e Encounter Details Date Type Department Care Team (Latest Contact Info) Description 08/25/2021 Abstract [facility] CONVERSIONS Dental, Provider, DDS Social [...] Description 06/24/2025 1:00 PM EST Office Visit [facility] ADULT DENTAL [address] [place] [address] Krystal Zuniga [address] [place] [address] documented as of this encounter Visit Diagnoses Not on filedocumented in this encounter
--- OUTSIDE RECORDS SUMMARY | 2025-01-27 13:09 | XMS_ITS | Clinical Summary ---
Author Organization [facility] Address [address] [place] [address] Phone Care Team Providers Care Extrusion Die Coordinator Name Role Phone Slade Bliss MD Primary Care Provider [phone] Allergies No known active allergies Medications clotrimazole [...] PM EST Office Visit [facility] [place] [address] [place] [address] [place] [phone] Brett Huerta, DPM [address] [place] [address] Health Maintenance Due Date Last Done Comments [...] patient's age to complete this topic Insurance [facility] PL[facility] Care Teams Extrusion Die Coordinator Relationship Specialty Start Date End Date Slade Bliss MD [address] [place] [address] PCP - General 12/25/22
--- OUTSIDE RECORDS SUMMARY | 2025-01-27 13:09 | XMS_ITS | Encounter Summary ---
Author Organization [employer] [facility] Address [address] [facility] [address], [place] [address] Care Team Providers Care Ios Programmer Name Role Phone Unavailable Primary Care Provider Unavailabl e Encounter Details Date Type Department Care Team (Latest Contact Info) Description 09/29/2020 Abstract [facility] CONVERSIONS Dental, Provider, DDS Social [...] Description 06/24/2025 1:00 PM EST Office Visit [facility] ADULT DENTAL [address] [place] [address] Krystal Zuniga [address] [place] [address] documented as of this encounter Visit Diagnoses Not on filedocumented in this encounter
--- OUTSIDE RECORDS SUMMARY | 2025-01-27 13:09 | XMS_ITS | Encounter Summary ---
Author Organization [facility] Address [address] [facility] [address] [place] [address] Care Team Providers Care Policy Manager Name Role Phone Unavailable Primary Care Provider Unavailabl e Encounter Details Date Type Department Care Team (Latest Contact Info) Description 11/22/2018 Abstract [facility] CONVERSIONS Dental, Provider, DDS Social [...] Description 06/24/2025 1:00 PM EST Office Visit [facility] ADULT DENTAL [address] [place] [address] Krystal Zuniga [address] [place] [address] documented as of this encounter Visit Diagnoses Not on filedocumented in this encounter
--- OUTSIDE RECORDS SUMMARY | 2025-01-27 13:10 | XMS_ITS | Patient Health Record ---
Author Organization [facility] Address [address] [place] [address] Care Team Providers Care Supervisor Bonding Name Role Phone Po Denis SALMERON Primary Care Provider Alvin Suarez Jr Unavailable [phone] Reason For Referral No Information Medications Medication [...] Problem Status W/U Status Risk Notes Problem [id number] Diverticulitis o f large intestine without perforation or abscess with bleeding (K57.33) Active confirmed Problem [id number] Hematochezia (K92.1) Active confirmed Plan Of Treatment Future Test Test Name Order Date COLONOSCOPY 12/21/2017 Insurance Providers Payer Name Payer Address Payer Phone Subscriber Number Group Number Insured Name Patient Relationship to Insured Coverage Start Date Coverage End Date [facility] My[employer] Plan [address] [address] [place], [place] [id number] GRABIEL ARROYO Self - patient is the insured Medical (General) History Medical History History ICD Code Denies NE,DM,CVA,Lung disease,renal dise ase
--- OUTSIDE RECORDS SUMMARY | 2025-01-27 13:10 | XMS_ITS | Clinical Summary ---
Author Organization [employer] Address [address] [facility] [address] [facility] [address] [place] [address] Care Team Providers Care Director Pharmaceutical Name Role Phone Unavailable Primary Care Provider Unavailabl e Allergies No known active allergies Medications acetaminophen-c odeine (Tylenol w/ Codeine #3) 300-30 MG tablet TAKE 1 TABLET EVERY 4 HOURS NEEDED FOR PAIN 3 Active ergocalciferol (Vitamin D-2) 1.25 MG (62454 UT) capsule take 1 capsule by oral [...] Encounters Date Type Department Care Team Description 12/11/2024 1:00 PM EDT Office Visit [facility] ADULT DENTAL [address] [place] [address] NadiaKrystal blunt Denture stomatitis (Primary Dx); Dental plaque; Tipped teeth; Missing teeth, acquired; Gingival recession, localized from [...] Sign Reading Time Taken Comments Blood Pressure 108/66 12/11/2024 1:00 PM EDT Pulse 74 07/01/2024 2:18 PM EST Temperature - - Respiratory Rate - - Oxygen Saturation - - Inhaled Oxygen Concentration - - Weight - - Height - - Body Mass Index - - Plan of Treatment Upcoming Encounters Date Type Department Care Team (Late st Contact Info) Description 06/24/2025 1:00 PM EST Office Visit [facility] ADULT DENTAL [address] [place], [place] [phone] Nadia, Krystal [address] [place] [address] Health Maintenance Due Date Last Done Comments CT Colonography 1973 Colonoscopy 1973 Colorectal Cancer Screening 1973 Depression Screening 1973 FIT DNA/Cologuard 1973 FIT 1973 FOBT 1973 HIV Screening 1973 SDOH Screening 1973 Sigmoidoscopy 1973 Disability Screening 1973 Alcohol/Substance Use Screening 1985 Family Planning (PISQ) 1988 Hepatitis C Screening 11/09/1991 Pap Smear 1994 Cervical Cancer Screening 11/09/2003 HPV/Cotest 11/09/2003 Mammogram 2013 Hepatitis B Vaccines (3 of 3 - 19+ 3-dose series) 02/19/2022 09/16/2021, 08/19/2021 Zoster Vaccines (1 of 2) 11/09/2023 COVID-19 Vaccine (2023- season) 2024 06/27/2021, 02/25/2021 Dental Oral Exam 12/05/2024 06/06/2024, 08/2023, 10/06/2022 Influenza Vaccine (#1) 2025 03/07/2023 Dental X-Ray: Bitewings 06/07/2025 06/06/2024, 09/21 Dental Prophylaxis 06/14/2025 12/11/2024, 0 06/06/2024, 11/26/2023, Additional history exists Tobacco Screening 12/11/2025 12/11/2024 Dental X-Ray: Full Mouth 06/07/2027 06/06/2024, 09/03 DTaP/Tdap/Td Vaccines (2 - Td or Tdap) 08/20/2031 08/19/2021 RSV Patients and Patients Aged 60 years or older (1 - 1-dose 75+ series) 2048 Pneumococcal Vaccine: 50+ Years Completed 08/03/2022 HIB [...] PRESENTATION, DETAILED AND EXTENSIVE TREATMENT PLANNING Routine 12/11/2024 1:00 PM EDT Denture stomatitis Dental plaque Tipped teeth Missing teeth, acquired Gingival recession, localized ORAL HYGIENE INSTRUCTIONS Routine 12/11/2024 1:00 PM EDT Denture stomatitis Dental plaque Tipped teeth Missing teeth, acquired Gingival recession, localized Full PROPHYLAXIS - ADULT Routine 025 1:00 PM EDT Denture stomatitis Dental plaque INTRAORAL - COMPLETE SERIES OF RADIOGRAPHIC IMAGES Routine 06/06/2024 1:00 PM EST Dental plaque Gingival recession, localized PERIODIC ORAL EVALUATION - ESTABLISHED PATIENT Routine 06/06/2024 1:00 PM EST from Last 3 Months or Most Recently Relevant to Health Maintenance Insurance [facility] ST[place] AD[place]
[2025-01-27 14:30] LABS: Appearance Urine Clear; Glucose Urine UA >=1000 mg/dL (Negative); PH 5.5 (5.0-9.0); Specific Gravity - Urine >= 1.030 (1.005-1.025); UMIC TRIGGER UACC YES
== END 2025-01-27 12:22 | disposition home or self-care (01) ==
LOC: HO.LAB 12:21
PROVIDERS: PCP Internal Medicine; Visit Provider Internal Medicine
DX: E11.65 Type 2 diabetes mellitus with hyperglycemia (principal)
CPT/HCPCS: 81001; 82570

== ENCOUNTER 2025-02-16 13:23 | Outpatient (REF) | payer OTHER, SELFPAY ==
--- NOTE | ~2025-02-16 | MM_ITS ---
EXAMINATION: MM SCREENING DIGITAL BREAST TOMOSYNTHESIS, BILATERAL CLINICAL INFORMATION: Screening. Asymptomatic. COMPARISON: Mammography: Comparison is made with available priors TECHNIQUE: Digital breast mammography with tomosynthesis is performed in both the craniocaudal and mediolateral oblique views along with computer-aided detection (CAD). FINDINGS: The breasts are extremely dense, which lowers the sensitivity of mammography (ACR BI-RADS breast composition Category d). Right: Asymmetry inferior breast posterior depth on MLO view. No suspicious calcifications or other abnormal findings. Left: There are no significant masses, abnormal calcifications, or other abnormalities. MM/MM tomosynthesis screening BI IMPRESSION: Additional imaging is recommended ASSESSMENT: BI-RADS BI-RADS 0 - Incomplete: Needs additional Imaging. RECOMMENDATION: 1. Additional views of the right breast. 2. Targeted ultrasound if warranted after review of the additional views. 3. Radiology department staff will contact the patient for additional imaging. Additional Imaging required This examination should not preclude the clinical evaluation of a suspicious palpable abnormality. This patient's information was entered into a reminder system with a target due date for their next mammogram. Electronically signed by: Chio Sanchez DO 02/16/2025 01:55 PM EDT
--- OUTSIDE RECORDS SUMMARY | 2025-02-16 18:34 | XMS_ITS | Encounter Summary ---
Author Organization [facility] [facility] Address [address] [facility] [address], [place] [address] Care Team Providers Care Telephone Advice Nurse Name Role Phone Unavailable Primary Care Provider Unavailabl e Encounter Details Date Type Department Care Team (Latest Contact Info) Description 09/29/2020 Abstract [facility] CONVERSIONS Dental, Provider, DDS Social History Tobacco [...] 1:00 PM EST Office Visit [facility] ADULT DENTAL [address] [place] [address] Krystal Zuniga [address] [place] [address] documented as of this encounter Visit Diagnoses Not on filedocumented in this encounter
--- OUTSIDE RECORDS SUMMARY | 2025-02-16 18:34 | XMS_ITS | Encounter Summary ---
Author Organization [facility] Address [address] [facility] [address] [place] [address] Care Team Providers Care Car Salesman Name Role Phone Unavailable Primary Care Provider Unavailabl e Encounter Details Date Type Department Care Team (Latest Contact Info) Description 11/22/2018 Abstract [facility] CONVERSIONS Dental, Provider, DDS Social History [...] Description 06/24/2025 1:00 PM EST Office Visit [facility] ADULT DENTAL [address] [place] [address] Krystal Zuniga [address] [place] [address] documented as of this encounter Visit Diagnoses Not on filedocumented in this encounter
--- OUTSIDE RECORDS SUMMARY | 2025-02-16 18:34 | XMS_ITS | Clinical Summary ---
Author Organization [facility] Address [address] [place] [address] Phone Care Team Providers Care Valet Runner Name Role Phone Slade Bliss MD Primary Care Provider [phone] Allergies No known active allergies Medications clotrimazole [...] PM EST Office Visit Orthopedic Surgery - [place] [address] [facility] [address] [place] [address] Brett Huerta, DPMolly [address] [facility] [address] [place] [address] Health Maintenance Due Date Last Done Comments Breast Cancer Screening 1973 Cervical Cancer Screening: P ap Smear 1994 Hepatitis B Vaccines (3 of 3 - 19+ 3-dose series) 02/19/2022 09/16/2021, 08/19/2021 Colorectal Cancer Screening: Colonoscopy 07/04/2023 HIV Screening 07/04/2023 Hepatitis C Screening 07/04/2023 Social Influencers of Health Screening 07/04/2023 Zoster Vaccines (1 of 2) 11/09/2023 Depression Screening 06/04/2024 COVID-19 Vaccine (3 - 2024-2 6 season) 2025 06/27/2021, 02/25/2021 Influenza Vaccine (#1) 2025 03/07/2023 DTaP,Tdap,and Td [...] patient's age to complete this topic Insurance [facility] PL[facility] Care Teams Valet Runner Relationship Specialty Start Date End Date Slade Bliss MD [address] [place] [address] PCP - General 12/25/22
--- OUTSIDE RECORDS SUMMARY | 2025-02-16 18:34 | XMS_ITS | Encounter Summary ---
Author Organization [facility] Address [address] [facility] [address], [place] [address] Care Team Providers Care Printing Machine Operator Name Role Phone Unavailable Primary Care Provider Unavailabl e Encounter Details Date Type Department Care Team (Latest Contact Info) Description 08/25/2021 Abstract [facility] CONVERSIONS Dental, Provider, DDS Social History [...] Description 06/24/2025 1:00 PM EST Office Visit [facility] ADULT DENTAL [address] [place] [address] Krystal Zuniga [address] [place] [address] documented as of this encounter Visit Diagnoses Not on filedocumented in this encounter
--- OUTSIDE RECORDS SUMMARY | 2025-02-16 18:34 | XMS_ITS | Clinical Summary ---
Author Organization [employer] Address [address] [facility] [address] [address] Care Team Providers Care French Translator Name Role Phone Unavailable Primary Care Provider Unavailabl e Allergies No known active allergies Medications acetaminophen-c odeine (Tylenol w/ Codeine #3) 300-30 MG tablet TAKE 1 TABLET EVERY 4 HOURS NEEDED FOR PAIN 3 Active ergocalciferol (Vitamin D-2) 1.25 MG (70793 UT) capsule take 1 capsule by oral [...] Description 12/11/2024 1:00 PM EDT Office Visit [facility] ADULT DENTAL [address] [place] [address] NadiaKrystal blunt Denture stomatitis (Primary Dx); Dental [...] 1:00 PM EST Office Visit [facility] ADULT DENTAL [address] [place], [place] [phone] Nadia, Krystal [address] [place] [address] Health Maintenance Due Date Last Done Comments [...] 08/19/2021 Zoster Vaccines (1 of 2) 11/09/2023 Dental Oral Exam 12/05/2024 06/06/2024, 08/2023, 10/06/2022 COVID-19 Vaccine (3 - season) 2025 06/27/2021, 02/25/2021 Influenza Vaccine (#1) 2025 03/07/2023 Dental X-Ray: [...]
== END 2025-02-16 13:24 | disposition home or self-care (01) ==
LOC: HO.MAMMO 13:23
PROVIDERS: PCP Internal Medicine; Visit Provider Internal Medicine
DX: Z12.31 Encounter for screening mammogram for malignant neoplasm of breast (principal)
CPT/HCPCS: 77063; 77067

== ENCOUNTER → 2025-02-16 13:45 | Outpatient (BNV) | payer OTHER, SELFPAY | PROVIDERS: PCP Internal Medicine; Visit Provider Internal Medicine | DX: Z12.31 Encounter for screening mammogram for malignant neoplasm of breast (principal) | CPT/HCPCS: 77063; 77067 ==

== ENCOUNTER 2025-04-14 13:31 | Outpatient (AMB) | payer OTHER, SELFPAY ==
--- NOTE | 2025-04-14 13:33 | A.OFFVIS_ITS ---
Vital Signs 04/14/25 13:34 Height 5 ft 7 in Weight 154 lb BMI 24.1 BP 104/62 Intake Visit Reasons: annual Juvenile Justice Specialist Required: Yes Juvenile Justice Specialist Language: Communications Senior Associate Services: Juvenile Justice Specialist Present (in person) Juvenile Justice Specialist Name: Halima Bocanegra Information Interpreted: non-clinical & clinical Burglar Alarm Installer: Burglar Alarm Installer Present (Halima SHORT) Accompanied by: Self / Same As Patient Allergies No Known Allergies (NKA) Allergy (Mild, Verified 04/14/25 13:42) NOT APPLICABLE Post menopausal: Yes HPI Comments Details: Presenting for annual exam. No complaints. Last Pap/HPV was negative/HPV positive, colpo biopsy ECC was negative Last Mammogram was BI-RADS 0 in 02/16, the patient is schedule for additional views on 02/23/2025 Last Colonoscopy was done in 06/27, the recommendation was to repeat in 10 years [facility] Medical History Breast cancer screening by mammogram Encounter for screening colonoscopy Annual physical exam Pre-op examination Palpitations Fibroadenoma of breast Skin tag Well woman exam Vision blurred Varicose vein of leg Diverticular disease Left ulnar fracture GERD (gastroesophageal reflux disease) Hermansky-Pudlak syndrome Vitamin D deficiency Anxiety Overweight (BMI 25.0-29.9) Dysplasia of cervix, low grade (KELIN 1) Surgical History History of cholecystectomy H/O LEEP Family History Sister Uterine cancer Social History Housing: Apartment Alcohol intake: never Patient Tobacco Use Status: Never used Tobacco e-Cigarette/Vaping Use: Never Used Second Hand Smoke Exposure: No service: No Current occupational status: employed 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 Gender identity: Female Cognitive needs: No Hearing needs: No Vision needs: No Female Reproductive History Menstrual Age of Menarche: 11 Date of last pap smear: 10/10/22 History of abnormal pap smear: Yes (HPV +) Date of Mammogram: 02/16/25 Review of Systems Const All systems reviewed & are unremarkable except as noted in HPI and below Card Reports as per HPI Resp Reports as per HPI GI Reports as per HPI and Reports no additional complaints Reports as per HPI Physical Exam Vital Signs: Last Vital Signs BP 104/62 04/14/25 13:34 BMI result Body Mass Index 24.1 Const General: cooperative, healthy appearing and comfortable Chest Chest palpation & inspection: normal inspection of the chest and normal palpation of entire chest wall Breast/axilla inspection: normal inspection of the breasts and normal inspection of the axillae Breast/axilla palpation: normal palpation of the breasts, normal palpation of the axillae and no axillary lymphadenopathy Resp Effort & Inspection: normal respiratory effort Auscultation: clear to auscultation bilaterally Percussion: percussion normal Cardio Palpation: normal PMI Rate: regular rate Rhythm: regular rhythm Heart sounds: no murmurs and no rubs Peripheral pulses: Peripheral pulses 2+ throughout GI Inspection: Yes normal to inspection Palpation (GI): Soft to palpation, nontender, no guarding, not rigid and No hepatosplenomegaly present Percussion: Yes normal to percussion Auscultation: normal bowel sounds Rectal Exam - Female: deferred General: Yes bladder normal to palpation External Female Exam: No lesion Speculum Exam - Vagina: normal appearance of the vagina, normal palpation, normal vaginal discharge and not erythematous Speculum Exam - Cervix: normal appearance of the cervix and normal palpation Bimanual exam- vagina & uterus: normal bimanual exam, normal palpation, uterine size normal, bladder normal to palpation, consistency normal and normal palpation Bimanual Exam- Adnexa, other: normal adnexae, no masses and no tenderness Assessment & Plan Assessment & Plan (1) Well woman exam: Comment: History of KELIN 1 persistent status post LEEP 2020 2021 Ascus/HPV positive E6/E7/18, negative HPV 16 and 45 2022 Pap negative/HPV E6 E7 16 positive, colpo biopsy negative 04/27 Pap negative/HPV positive, colpo biopsy ECC negative Code(s): Z01.419 - Encounter for gynecological examination (general) (routine) without abnormal findings Category: Medical Plan: Co testing done. Counseled the patient about the recommended dietary allowance of 1200 mg of Calcium & 600 IU of vitamin D. Mammogram additional view schedule. The patient was instructed to perform monthly self-breast exams and schedule annual exam in a year. All questions answered and the patient verbalized understanding. Coding Level of Care Code Est Pt Prev Care 40-64y(83035) Diagnoses Well woman exam Z01.419
[2025-04-14 13:34] VITALS: BP 104/62; BMI 24.1
--- OUTSIDE RECORDS SUMMARY | 2025-04-14 15:07 | XMS_ITS | Encounter Summary ---
Author Organization [facility] Address [address] [address] Care Team Providers Care Estate Planning Paralegal Name Role Phone Unavailable Primary Care Provider Unavailabl e Encounter Details Date Type Department Care Team (Latest Contact Info) Description 09/29/[address] [facility] CONVERSIONS Dental, Provider, DDS Social History [...] Team (Late st Contact Info) Description 06/24/2025 12:45 PM EST Office Visit [facility] ADULT DENTAL [address] [place] [address] Krystal Zuniga [address] [place] [address] documented as of this encounter Visit Diagnoses Not on filedocumented in this encounter
--- OUTSIDE RECORDS SUMMARY | 2025-04-14 15:07 | XMS_ITS | Clinical Summary ---
Author Organization [employer] Address [address] [place] [address] [address] [place] [address] Care Team Providers Care Truck Driver Flatbed Name Role Phone Unavailable Primary Care Provider Unavailabl e Allergies No known active allergies Medications acetaminophen-c odeine (Tylenol w/ Codeine #3) 300-30 MG tablet TAKE 1 TABLET EVERY 4 HOURS NEEDED FOR PAIN 3 Active ergocalciferol (Vitamin D-2) 1.25 MG (28887 UT) capsule take 1 capsule by oral [...] Dental plaque 09/21/2022 Gingival recession, localized 09/21/2022 Social History Tobacco Use Types Packs/Day Years [...] Description 06/24/2025 12:45 PM EST Office Visit [facility] ADULT DENTAL [address] [place] [address] Nadia, Krystal [address] [place] [address] Health Maintenance Due Date Last Done Comments [...] 06/06/2024, 08/2023, 10/06/2022 COVID-19 Vaccine (3 - 2024- season) 2025 06/27/2021, 02/25/2021 Influenza Vaccine (#1) [...] Procedure Name Priority Date/Time Associated Diagnosis Comments Full PROPHYLAXIS - ADULT Routine 025 1:00 PM EDT Denture stomatitis Dental plaque INTRAORAL - COMPLETE SERIES OF RADIOGRAPHIC IMAGES Routine 06/06/2024 1:00 PM EST Dental plaque Gingival recession, localized PERIODIC ORAL EVALUATION - ESTABLISHED PATIENT Routine 06/06/2024 1:00 PM EST from Last 3 Months or Most Recently Relevant to Health Maintenance Insurance [facility] MEDICAID STAND ADULT
--- OUTSIDE RECORDS SUMMARY | 2025-04-14 15:07 | XMS_ITS | Encounter Summary ---
Author Organization [facility] Address [address] [facility] [address] [address] Care Team Providers Care Tire Shop Mechanic Name Role Phone Unavailable Primary Care Provider Unavailabl e Encounter Details Date Type Department Care Team (Latest Contact Info) Description 08/25/2021 Abstract [facility] CONVERSIONS Dental, Provider, DDS Social History [...] Description 06/24/2025 12:45 PM EST Office Visit [facility] ADULT DENTAL [address] [place] [address] Krystal Zuniga [address] [place] [address] documented as of this encounter Visit Diagnoses Not on filedocumented in this encounter
--- OUTSIDE RECORDS SUMMARY | 2025-04-14 15:07 | XMS_ITS | Encounter Summary ---
Author Organization [facility] Address [address] [facility] [address] [place] [address] Care Team Providers Care Credit Union Field Examiner Name Role Phone Unavailable Primary Care Provider Unavailabl e Encounter Details Date Type Department Care Team (Latest Contact Info) Description 11/22/2018 Abstract [facility] CONVERSIONS Dental, Provider, DDS Social [...] Description 06/24/2025 12:45 PM EST Office Visit [facility] ADULT DENTAL [address] [place] [address] Krystal Zuniga [address] [place] [address] documented as of this encounter Visit Diagnoses Not on filedocumented in this encounter
== END 2025-04-15 14:43 | disposition home or self-care (01) ==
LOC: HO.HWS 13:31
PROVIDERS: PCP Internal Medicine; Visit Provider Obstetrics & Gynecology
DX: Z01.419 Encounter for gynecological examination (general) (routine) without abnormal findings (principal)
CPT/HCPCS: 99396; 99459

== ENCOUNTER 2025-04-14 13:31 | Outpatient (REF) | payer OTHER, SELFPAY ==
--- OUTSIDE RECORDS SUMMARY | 2025-04-14 15:38 | XMS_ITS | Clinical Summary ---
Author Organization [facility] Address [address] [place] [address] Phone Care Team Providers Care Boiling Tub Operator Name Role Phone Slade Bliss MD Primary Care Provider [phone] Allergies No known active allergies Medications clotrimazole [...] PM EST Office Visit [facility] [place] [address] [facility] [address] [place] [address] Brett Huerta, DPMolly [address] [facility] [address] [place] [address] Health Maintenance Due Date Last Done Comments Breast Cancer Screening 1973 Colorectal Cancer Screening: Colonoscopy 1973 Cervical Cancer Screening: P ap Smear 1994 Hepatitis B Vaccines (3 of 3 - 19+ 3-dose series) 02/19/2022 09/16/2021, 08/19/2021 HIV Screening 07/04/2023 Hepatitis C Screening 07/04/2023 Social Influencers of Health Screening 07/04/2023 Zoster Vaccines (1 of 2) 11/09/2023 Depression Screening 06/04/2024 COVID-19 Vaccine (3 - 2024-2 6 season) 2025 06/27/2021, 02/25/2021 Influenza Vaccine (#1) 2025 03/07/2023 DTaP,Tdap,and Td Vaccines (2 - Td or Tdap) 08/20/2031 08/19/2021 RSV Immunization Adult Patients (1 - 1-dose 75+ series) 2048 Pneumococcal [...] patient's age to complete this topic Insurance [facility] Care Teams Boiling Tub Operator Relationship Specialty Start Date End Date Slade Bliss MD [address] [place] [address] [place] [id number] PCP - General 12/25/22
== END 2025-04-14 13:32 | disposition home or self-care (01) ==
LOC: HO.LNP 13:31
PROVIDERS: PCP Internal Medicine; Visit Provider Obstetrics & Gynecology
DX: Z01.419 Encounter for gynecological examination (general) (routine) without abnormal findings (principal); Z11.51 Encounter for screening for human papillomavirus (HPV)
CPT/HCPCS: 87626; 88175; 99396

== ENCOUNTER 2025-04-21 12:53 | Outpatient (AMB) | payer OTHER, SELFPAY ==
--- NOTE | 2025-04-21 12:58 | A.OFFPC_ITS ---
Vital Signs 04/21/25 13:00 Height 5 ft 7 in Weight 157 lb 2 oz BMI 24.6 BP 114/72 Blood Pressure Location Lt brachial Position Sitting Pulse 85 Pulse Source Pulse Oximeter Temp 97.1 F Temp Source Temporal Artery Scan Pulse Oximetry (%) 97 Oxygen Delivery Method Room Air Intake Visit Reasons: DM Allergies No Known Allergies (NKA) Allergy (Mild, Verified 04/21/25 13:02) NOT APPLICABLE Medication List - Last Reconciled 04/21/25 by Denis Shepherd MD ascorbate calcium (vitamin C) 500 mg PO DAILY blood sugar diagnostic (FreeStyle Lite Strips) As directed check the BS QD blood-glucose meter (FreeStyle Lite Meter kit) As directed cholecalciferol (vitamin D3) 10 mcg PO DAILY cyclobenzaprine 5 mg PO BEDTIME PRN empagliflozin (Jardiance) 10 mg PO DAILY lancets (FreeStyle Lancets) As directed check BS QD lisinopril 2.5 mg PO DAILY 90 days metformin 1,000 mg PO BID 30 days simethicone (Gas Relief (simethicone)) 125 mg PO ONCE simvastatin 10 mg PO BEDTIME 90 days triamcinolone acetonide 0.5% 1 appl topical BID 14 days Tobacco use date assessed: 04/21/25 Dental Screening Dental Screen Date: 04/21/25 Did you have a dental visit in the last 12 months?: Yes Did you have a dental problem in the last 6 months where you did not have access to dental care?: No Was dental information given to patient?: Patient has dentist HPI HPI Comments History of Present Illness Details History of Present Illness The patient is a 49-year-old female presenting for a follow-up visit for management of chronic conditions and evaluation of neck pain. She has a history of type 2 diabetes mellitus and hypercholesterolemia. Recent lab work from December 2024 showed a normal but microcytic blood count, good electrolyte and renal function, an LDL of 86 mg/dL, and mildly low vitamin D, with no evidence of proteinuria. Her current hemoglobin A1c is 6.4%. The patient has long-standing neck pain, which is exacerbated by carrying her son. A cervical spine x-ray in August showed degenerative disc disease. For health maintenance, her last colonoscopy was in June 2023. A Pap smear from April 2025 showed ASCUS, and she is under the care of a crop adjuster. Her mammogram from February 2025 was incomplete, requiring further evaluation. She had a recent eye exam with normal findings. Health Maintenance The patient will continue to follow up with her crop adjuster for her history of ASCUS. She has been advised regarding her incomplete mammogram results. She was offered and declined the influenza and shingles vaccines. No medication refills are needed at this time. She will follow up in the office in 6 months. Social History - Functional Status: Reports neck pain f rom carrying her son. Results - Labs (current): Hemoglobin A1c is 6.4% . - Labs (December 2024): Normal blood count w ith microcytosis noted; electrolytes and renal function are good; LDL cholesterol is 86 mg/dL; vitamin D is mildly low; no proteinuria. - Imaging (August): Cervical spine X-ray showed degenerative disc disease/arthritis. - Imaging (February 2025): Mammogram wa s incomplete. - Procedures: Colonoscopy performed in [facility] 2023. [facility] Medical History Breast cancer screening by mammogram Encounter for screening colonoscopy Annual physical exam Pre-op examination Palpitations Fibroadenoma of breast Skin tag Well woman exam Vision blurred Varicose vein of leg Diverticular disease Left ulnar fracture GERD (gastroesophageal reflux disease) Hermansky-Pudlak syndrome Vitamin D deficiency Anxiety Overweight (BMI 25.0-29.9) Dysplasia of cervix, low grade (KELIN 1) Surgical History History of cholecystectomy H/O LEEP Family History Sister Uterine cancer Social History Housing: Apartment Alcohol intake: never Patient Tobacco Use Status: Never used Tobacco e-Cigarette/Vaping Use: Never Used Second Hand Smoke Exposure: No service: No Current occupational status: employed 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 1. Little interest or pleasure in doing things: not at all 2. Feeling down, depressed, or hopeless: not at all 3. Trouble falling or staying asleep, or sleeping too much: not at all 4. Feeling tired or having little energy: not at all 5. Poor appetite or overeating: not at all 6. Feeling bad about yourself - or that you are a failure or have let yourself or your family down: not at all 7. Trouble concentrating on things, such as reading the newspaper or watching television: not at all 8. Moving or speaking so slowly that other people could have noticed. Or the opposite - being so fidgety or restless that you have been moving around a lot more than usual: not at all 9. Thoughts that you would be better off or of hurting yourself in some way: not at all Total score: 0 Depression Screening Interpretation: Negative Depression Screening Done: Yes Source: Developed by Drs. Johnny Murphy, Antionette Alexander, Guy Cortes and colleagues, with an educational carla from [employer]. Thrive Questionnaire Date Thrive assessed: 12/26/24 I am a: Patient What is your living situation today?: I have a steady place to live Within the past 12 months, did the food you bought not last and you didn't have the money to get more?: Often true Within the past 12 months, did you worry whether your food would run out before you got money to buy more?: Never true Do you have trouble paying for medicines?: No Do you have trouble getting transportation to medical appointments?: No Do you have trouble paying your heating and electricity bill?: No Do you have trouble taking care of your child, family member or friend?: No Do you have trouble with day-to-day activities such as bathing, preparing meals, shopping, managing finances, etc.?: No Are you currently unemployed and looking for a job?: No Are you interested in more education?: No Currently or been in a relationship where the following occur: No concerns reported THRIVE Score: 1 AUDIT C Alcohol Use Questionnaire (AUDIT-C) 1. How often do you have a drink containing alcohol?: Never Total Score: 0 LUIS-7 AMB Questionnaire LUIS-7 Date LUIS - 7 assessed: 12/26/24 Feeling nervous, anxious, or on edge: 0 = Not at all Not being able to stop or control worryin = Not at all Worrying too much about different things: 0 = Not at all Trouble relaxin = Not at all Being so restless that it is hard to sit still: 0 = Not at all Becoming easily annoyed or irritable: 0 = Not at all Feeling afraid as if something awful might happen: 0 = Not at all Total LUIS-7 score (0-4 normal; 5-9 mild; 10-14 moderate; 15-21 severe): 0 Source: Developed by Drs. Johnny Murphy, Antionette Alexander, Guy Cortes and colleagues, with an educational carla from [employer]. Review of Systems Narrative Review of Systems - Musculoskeletal: Reports long-standing neck pain with limited range of motion. - Integumentary: Denies rashes or redness. - Gastrointestinal: Reports good bowel movements. - Constitutional: Denies sweating. Physical exam (Primary Care) Vital Signs: Last Vital Signs Temp 97.1 F 04/21/25 13:00 Pulse 85 04/21/25 13:00 BP 114/72 04/21/25 13:00 Pulse Ox 97 04/21/25 13:00 Oxygen Delivery Method Room Air 04/21/25 13:00 BMI result Body Mass Index 24.6 Tobacco/Smoking Status: Tobacco use Status Tobacco use date assessed 04/21/25 04/21/25 13:03 Patient Tobacco Use Status Never used Tobacco 04/21/25 12:59 Tobacco use type 08/12/24 08:13 e-Cigarette/Vaping Use Never Used 04/21/25 12:59 PHQ-9: PHQ-9 Score PHQ-9: Total score 0 04/21/25 13:12 Depression Screening Interpretation: Negative Thrive Assessment: Date of Thrive Assessment Date Thrive assessed 12/26/24 04/21/25 12:59 Currently or been in a relationship where the following occur: No concerns reported Narrative Physical Exam - Respiratory: Lungs were auscultated. - Skin: No rashes or redness noted. - General: No diaphoresis observed. Const General: alert; No acute distress Eyes Conjunctivae: conjunctivae normal Resp Auscultation: clear to auscultation bilaterally Cardio Rate: regular rate Rhythm: regular rhythm GI Inspection: Yes normal to inspection Extrem General: Yes normal to inspection and No edema Results AMB Hemoglobin A1c AMB Hemoglobin A1c 6.4 % Last Edit by Jsesica Hayes CMA on 04/21/25 13:10 Results Reviewed Results Reviewed: Laboratory Last Values Hgb A1c (Clinic) 6.4 % (4.0-6.0) H 04/21/25 13:03 Coding Level of Care Code Est Pt Level 4 (52201) Diagnoses Type 2 diabetes mellitus with hyperglycemia E11.65 Hypercholesterolemia E78.00 ASCUS with positive high risk HPV cervical R87.610; R87.810 Assessment & Plan Assessment & Plan (1) Type 2 diabetes mellitus with hyperglycemia: Comment: Dr. Noonan. Eye and lasik Code(s): E11.65 - Type 2 diabetes mellitus with hyperglycemia Category: Medical Plan: Decrease the amount of carbohydrate intake, pasta, bread, rice and potatoes are all sugar and that is aside from all the sweet stuff, remember that fruits are good but they are Sweet also. Hemoglobin A1c goal of less than 6.5. Patient on Jardiance 10 mg once a day metformin a 1000 mg twice a day (2) Hypercholesterolemia: Code(s): E78.00 - Pure hypercholesterolemia, unspecified Category: Medical Plan: Avoid fried foods, chicken skin, eggs, butter margarine, pastries and meat. Be it pork or beef they have a lot of cholesterol December 2024 last blood work LDL goal of less than 100 and triglyceride of less than 150 on simvastatin (3) ASCUS with positive high risk HPV cervical: Code(s): R87.610 - Atypical squamous cells of undetermined significance on cytologic smear of cervix (ASC-US); R87.810 - Cervical high risk human papillomavirus (HPV) DNA test positive Category: Medical Plan: Continue to follow-up with gynecology Plan Plan Patient was informed and verbally consented to the use of an ambient scribe for clinic note documentation during this visit. 1. Diabetes Mellitus, Type 2 The patient's hemoglobin A1c is 6.4%, which meets the goal of less than 6.5%. She will continue her current regimen of Jardiance 10 mg once daily and metformin 1000 mg twice daily. A follow-up is scheduled in 6 months to continue monitoring glycemic control. 2. Hypercholesterolemia The patient's LDL cholesterol is 86 mg/dL, which is within the goal of less than 100 mg/dL. She will continue taking simvastatin and is encouraged to maintain diet and exercise. 3. Cervicalgia The patient reports chronic neck pain, and a previous X-ray in August confirmed cervical degenerative disc disease. A referral for physical therapy will be placed to address the pain. A muscle relaxant will be prescribed, with counseling provided on its potential to cause drowsiness. The use of heat for symptomatic relief was also recommended. Discussion Notes I reviewed the patient's recent lab results with her, noting that her diabetes is well-controlled with a hemoglobin A1c of 6.4% and her cholesterol is at goal with an LDL of 86 mg/dL. We discussed her chronic neck pain, which is related to degenerative arthritis confirmed on a prior X-ray. I recommended physical therapy and prescribed a muscle relaxant, counseling her that the medication can make her sleepy and should not be taken when she needs to concentrate. We also discussed health maintenance, including her history of ASCUS, which is being managed by gynecology, and the need for follow-up on an incomplete mammogram. I offered the flu and shingles vaccines, but she declined them. The plan is to follow up in six months for ongoing management of her chronic conditions, but she should contact us sooner if any problems arise. Patient Instructions - Continue taking your diabetes medications (Jardiance and metformin) and cholesterol medication (simvastatin) as prescribed. - Continue to follow your diet and exercise plan. - We are sending a prescription for a muscle relaxant to [facility] for your neck pain. - Be aware that the muscle relaxant can make you sleepy, so do not take it if you need to be alert or concentrate. - Using heat on your neck may help relieve pain. - We have ordered physical therapy for your neck. It is important to do the exercises they teach you. - Continue to follow up with your gynecology doctor. - Please schedule a follow-up appointment in this office in 6 months. - If you have any problems before your next appointment, please let us know. Orders: Orders AMB Hemoglobin A1c Today Z13.9 - Encounter for screening, unspecified PT Evaluation and Treatment Today M54.2 - Cervicalgia Medications: Refilled cyclobenzaprine 5 mg PO BEDTIME PRN 20 tabs 0RF muscle spasm M54.6 - Pain in thoracic spine
[2025-04-21 13:00] VITALS: BP 114/72; PULSE 85; TEMP 36.2; O2SAT 97; BMI 24.6
--- OUTSIDE RECORDS SUMMARY | 2025-04-22 04:23 | XMS_ITS | Clinical Summary ---
Author Organization [address] [facility] Address [address] [place] [address] Phone Care Team Providers Care Fisheries Enforcement Officer Name Role Phone Slade Bliss MD Primary Care Provider Allergies No known active allergies Medications clotrimazole [...] PM EST Office Visit Orthopedic Surgery - [place] [address] [facility] [address] [place] [address] Brett Huerta, DPMolly 175 [facility] [address] [place] [address] Health Maintenance Due Date Last [...] patient's age to complete this topic Insurance [facility] PLAN Care Teams Fisheries Enforcement Officer Relationship Specialty Start Date End Date Slade Bliss MD [address] [place] [address] [place] [id number] PCP - General 12/25/22
== END 2025-04-21 13:20 | disposition home or self-care (01) ==
LOC: HO.HMCH 12:54
PROVIDERS: PCP Internal Medicine; Visit Provider Internal Medicine
DX: E11.65 Type 2 diabetes mellitus with hyperglycemia (principal); E78.00 Pure hypercholesterolemia, unspecified; R87.610 Atypical squamous cells of undetermined significance on cytologic smear of cervix (ASC-US); R87.810 Cervical high risk human papillomavirus (HPV) DNA test positive; Z13.9 Encounter for screening, unspecified

== ENCOUNTER → 2025-04-21 12:53 | Outpatient (BNVA) | payer OTHER, SELFPAY | PROVIDERS: PCP Internal Medicine; Visit Provider Internal Medicine | DX: E11.65 Type 2 diabetes mellitus with hyperglycemia (principal); E78.00 Pure hypercholesterolemia, unspecified; R87.610 Atypical squamous cells of undetermined significance on cytologic smear of cervix (ASC-US); R87.810 Cervical high risk human papillomavirus (HPV) DNA test positive | CPT/HCPCS: 83036; 99212 ==

== ENCOUNTER 2025-05-11 13:53 | Outpatient (AMB) | payer OTHER, SELFPAY ==
[2025-05-11 13:58] VITALS: BP 118/74; BMI 24.0
--- NOTE | 2025-05-11 13:58 | MHC.OFFVIS ---
Vital Signs 05/11/25 13:58 Height 5 ft 7 in Weight 153 lb BMI 24.0 BP 118/74 Intake Visit Reasons: Colposcopy Pipe Blanks Cut Off Saw Operator Required: Yes Pipe Blanks Cut Off Saw Operator Language: Nursing Technician Services: Pipe Blanks Cut Off Saw Operator Present (in person) Pipe Blanks Cut Off Saw Operator Name: Halima SHORT Information Interpreted: non-clinical & clinical Welder Plasma Arc: Welder Plasma Arc Present (Halima SHORT) Accompanied by: Self / Same As Patient Allergies No Known Allergies (NKA) Allergy (Mild, Verified 05/11/25 14:15) NOT APPLICABLE Is last menstrual period known: Yes Last menstrual period: 04/30/25 HPI Comments Details: Presenting for abnormal Pap smear showing low-grade VIANCA HPV 16 positive [facility] Medical History Breast cancer screening by mammogram Encounter for screening colonoscopy Annual physical exam Pre-op examination Palpitations Fibroadenoma of breast Skin tag Well woman exam Vision blurred Varicose vein of leg Diverticular disease Left ulnar fracture GERD (gastroesophageal reflux disease) Hermansky-Pudlak syndrome Vitamin D deficiency Anxiety Overweight (BMI 25.0-29.9) Dysplasia of cervix, low grade (KELIN 1) Surgical History History of cholecystectomy H/O LEEP Family History Sister Uterine cancer Social History Housing: Apartment Alcohol intake: never Patient Tobacco Use Status: Never used Tobacco e-Cigarette/Vaping Use: Never Used Second Hand Smoke Exposure: No service: No Current occupational status: employed 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 We thoroughly discussed the procedure itself, including its details, alternatives, and all associated risks. This included but not limited to the following complications such as bleeding, infection, and injury to the vagina, bladder, and vessels, as well as the potential need for transfusion with all its associated risks. Subsequently, the patient sign the consent. UPT done in the office was negative Pap smear result: LSIL/HPV 16 positive. Procedure: During the procedure, the following steps were performed: A speculum was inserted, and acetic acid was applied. Colposcopy was conducted, allowing visualization of the transformation zone. Acetowhite lesions were identified at the 7+9+12+4 o'clock position. Cervical biopsies were obtained from the 7+9+ o'clock position ECC was not done since endocervix is stenosed . Vaginoscopy of the upper vagina revealed no evidence of aceto-white lesions. Hemostasis was achieved using Monsel solution, and the patient tolerated the procedure well. Post-Procedure Instructions: The patient was advised to promptly contact the office or the after hours answering service or go to the emergency room if experiencing a temperature exceeding 100.4?F, abdominal pain, nausea/vomiting, or bleeding. Additionally, the patient was instructed to abstain from vaginal intercourse and bathtub use. The patient confirmed understanding of these instructions. Discharge Instructions: The patient was instructed to schedule a follow-up appointment in 2 weeks for further evaluation and management. Please note that this note was generated using a voice recognition program, and errors may have occurred during underwriting specialist. 48518-Xlgnyixul of cervix including upper vagina with biopsy and ECC Procedure code (CPT) selection complete Results AMB Test Urine AMB Test Urine Negative Last Edit by Halima Sanon CMA on 05/11/25 14:17 Results Reviewed Results Reviewed: Laboratory Last Values Tst Clinic Negative 05/11/25 14:17 Assessment & Plan Assessment & Plan (1) LGSIL on Pap smear of cervix: Comment: HPV 16 positive Code(s): R87.612 - Low grade squamous intraepithelial lesion on cytologic smear of cervix (LGSIL) Category: Medical Plan: Discussed with the patient the result of her abnormal pap, its significance, risk of progression, persistence, and regression. the false positive/negative rate of a Pap smear as a screening test in detecting cervical cancer and the indication for a diagnostic test -colposcopy, biopsy. The patient verbalized understanding and agreed with the plan, all questions answered. Colposcopy, biopsy /ECC done, see procedure note Orders: Orders AMB HCG Urine Test Today Z32.02 - Encounter for test, result negative AMB Colposcopy Today R87.612 - Low grade squamous intraepithelial lesion on cytologic smear of cervix (LGSIL) Coding Level of Care Code Procedure Only Diagnoses LGSIL on Pap smear of cervix R87.612 CPT Codes Colposcopy - CPT: 30888-Gagyukztc of cervix including upper vagina with biopsy and ECC ([id number])
--- OUTSIDE RECORDS SUMMARY | 2025-05-11 22:40 | XMS_ITS | Encounter Summary ---
Author Organization [employer] [facility] Address [address] [facility] [address] [place] [address] Care Team Providers Care Foster Care Social Worker Name Role Phone Unavailable Primary Care Provider Unavailabl e Encounter Details Date Type Department Care Team (Latest Contact Info) Description 11/22/[address] [facility] CONVERSIONS Dental, Provider, DDS Social History [...] Description 06/24/2025 12:45 PM EST Office Visit [facility] ADULT DENTAL [address] [place] [address] Krystal Zuniga [address] [place] [address] documented as of this encounter Visit Diagnoses Not on filedocumented in this encounter
--- OUTSIDE RECORDS SUMMARY | 2025-05-11 22:40 | XMS_ITS | Clinical Summary ---
Author Organization 175 [facility] Address [address] [place] [address] Phone Care Team Providers Care Recreational Leader Name Role Phone Slade Bliss MD Primary Care Provider [phone] Allergies No known active allergies Medications clotrimazole [...] PM EST Office Visit Orthopedic Surgery - [place] [address] [facility] [address] [place] [address] Brett Huerta, DPMolly 175 [facility] [address] [place] [address] Health Maintenance Due Date Last [...] patient's age to complete this topic Insurance [facility] PLAN Care Teams Recreational Leader Relationship Specialty Start Date End Date Slade Bliss MD [address] [place] [address] [place] [id number] PCP - General 12/25/22
--- OUTSIDE RECORDS SUMMARY | 2025-05-11 22:40 | XMS_ITS | Encounter Summary ---
Author Organization [email or web address] [facility] Address [address] [facility] [address], [place] [address] Care Team Providers Care Thread Singer Name Role Phone Unavailable Primary Care Provider Unavailabl e Encounter Details Date Type Department Care Team (Latest Contact Info) Description 09/29/[address] [facility] CONVERSIONS Dental, Provider, [...] 06/24/2025 12:45 PM EST Office Visit [facility] ADULT DENTAL [address] [place] [address] Krystal Zuniga [address] [place] [address] documented as of this encounter Visit Diagnoses Not on filedocumented in this encounter
--- OUTSIDE RECORDS SUMMARY | 2025-05-11 22:40 | XMS_ITS | Clinical Summary ---
Author Organization [employer] Address [address] [place] [address] [address] [place] [address] Care Team Providers Care Research Interviewer Name Role Phone Unavailable Primary Care Provider Unavailabl e Allergies No known active allergies Medications acetaminophen-c odeine (Tylenol w/ Codeine #3) 300-30 MG tablet TAKE 1 TABLET EVERY 4 HOURS NEEDED FOR PAIN 3 Active ergocalciferol (Vitamin D-2) 1.25 MG (21501 UT) capsule take 1 capsule by oral [...] [facility] [address] [place] [address] Nadia, Krystal [address] [place] [address] Health Maintenance Due Date Last Done Comments [...] Most Recently Relevant to Health Maintenance Insurance [facility] MEDICAID STAND ADULT
--- OUTSIDE RECORDS SUMMARY | 2025-05-11 22:40 | XMS_ITS | Encounter Summary ---
Author Organization [employer] [facility] Address [address] [facility] [address] [address] Care Team Providers Care Tree Wrapper Name Role Phone Unavailable Primary Care Provider Unavailabl e Encounter Details Date Type Department Care Team (Latest Contact Info) Description 08/25/2021 Abstract [facility] CONVERSIONS Dental, Provider, DDS Social [...] Description 06/24/2025 12:45 PM EST Office Visit [facility] ADULT DENTAL [address] [place] [address] Krystal Zuniga [address] [place] [address] documented as of this encounter Visit Diagnoses Not on filedocumented in this encounter
== END 2025-05-11 15:11 | disposition home or self-care (01) ==
LOC: HO.HWS 13:54
PROVIDERS: PCP Internal Medicine; Visit Provider Obstetrics & Gynecology
DX: R87.612 Low grade squamous intraepithelial lesion on cytologic smear of cervix (LGSIL) (principal); Z32.02 Encounter for pregnancy test, result negative
CPT/HCPCS: 57454

== ENCOUNTER 2025-05-11 13:53 | Outpatient (REF) | payer OTHER, SELFPAY | END 2025-05-11 13:54 | disposition home or self-care (01) | LOC: HO.LNP 13:53 | PROVIDERS: PCP Internal Medicine; Visit Provider Obstetrics & Gynecology | DX: R87.612 Low grade squamous intraepithelial lesion on cytologic smear of cervix (LGSIL) (principal); Z32.02 Encounter for pregnancy test, result negative | CPT/HCPCS: 88305 ==

== ENCOUNTER 2025-05-25 13:38 | Outpatient (REF) | payer OTHER, SELFPAY ==
--- NOTE | ~2025-05-25 | US_ITS ---
EXAMINATION(S): 1. MM DIAGNOSTIC DIGITAL BREAST TOMOSYNTHESIS, RIGHT 2. TARGETED ULTRASOUND OF THE RIGHT BREAST CLINICAL INFORMATION: -Callback from screening for right breast asymmetry in the inferior breast posterior depth on the MLO view. - Patient status post ultrasound-guided needle core biopsy of right solid mass at 3 o'clock position 3 cm from the nipple on May 09, 2017. Butterfly hydromark tissue marker placement. Pathology showed fibroadenoma. COMPARISON: Comparison made to multiple prior, most recent February 16, 2025, and most remote April 10, 2017. TECHNIQUE: Digital breast tomosynthesis is performed in full field ML 90 degrees along with computer-aided detection (CAD). Synthesized 2D images are generated from the tomosynthesis. Spot compression tomosynthesis were obtained. FINDINGS: BREAST COMPOSITION: The breasts are heterogeneously dense, which may obscure small masses. RIGHT BREAST: An approximately 1.3 cm oval mass is seen in the lower breast at approximately 4 cm from the nipple, inferior to the biopsy proven fibroadenoma (MLO 41/62, CC 40/61). This is thought to be overlapping with the biopsy-proven fibroadenoma (which contains the tissue marker) in the medial breast on the CC view. Targeted ultrasound of the right breast was performed at the location of the mammographic finding. The survey shows a cluster for cysts at 3:00 position 5 cm from the nipple, with overall measurements of 1.6 x 0.4 x 0.6 cm. Findings correlate with the mammographic finding. US/US Breast RT Limited Mamm Only IMPRESSION: RIGHT BREAST: Cluster for cysts at 3 o'clock position at 5 cm from the nipple. Benign, no evidence of malignancy. Normal interval follow-up is recommended in 12 months. ASSESSMENT: BI-RADS: Category 2: Benign RECOMMENDATION: 1 year F/U Results were provided to the patient at time of visit by the technologist. This patient's information was entered into a reminder system with a target due date for their next mammogram. Electronically signed by: Jose G Davis MD 05/25/2025 02:55 PM [facility]
--- OUTSIDE RECORDS SUMMARY | 2025-05-25 17:03 | XMS_ITS | Encounter Summary ---
Author Organization [facility] Address [address] [facility] [address], [place] [address] Care Team Providers Care Icu Registered Nurse Name Role Phone Unavailable Primary Care Provider Unavailabl e Encounter Details Date Type Department Care Team (Latest Contact Info) Description 09/29/2020 Abstract [facility] CONVERSIONS Dental, Provider, DDS Social [...] Description 06/24/2025 12:45 PM EST Office Visit [facility] ADULT DENTAL [address] [place] [address] Krystal Zuniga [address] [place] [address] documented as of this encounter Visit Diagnoses Not on filedocumented in this encounter
--- OUTSIDE RECORDS SUMMARY | 2025-05-25 17:03 | XMS_ITS | Clinical Summary ---
Author Organization [employer] Address [address] [place] [address] [address] [place] [address] Care Team Providers Care Paper Pattern Inspector Name Role Phone Unavailable Primary Care Provider Unavailabl e Allergies No known active allergies Medications acetaminophen-c odeine (Tylenol w/ Codeine #3) 300-30 MG tablet TAKE 1 TABLET EVERY 4 HOURS NEEDED FOR PAIN 3 Active ergocalciferol (Vitamin D-2) 1.25 MG (71023 UT) capsule take 1 capsule by oral [...] Description 06/24/2025 12:45 PM EST Office Visit [facility]ULT [facility] [address] [place] [address] Nadia, Krystal [address] [place] [address] Health Maintenance Due Date Last Done Comments [...] Most Recently Relevant to Health Maintenance Insurance [facility] MEDICAID STAND ADULT
--- OUTSIDE RECORDS SUMMARY | 2025-05-25 17:03 | XMS_ITS | Encounter Summary ---
Author Organization [employer] [facility] Address [address] [facility] [address] [place] [address] Care Team Providers Care Zinc Plate Grainer Name Role Phone Unavailable Primary Care Provider Unavailabl e Encounter Details Date Type Department Care Team (Latest Contact Info) Description 11/22/2018 Abstract [facility] CONVERSIONS Dental, Provider, DDS Social History [...] 06/24/2025 12:45 PM EST Office Visit [facility] ADULT DENTAL [address] [place] [address] Krystal Zuniga [address] [place] [address] documented as of this encounter Visit Diagnoses Not on filedocumented in this encounter
--- OUTSIDE RECORDS SUMMARY | 2025-05-25 17:03 | XMS_ITS | Encounter Summary ---
Author Organization [employer] [facility] Address [address] [facility] [address] [address] Care Team Providers Care Robotics Testing Technician Name Role Phone Unavailable Primary Care Provider Unavailabl e Encounter Details Date Type Department Care Team (Latest Contact Info) Description 08/25/2021 Abstract [facility] CONVERSIONS Dental, Provider, DDS Social History [...] 12:45 PM EST Office Visit [facility] ADULT [facility] [address] [place] [address] Krystal Zuniga [address] [place] [address] documented as of this encounter Visit Diagnoses Not on filedocumented in this encounter
--- OUTSIDE RECORDS SUMMARY | 2025-05-25 17:03 | XMS_ITS | Clinical Summary ---
Author Organization [address] [facility] Address [address] [place] [address] Phone Care Team Providers Care Gold Stamper Name Role Phone Slade Bliss MD Primary Care Provider [phone] Allergies No known active allergies Medications clotrimazole [...] PM EST Office Visit [facility] [place] [address] [facility] [address] [place] [address] Brett Huerta, DPMolly [address] [facility] [address] [place] [address] Health Maintenance Due Date Last [...] patient's age to complete this topic Insurance [employer] Care Teams Gold Stamper Relationship Specialty Start Date End Date Slade Bliss MD [address] [place] [address] [place] [id number] PCP - General 12/25/22
== END 2025-05-25 13:39 | disposition home or self-care (01) ==
LOC: HO.MAMMO 13:38
PROVIDERS: PCP Internal Medicine; Visit Provider Internal Medicine
DX: N64.89 Other specified disorders of breast (principal)
CPT/HCPCS: 76642; 77061; 77065

== ENCOUNTER → 2025-05-25 14:00 | Outpatient (BNV) | payer OTHER, SELFPAY | PROVIDERS: PCP Internal Medicine; Visit Provider Radiology Body Imaging | DX: N63.15 Unspecified lump in the right breast, overlapping quadrants (principal) | CPT/HCPCS: 76642; 77061; 77065 ==

== ENCOUNTER 2025-06-02 13:42 | Outpatient (AMB) | payer OTHER, SELFPAY ==
--- NOTE | 2025-06-02 13:42 | MHC.OFFVIS ---
Intake Visit Reasons: Colpo results Middle School Tutor Required: Yes Middle School Tutor Language: Tuvaluan Information Interpreted: non-clinical & clinical Allergies No Known Allergies (NKA) Allergy (Mild, Verified 06/02/25 13:43) NOT APPLICABLE Post menopausal: Yes HPI Comments Details: The patient is schedule a telehealth visit post colpo for follow-up. The patient is doing well with no complaints. The pathology showed the following: A. Cervix, 4:00, biopsy: Squamous mucosa; negative for dysplasia; no endocervical glandular mucosa present. B. Cervix, 7:00, biopsy: Squamous mucosa; negative for dysplasia; no endocervical glandular mucosa present. C. Cervix, 9:00, biopsy: Squamous mucosa; negative for dysplasia; no endocervical glandular mucosa present. D. Cervix, 12:00, biopsy: Squamous mucosa with rare atypical cells; no endocervical glandular mucosa present (see comment). Comment: (D): The rare atypical cells are insufficient for an unequivocal diagnosis of low-grade dysplasia. There is no evidence of high-grade dysplasia. The low-grade dysplastic cells in the patient's previous Pap test ([id number]) are similar to the rare atypical cells in the current biopsy [facility] Medical History Breast cancer screening by mammogram Encounter for screening colonoscopy Annual physical exam Pre-op examination Palpitations Fibroadenoma of breast Skin tag Well woman exam Vision blurred Varicose vein of leg Diverticular disease Left ulnar fracture GERD (gastroesophageal reflux disease) Hermansky-Pudlak syndrome Vitamin D deficiency Anxiety Overweight (BMI 25.0-29.9) Dysplasia of cervix, low grade (KELIN 1) Surgical History History of cholecystectomy H/O LEEP Family History Sister Uterine cancer Social History Housing: Apartment Alcohol intake: never Patient Tobacco Use Status: Never used Tobacco e-Cigarette/Vaping Use: Never Used Second Hand Smoke Exposure: No service: No Current occupational status: employed 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 Gender identity: Female Cognitive needs: No Hearing needs: No Vision needs: No Female Reproductive History Menstrual Age of Menarche: 11 Review of Systems Const All systems reviewed & are unremarkable except as noted in HPI and below Reports as per HPI and Reports no additional complaints GI Reports no additional complaints Reports no additional complaints Telehealth Telehealth Telehealth Platform: [facility] Location of provider rendering services: practice address Location of patient: address on file Patient Identification confirmed using: Name, : Yes Telehealth method: video Patient verbally consented to treatment: Yes Patient verbally consented to billing insurance company: Yes Patient informed of any privacy concerns related to visit: Yes Minutes spent on Phone/Video with Pt.: 5 Assessment & Plan Assessment & Plan (1) Dysplasia of cervix, low grade (KELIN 1): Comment: Persistent since 2018 status post LEEP 04/28 LGSIL colpo biopsy ECC? KELIN 1 Code(s): N87.0 - Mild cervical dysplasia Category: Medical Plan: Discussed with the patient the pathology results of the colposcopy biopsies & endocervical curettage ( ? mild dysplasia-KELIN 1). Discussed with the patient the sensitivity specificity, positive and negative predictive value in detecting cervical cancer in addition discussed the regression, persistence and progression rates. Recommended co-testing in 12 months, if cytology and or HPV are abnormal will proceed was colposcopy biopsy and endocervical curettage, if lesions gets worse or stays persistent for 2 years will proceed with loop electric excision procedure. Instructions given to the patient to schedule a co test appointment in 1 year. All questions answered the patient verbalized understanding. I spent a total of 20 minutes reviewing the chart, talking to the patient via video and documenting in the medical record. Coding Level of Care Code Tele Est Pt Level 3 (65000) Diagnoses Dysplasia of cervix, low grade (KELIN 1) N87.0
--- OUTSIDE RECORDS SUMMARY | 2025-06-02 17:33 | XMS_ITS | Clinical Summary ---
Author Organization [employer] Address [address] [place] [address] [address] [place] [address] Care Team Providers Care Used Car Make Ready Mechanic Name Role Phone Unavailable Primary Care Provider Unavailabl e Allergies No known active allergies Medications acetaminophen-c odeine (Tylenol w/ Codeine #3) 300-30 MG tablet TAKE 1 TABLET EVERY 4 HOURS NEEDED FOR PAIN 3 Active ergocalciferol (Vitamin D-2) 1.25 MG (69505 UT) capsule take 1 capsule by oral [...] Description 06/24/2025 12:45 PM EST Office Visit [facility] ADULT D[facility] [address] [place] [address] Nadia, Krystal [address] [place] [address] Health Maintenance Due Date Last Done Comments [...] Most Recently Relevant to Health Maintenance Insurance [facility] MEDICAID STAND ADULT
--- OUTSIDE RECORDS SUMMARY | 2025-06-02 17:33 | XMS_ITS | Encounter Summary ---
Author Organization [employer] [facility] Address [address] [facility] [address] [address] Care Team Providers Care Social Worker Palliative Care Name Role Phone Unavailable Primary Care Provider Unavailabl e Encounter Details Date Type Department Care Team (Latest Contact Info) Description 09/29/2020 Abstract [facility] CONVERSIONS Dental, Provider, DDS Social History Tobacco [...] Description 06/24/2025 12:45 PM EST Office Visit [facility] [address] [place] [address] Krystal Zuniga [address] [place] [address] documented as of this encounter Visit Diagnoses Not on filedocumented in this encounter
--- OUTSIDE RECORDS SUMMARY | 2025-06-02 17:33 | XMS_ITS | Clinical Summary ---
Author Organization [address] [facility] Address [address] [place] [address] Phone Care Team Providers Care Carder Blankets Name Role Phone Slade Bliss MD Primary Care Provider [phone] Allergies No known active allergies Medications clotrimazole [...] 06/02/2024 1:04 PM EST Plan of Treatment Health Maintenance Due Date Last Done Comments [...] patient's age to complete this topic Insurance [facility] [employer] Care Teams Carder Blankets Relationship Specialty Start Date End Date Slade Bliss MD [address] [facility] [address] [place] [address] PCP - General 12/25/22
--- OUTSIDE RECORDS SUMMARY | 2025-06-02 17:33 | XMS_ITS | Encounter Summary ---
Author Organization [employer] [facility] Address [address] [facility] [address] [place] [address] Care Team Providers Care Survey Coordinator Name Role Phone Unavailable Primary Care Provider Unavailabl e Encounter Details Date Type Department Care Team (Latest Contact Info) Description 11/22/2018 Abstract [facility] CONVERSIONS Dental, Provider, DDS Social History Tobacco [...] Description 06/24/2025 12:45 PM EST Office Visit [facility] ADULT DENTAL [address] [place] [address] Krystal Zuniga [address] [place] [address] documented as of this encounter Visit Diagnoses Not on filedocumented in this encounter
--- OUTSIDE RECORDS SUMMARY | 2025-06-02 17:33 | XMS_ITS | Encounter Summary ---
Author Organization [employer] [facility] Address [address] [facility] [address] [address] Care Team Providers Care Bread Oven Operator Name Role Phone Unavailable Primary Care Provider Unavailabl e Encounter Details Date Type Department Care Team (Latest Contact Info) Description 08/25/2021 Abstract [facility] CONVERSIONS Dental, Provider, DDS Social History [...] Description 06/24/2025 12:45 PM EST Office Visit [facility] ADULT DENT[facility] [address] [place] [address] Krystal Zuniga [address] [place] [address] documented as of this encounter Visit Diagnoses Not on filedocumented in this encounter
== END 2025-06-02 14:46 | disposition home or self-care (01) ==
LOC: HO.HWS 13:42
PROVIDERS: PCP Internal Medicine; Visit Provider Obstetrics & Gynecology
DX: N87.0 Mild cervical dysplasia (principal)
CPT/HCPCS: 99213